=== PATIENT | male | born 1935 | race Caucasian/White ===

== ENCOUNTER 2017-01-31 05:03 | Inpatient (IN) | payer OTHER, MEDICARE ==
[~2017-01-31] VITALS: Ht 177.8 cm; Wt 75.1 kg
[2017-01-31] VITALS (18 sets, daily range): BP systolic 75–197; BP diastolic 47–105; PULSE 53–149; RESP 14–42; TEMP 97–98.4; O2SAT 92–100
[~2017-01-31 05:03] MED LIST: LOVA20TA PO
[2017-01-31] MEDS ORDERED: SODIUM CHLORIDE 0.9% FLUSH 10 ML FLUSH IVF PRN ×2 (05:15→05:30)
--- NOTE | 2017-01-31 05:15 | PD ---
HPI Chief Complaint: Respiratory Distress Time Seen by Provider: 05:08 Travel History International Travel<30 days: No Contact w/Intl Traveler<30days: No Traveled to known affect area: No History of Present Illness HPI 81-year-old male with history of COPD and lung cancer currently under radiation therapy and chemotherapy, presents to the ER today because of worsening shortness of breath. He states that it is the same as his previous issues with lung cancer. However, his daughter states that this is worse. He has been coughing. He denies any fevers, chest pains, or any other symptoms. Worse with exertion. He was given albuterol initially by EMS but that seemed to make his symptoms worse. Modifying Factors: None Associated Signs & Symptoms: Coughing, shortness of breath Risk Factors: Lung cancer history PFSH Past Medical History Cancer: Yes (LUNG ) Cardiovascular Problems: Yes High Cholesterol: Yes Chemotherapy: Yes Endocrine: No Gastrointestinal Disorders: No Genitourinary: No Immune Disorder: No Implanted Vascular Access Dvce: No Musculoskeletal: No Neurologic: No Psychiatric: No Reproductive: No Respiratory: No Past Surgical History Other Surgery: Yes (HERNIA REPAIR) Social History Alcohol Use: Yes ( 3-4 DAILY BEER) Tobacco Use: No Substance Use: No Allergies-Medications (Allergen,Severity, Reaction): Coded Allergies: No Known Allergies (Unverified , 01/31/17) Reported Meds & Prescriptions Reported Meds & Active Scripts Active Reported Prednisone 50 Mg Tab 100 Mg PO DAILY Doxycycline Hyclate 100 Mg Cap 100 Mg PO BID Lovastatin 40 Mg Tab 80 Mg PO DAILY Mirtazapine 7.5 Mg Tab 7.5 Mg PO HS Anoro Ellipta Inh (Umeclidinium/Vilanterol) 62.5-25 Mcg/Act Aero 1 Puff INH DAILY Review of Systems Except as stated in HPI: all other systems reviewed are Neg Physical Exam Narrative GENERAL: Well-developed barrel chested elderly white male patient in moderate respiratory distress. Able to mouth a few words at a time. Awake and oriented 3. SKIN: Focused skin assessment warm/dry. HEAD: Atraumatic. Normocephalic. EYES: Pupils equal and round. No scleral icterus. No injection or drainage. ENT: No nasal bleeding or discharge. Mucous membranes pink and moist. NECK: Trachea midline. No JVD. CARDIOVASCULAR: Regular rate and rhythm. No murmur appreciated. RESPIRATORY: Moderate accessory muscle use. Bilateral wheezing throughout. Breath sounds decrease in the right compared to the left. GASTROINTESTINAL: Abdomen soft, non-tender, nondistended. Hepatic and splenic margins not palpable. MUSCULOSKELETAL: No obvious deformities. No clubbing. No cyanosis. No edema. NEUROLOGICAL: Awake and alert. No obvious cranial nerve deficits. Motor grossly within normal limits. Normal speech. PSYCHIATRIC: Appropriate mood and affect; insight and judgment normal. Data Data Last Documented VS Vital Signs Date Time Temp Pulse Resp B/P Pulse Ox O2 Delivery O2 Flow Rate FiO2 01/31/17 05:44 117 30 134/90 96 BiPAP 01/31/17 05:11 50 01/31/17 05:04 97.0 Orders Complete Blood Count With Diff (01/31/17 05:08) Comprehensive Metabolic Panel (01/31/17 05:08) B-Type Natriuretic Peptide (01/31/17 05:08) Act Partial Throm Time (Ptt) (01/31/17 05:08) Prothrombin Time / Inr (Pt) (01/31/17 05:08) Ckmb (Isoenzyme) Profile (01/31/17 05:08) Troponin I (01/31/17 05:08) Arterial Blood Gas (Abg) (01/31/17 05:08) Iv Access Insert/Monitor (01/31/17 05:08) Electrocardiogram (01/31/17 05:08) Ecg Monitoring (01/31/17 05:08) Oximetry (01/31/17 05:08) Oxygen Administration (01/31/17 05:08) Chest, Single Ap (01/31/17 05:08) Sodium Chloride 0.9% Flush (Ns Flush) (01/31/17 05:15) Resp Bipap / Cpap Non Invas Vt (01/31/17 05:08) Lactic Acid Sepsis Protocol (01/31/17 05:10) Blood Culture (01/31/17 05:10) Diltiazem Inj (Cardizem Inj) (01/31/17 05:30) Diltiazem Inj (Cardizem Inj) (01/31/17 05:30) Sodium Chloride 0.9% Flush (Ns Flush) (01/31/17 05:30) Cefepime Inj (Maxipime Inj) (01/31/17 05:47) Azithromycin Inj (Zithromax Inj) (01/31/17 05:47) Admit Order (Ed Use Only) (01/31/17 05:56) Sodium Chlor 0.9% 1000 Ml Inj (Ns 1000 M (01/31/17 06:00) Labs Laboratory Tests Test 01/31/17 01/31/17 05:10 05:14 White Blood Count 34.4 TH/MM3 Red Blood Count 4.82 MIL/MM3 Hemoglobin 14.0 GM/DL Hematocrit 43.0 % Mean Corpuscular Volume 89.1 FL Mean Corpuscular Hemoglobin 29.0 PG Mean Corpuscular Hemoglobin 32.5 % Concent Red Cell Distribution Width 15.9 % Platelet Count 148 TH/MM3 Mean Platelet Volume 8.3 FL Neutrophils (%) (Auto) 69.3 % Lymphocytes (%) (Auto) 8.1 % Monocytes (%) (Auto) 7.7 % Eosinophils (%) (Auto) 14.5 % Basophils (%) (Auto) 0.4 % Neutrophils # (Auto) 23.8 TH/MM3 Lymphocytes # (Auto) 2.8 TH/MM3 Monocytes # (Auto) 2.6 TH/MM3 Eosinophils # (Auto) 5.0 TH/MM3 Basophils # (Auto) 0.1 TH/MM3 CBC Comment AUTO DIFF Prothrombin Time 11.5 SEC Prothromb Time International 1.0 RATIO Ratio Activated Partial 25.4 SEC Thromboplast Time Sodium Level 132 MEQ/L Potassium Level 4.3 MEQ/L Chloride Level 99 MEQ/L Carbon Dioxide Level 24.9 MEQ/L Anion Gap 8 MEQ/L Blood Urea Nitrogen 17 MG/DL Creatinine 0.93 MG/DL Estimat Glomerular Filtration 78 ML/MIN Rate Random Glucose 116 MG/DL Calcium Level 8.9 MG/DL Total Bilirubin 0.4 MG/DL Aspartate Amino Transf 15 U/L (AST/SGOT) Alanine Aminotransferase 20 U/L (ALT/SGPT) Alkaline Phosphatase 369 U/L Total Creatine Kinase 64 U/L Troponin I LESS THAN 0.02 NG/ML B-Type Natriuretic Peptide 175 PG/ML Total Protein 7.2 GM/DL Albumin 3.0 GM/DL Lactic Acid Level 2.8 mmol/L MDM Medical Decision Making Medical Screen Exam Complete: Yes Emergency Medical Condition: Yes Medical Record Reviewed: Yes Interpretation(s) EKG shows atrial fibrillation at a rate of 160 bpm with no signs of acute ST-T changes. Last 24 hours Impressions Chest X-Ray 01/31/17 0508 Signed Impressions: Service Date/Time: Tuesday, January 31, 2017 05:12 - CONCLUSION: 1. Right-sided atelectasis versus pneumonia with large right effusion. The patient has known malignancy Aidan Razo MD Laboratory Tests Test 01/31/17 01/31/17 05:10 05:14 White Blood Count 34.4 TH/MM3 (4.0-11.0) Platelet Count 148 TH/MM3 (150-450) Lymphocytes (%) (Auto) 8.1 % (9.0-44.0) Eosinophils (%) (Auto) 14.5 % (0.0-4.0) Neutrophils # (Auto) 23.8 TH/MM3 (1.8-7.7) Monocytes # (Auto) 2.6 TH/MM3 (0-0.9) Eosinophils # (Auto) 5.0 TH/MM3 (0-0.4) Sodium Level 132 MEQ/L (136-145) Estimat Glomerular Filtration 78 ML/MIN (>89) Rate Random Glucose 116 MG/DL (74-106) Alkaline Phosphatase 369 U/L (45-117) Troponin I LESS THAN 0.02 NG/ML (0.02-0.05) B-Type Natriuretic Peptide 175 PG/ML (0-100) Albumin 3.0 GM/DL (3.4-5.0) Lactic Acid Level 2.8 mmol/L (0.4-2.0) Differential Diagnosis Shortness of breath, coughingCOPD exacerbation versus pneumonia versus pneumothorax versus CHF versus dysrhythmias Narrative Course Initial EKG shows A. fib with rapid ventricular response at a rate of 160 bpm. Patient was given Cardizem and some IV fluids to his hypotension. BiPAP was added to improve his breathing and oxygenation. His blood pressure improved and his breathing improved once he was put on BiPAP. Chest x-ray shows significant right pleural effusion, whiteout of the right lung. Initial white blood cell count was 34. IV antibiotics were started after blood cultures were drawn. At this point, patient was determined in need of ICU care. Patient is fairly complex and at this point, the case was discussed with Dr. Collier for admission. I have talked to patient's and family regarding patient's problems and plan for admission as well. Aggregate critical care time was 35 minutes. Time to perform other separately billable procedures was not included in the critical care time. My time did not include minutes spent treating any other patients simultaneously or on activities that did not directly contribute to the patient's treatment. The services I provided to this patient were to treat and/or prevent clinically significant deterioration that could result in: Respiratory distress, respiratory failure, fulminant pneumonia, sepsis, I provided critical care services requiring my management, as noted below: Chart data review, documentation time, medication orders and management, vital sign assessments/reviewing monitor data, ordering and reviewing lab tests, ordering and interpreting/reviewing x-rays and diagnostic studies, care of the patient and discussion of the patient with the admitting physicians. Diagnosis Primary Impression: Severe sepsis Additional Impression: Pleural effusion, right Admitting Information Admitting Physician Requests: Admit Domenico Solis MD January 31, 2017 05:15
[2017-01-31 05:25] LABS: AUTOMATED NEUTROPHIL # 23.8 TH/MM3 (1.8-7.7); BASOPHIL # 0.1 TH/MM3 (0-0.2); BASOPHIL % 0.4 % (0.0-2.0); EOSINOPHIL % 14.5 % (0.0-4.0); LYMPH % 8.1 % (9.0-44.0); LYMPHOCYTE # 2.8 TH/MM3 (1.0-4.8); MEAN CELL VOLUME 89.1 FL (80.0-100.0); MEAN CORPUSCULAR HGB CONC 32.5 % (32.0-36.0); MONO % 7.7 % (0.0-8.0); NEUT % 69.3 % (16.0-70.0); PLATELET COUNT 148 TH/MM3 (150-450); RED BLOOD COUNT 4.82 MIL/MM3 (4.50-5.90); RED CELL DISTRIBUTION WIDTH 15.9 % (11.6-17.2); WHITE BLOOD COUNT 34.4 TH/MM3 (4.0-11.0)
[2017-01-31 05:30] LABS: HEMO FLAGS AUTO DIFF
[2017-01-31] MEDS ORDERED: DILTIAZEM INJ 125 MG in SODIUM CHLORIDE 0.9% INJ 100 ML IV SCH (05:30)
[2017-01-31] MEDS ORDERED: DILTIAZEM HCL 25 MG/5 ML VIAL IV PUSH ONE (05:30)
[2017-01-31 05:46] LABS: APTT (PATIENT) 25.4 SEC (24.3-30.1); PROTHROMBIN TIME - PATIENT 11.5 SEC (9.8-11.6)
[2017-01-31] MEDS ORDERED: AZITHROMYCIN INJ 500 MG in SODIUM CHLOR 0.9% 250 ML INJ 250 ML IV STA (05:47)
[2017-01-31] MEDS ORDERED: CEFEPIME INJ 2,000 MG in SODIUM CHLORIDE 0.9% INJ 100 ML IV STA (05:47)
--- NOTE | 2017-01-31 05:52 | RADRPT ---
EXAM DATE/TIME: 01/31/2017 05:12 [facility] COMPARISON: CHEST SINGLE AP, January 23, 2014, 5:22. INDICATIONS : Shortness of breath. 4 Pack a day smoker. MEDICAL HISTORY : Chronic obstructive pulmonary disease. Lung Cancer SURGICAL HISTORY : None. ENCOUNTER: Initial ACUITY: 1 day PAIN SCORE: 0/10 LOCATION: Bilateral chest FINDINGS: The cardiac silhouette is normal in transverse diameter. There is near-complete opacification the rig ht hemithorax The left lung is free of acute parenchymal opacity. There is prominence of the aortic k nob is with calcification characteristic of atherosclerotic vascular disease. CONCLUSION: 1. Right-sided atelectasis versus pneumonia with large right effusion. The patient has known malignan cy Aidan Razo MD on January 31, 2017 at 5:50 Board Certified Radiologist. This report was verified electronically.
[2017-01-31] MEDS ORDERED: PRED50 PO (05:58)
[2017-01-31] MEDS ORDERED: UMEC1AER INH (05:58)
[2017-01-31] MEDS ORDERED: MIRT1TAB PO (05:58)
[2017-01-31] MEDS ORDERED: LOVA40TA PO (05:58)
[2017-01-31] MEDS ORDERED: DOXY100C PO (05:58)
[2017-01-31] MEDS ORDERED: SODIUM CHLOR 0.9% 1000 ML INJ 1,000 ML IV ONE (06:00)
[2017-01-31 06:01] LABS: ALKALINE PHOSPHATASE 369 U/L (45-117); TOTAL BILIRUBIN ADULT 0.4 MG/DL (0.2-1.0)
[2017-01-31 06:09] LABS: ALT (GPT) 20 U/L (12-78); ANION GAP 8 MEQ/L (5-15); AST (GOT) 15 U/L (15-37); BICARBONATE 24.9 MEQ/L (21.0-32.0); BLOOD UREA NITROGEN 17 MG/DL (7-18); CHLORIDE 99 MEQ/L (98-107); GLOMERULAR FILTRATION RATE 78 ML/MIN (>89); POTASSIUM 4.3 MEQ/L (3.5-5.1); SODIUM (NA) 132 MEQ/L (136-145)
[2017-01-31 06:10] LABS: CREATINE KINASE 64 U/L (39-308)
[2017-01-31 06:16] LABS: BLOOD GAS BASE EXCESS -2.7 mmol/L (-2-2); BLOOD GAS HCO3 21 mmol/L (22-26); BLOOD GAS METHEMOGLOBIN 0.3 % (0-2); BLOOD GAS O2 HGB SATURATION 94 % (90-100); BLOOD GAS OXYGEN CONTENT 15.3 Vol % (12.0-20.0); BLOOD GAS PCO2 36 mmHg (38-42); BLOOD GAS PO2 72 mmHG (61-120); BLOOD GAS TOTAL HGB 11.5 G/DL (12.0-16.0); CRITICAL VALUE NO; DRAW SITE LT RADIAL; FIO2 35 %; NUMBER OF ARTERIAL PUNCTURES 1; OXYGEN DEVICE BIPAP; STAT YES; TEMP CORR TO 98.6; ULNAR PULSE PRESENT; VENT SETTINGS IPAP=12 EPAP=6
[2017-01-31 06:17] LABS: BANDS 16 % (0-6); EOSINOPHILS 14 % (0-4); NEUTROPHIL # MANUAL DIFF 26.1 TH/MM3 (1.8-7.7); POLYS (SEG NEUTROPHILS) 60 % (16-70); WBC DIFF SAMPLE 100
[2017-01-31 06:18] LABS: ACANTHOCYTES OCC (NORMAL); DOHLE BODIES PRESENT (NONE SEEN); PLATELET ESTIMATE SMEAR NORMAL (NORMAL); PLATELET MORPHOLOGY NORMAL (NORMAL); SCAN/DIFF FINAL DIFF MANUAL; TOXIC VACUOLATION PRESENT (NONE SEEN)
[2017-01-31] MEDS ORDERED: MAGNESIUM SULFATE INJ 4 GM in SODIUM CHLORIDE 0.9% INJ 92 ML IV PRN (06:45)
[2017-01-31] MEDS ORDERED: POTASSIUM CHLOR 40 MEQ PREMIX 100 ML IV PRN ×2 (06:45)
[2017-01-31] MEDS ORDERED: ACETAMINOPHEN 325 MG TAB PO PRN (06:45)
[2017-01-31] MEDS ORDERED: MAGNESIUM OXIDE 400 MG TAB PO PRN (06:45)
[2017-01-31] MEDS ORDERED: SODIUM PHOSPHATE INJ 30 MMOL in SODIUM CHLOR 0.9% 250 ML INJ 240 ML IV PRN (06:45)
[2017-01-31] MEDS ORDERED: MAGNESIUM SULFATE INJ 2 GM in SODIUM CHLORIDE 0.9% INJ 96 ML IV PRN (06:45)
[2017-01-31] MEDS ORDERED: POTASSIUM CHLOR 20 MEQ PREMIX 100 ML IV PRN ×2 (06:45)
[2017-01-31] MEDS ORDERED: POTASSIUM PHOSPHATE MONOBASIC 500 MG TAB PO PRN (06:45)
[2017-01-31] MEDS ORDERED: POTASSIUM PHOSPHATE MONOBASIC 500 MG TAB PO/TUBE PRN (06:45)
[2017-01-31] MEDS ORDERED: DEXTROSE 50% IN WATER 50 ML VIAL(D50) IV PUSH PRN (06:45)
[2017-01-31] MEDS ORDERED: CHLORHEXIDINE GLUCONATE 2 % 1 PACK (2 CLOTHS) TOP PRN (06:45)
[2017-01-31] MEDS ORDERED: RESP: ALBUTEROL 2.5 MG/IPRATROPIUM 0.5 MG NEB (PRN) INH (06:45)
[2017-01-31] MEDS ORDERED: MISCELLANEOUS NURSING INFORMATION XX SCH (06:45)
[2017-01-31] MEDS ORDERED: ONDANSETRON HCL 4 MG/2 ML VIAL IV PRN (06:45)
[2017-01-31] MEDS ORDERED: GLUCAGON 1 MG/ML VIAL OTHER PRN (07:00)
[2017-01-31] MEDS: SODIUM CHLOR 0.9% 1000 ML INJ 1,000 ML IV SCH ×3 (07:13→20:28)
[2017-01-31] MEDS: ENOXAPARIN SODIUM 40 MG/0.4 ML SYRINGE SQ SCH (07:15)
[2017-01-31 07:21] LABS: LACTIC ACID GHOST NOT REPORTABLE
[2017-01-31] MEDS ORDERED: IOHEXOL 350 MG/ML 10 ML VIAL (for RAD DIAG) IV ONE (07:35)
--- NOTE | 2017-01-31 07:47 | HHI.HP ---
HPI Service Critical Care Medicine Primary Care Physician Non-Staff Admission Diagnosis pneumonia/right pleural effusion/severe sepsis/A. fib with rapid cornelia Diagnosis: Chief Complaint: shortness of breath Travel History International Travel<30 Days: No Contact w/Intl Traveler <30 Da: No Traveled to Known Affected Are: No History of Present Illness This is an 81yM with history of lung cancer s/p chemo and radiation, the last treatment was well over a year ago, who presents with a slowly progressive shortness of breath and sputum production over the last few weeks. He denies any fever or chills. denies dyspnea on exertion, but endorses significant progressive fatigue. He and his family state that the intent of his cancer treatment was curative and not palliative, and he does not currently know if his cancer is in remission or not. In the emergency department, he was significantly dyspneic and in respiratory distress. He was placed on BiPAP with improvement in his symptoms. he was also found to be in new-onset Atrial fibrillation with rapid ventricular response. He was started on a diltiazem drip for this. His chest xray demonstrates complete opacification of the right lung field with some element of mediastinal shift towards the right. His laboratory data is significant for a wbc 34k, plt 148, Na 132, Cr 0.93, alk phos 369, BNP 175, lactate 2.8. negative troponin. Critical Care medicine is consulted to evaluate and manage his hypoxic respiratory failure. Review of Systems ROS Limitations: Clinical Condition, Poor Historian Constitutional: COMPLAINS OF: Fatigue, DENIES: Fever, Chills Respiratory: COMPLAINS OF: Cough, Sputum production, Shortness of breath, DENIES: Wheezing, Hemoptysis Cardiovascular: DENIES: Chest pain, Dyspnea on Exertion Gastrointestinal: DENIES: Abdominal pain, Constipation, Diarrhea, Nausea, Vomiting ROS BiPAP limits full ROS Past Family Social History Allergies: Coded Allergies: No Known Allergies (Unverified , 01/31/17) Past Medical History Lung Cancer with mets to lymph nodes Hyperlipidemia Prior chemotherapy and radiation therapy Past Surgical History Hernia Repair Reported Medications Prednisone 50 Mg Tab 100 Mg PO DAILY Doxycycline Hyclate 100 Mg Cap 100 Mg PO BID Lovastatin 40 Mg Tab 80 Mg PO DAILY Mirtazapine 7.5 Mg Tab 7.5 Mg PO HS Anoro Ellipta Inh (Umeclidinium/Vilanterol) 62.5-25 Mcg/Act Aero 1 Puff INH DAILY Active Ordered Medications See MAR Family History reviewed with the patient and found to be noncontributory to his acute illness. Social History drinks 3-4 beers daily, no tob, etoh. Physical Exam Vital Signs Vital Signs Date Time Temp Pulse Resp B/P Pulse Ox O2 Delivery O2 Flow Rate FiO2 01/31/17 06:14 88 24 139/76 100 BiPAP 01/31/17 05:44 117 30 134/90 96 BiPAP 01/31/17 05:11 92 BiPAP 50 01/31/17 05:11 92 BiPAP 01/31/17 05:05 98 40 01/31/17 05:04 97.0 149 34 197/105 92 Physical Exam GENERAL: Elderly cachectic male, lying in bed, moderate distress due to dyspnea HEENT: Normocephalic. Atraumatic. Pupils equal, round, reactive, conjugate. Mucous membranes are moist. BiPAP in place. NECK: The midline. There is no JVD. CHEST: Significant decreased breath sounds on the right. Scant wheezes. CARDIOVASCULAR: Tachycardic rate, irregularly irregular rhythm. Appears to be atrial fibrillation by telemetry. ABDOMEN: Soft, nontender, nondistended. No guarding. MUSCULOSKELETAL: No peripheral edema. Distal pulses 2+. NEUROLOGICAL: RASS 0. CAM -. No gross focal motor or sensory deficits. Follows commands. Laboratory Laboratory Tests Test 01/31/17 01/31/17 01/31/17 05:10 05:14 06:05 White Blood Count 34.4 Red Blood Count 4.82 Hemoglobin 14.0 Hematocrit 43.0 Mean Corpuscular Volume 89.1 Mean Corpuscular Hemoglobin 29.0 Mean Corpuscular Hemoglobin 32.5 Concent Red Cell Distribution Width 15.9 Platelet Count 148 Mean Platelet Volume 8.3 Neutrophils (%) (Auto) 69.3 Lymphocytes (%) (Auto) 8.1 Monocytes (%) (Auto) 7.7 Eosinophils (%) (Auto) 14.5 Basophils (%) (Auto) 0.4 Neutrophils # (Auto) 23.8 Lymphocytes # (Auto) 2.8 Monocytes # (Auto) 2.6 Eosinophils # (Auto) 5.0 Basophils # (Auto) 0.1 CBC Comment AUTO DIFF Differential Total Cells 100 Counted Neutrophils % (Manual) 60 Band Neutrophils % 16 Lymphocytes % 6 Monocytes % 4 Eosinophils % 14 Neutrophils # (Manual) 26.1 Differential Comment FINAL DIFF MANUAL Toxic Vacuolation PRESENT Dohle Bodies PRESENT Platelet Estimate NORMAL Platelet Morphology Comment NORMAL Acanthocytes OCC Prothrombin Time 11.5 Prothromb Time International 1.0 Ratio Activated Partial 25.4 Thromboplast Time Sodium Level 132 Potassium Level 4.3 Chloride Level 99 Carbon Dioxide Level 24.9 Anion Gap 8 Blood Urea Nitrogen 17 Creatinine 0.93 Estimat Glomerular Filtration 78 Rate Random Glucose 116 Calcium Level 8.9 Total Bilirubin 0.4 Aspartate Amino Transf 15 (AST/SGOT) Alanine Aminotransferase 20 (ALT/SGPT) Alkaline Phosphatase 369 Total Creatine Kinase 64 Troponin I LESS THAN 0.02 B-Type Natriuretic Peptide 175 Total Protein 7.2 Albumin 3.0 Lactic Acid Level 2.8 Blood Gas Puncture Site LT RADIAL Blood Gas Patient Temperature 98.6 Blood Gas HCO3 21 Blood Gas Base Excess -2.7 Blood Gas Oxygen Saturation 94 Arterial Blood pH 7.39 Arterial Blood Partial 36 Pressure CO2 Arterial Blood Partial 72 Pressure O2 Arterial Blood Oxygen Content 15.3 Arterial Blood 1.0 Carboxyhemoglobin Arterial Blood Methemoglobin 0.3 Blood Gas Hemoglobin 11.5 Oxygen Delivery Device BIPAP Blood Gas Ventilator Setting IPAP=12 EPAP=6 Blood Gas Inspired Oxygen 35 Date/Time Procedure Status Source Growth 01/31/17 05:35 Aerobic Blood Culture Received Blood Peripheral Pending 01/31/17 05:35 Anaerobic Blood Culture Received Blood Peripheral Pending Result Diagram: 01/31/17 0510 01/31/17 0510 Imaging Last Impressions Chest X-Ray 01/31/17 0508 Signed Impressions: Service Date/Time: Tuesday, January 31, 2017 05:12 - CONCLUSION: 1. Right-sided atelectasis versus pneumonia with large right effusion. The patient has known malignancy Aidan Razo MD Assessment and Plan Assessment and Plan Assessment: This is an 81-year-old male with history of lung cancer, unknown if this is in remission at this time. Who presents with subacute shortness of breath and found to have leukocytosis and an opacified right lung field. This certainly could be a malignant effusion, community-acquired pneumonia, parapneumonic effusion, postobstructive pneumonia from residual lung cancer, or change stated effusion. Certainly pulmonary emboli could also be in the differential given his history of malignancy. We will proceed with CT pulmonary injury in which we'll give a better look at the pulmonary parenchyma as well as rule out PE. The atrial fibrillation with rapid ventricular response could be secondary to his sepsis from pneumonia or could be from either volume overload or from a PE. For now, we will cover him empirically with antibiotics and continue BiPAP for his respiratory distress. I again talked to him and his family about CODE STATUS, and he wants to remain a full code. Plan by systems: Neurologic: Tylenol as needed for pain or fever Respiratory: Acute hypoxic respiratory failure Opacification of the right lung field Possible community-acquired pneumonia History of lung cancer Continue BiPAP Head of bed 30 Wean FiO2 for goal SPO2 greater than 90% A.m. chest x-ray CT pulmonary injury gram to rule out pulmonary emboli and better evaluate lung parenchyma Cardiovascular: New-onset atrial fibrillation with rapid ventricular response Continue Cardizem drip Follow-up thyroid function Follow-up 2-D echo Goal potassium greater than 4.5, mag greater than 2.5 Renal: Trend creatinine with daily BMPs -- Strict I/Os FEN/GI: Acute protein calorie malnutritionmoderate Nothing by mouth on BiPAP Normal saline at 84 mL/hr Daily BMP ICU electrolyte protocol Heme/ID: Leukocytosis Possible community acquired pneumonia Possible postobstructive pneumonia Continue cefepime and azithromycin Legionella and pneumococcal urinary antigen Sputum culture Follow-up blood cultures Daily CBC Endocrine: Hyperglycemia of critical illness -- SSI, medium scale, every 6 hours Prophylaxis: GI Prophylaxis Protonix 40 mg IV 24 hours DVT Prophylaxis -- SCDs Lovenox 40 mg subcutaneous every 24 Lines: Peripheral IVs Dispo: Admit to the ICU. Code Status Full code Discussed Condition With I discussed his care with the patient, his at bedside, his daughter bedside. Brett Sofia MD January 31, 2017 07:47
--- NOTE | 2017-01-31 08:13 | RADRPT ---
EXAM DATE/TIME: 01/31/2017 07:34 [facility] COMPARISON: CT THORAX W/O CONTRAST, January 17, 2014, 14:27. INDICATIONS : Evaluate for pulmonary emboli. IV CONTRAST: 60 cc Omnipaque 350 (iohexol) IV RADIATION DOSE: 8.55 CTDIvol (mGy) MEDICAL HISTORY : Chronic obstructive pulmonary disease. Carcinoma, lung. Cardiovascular disease SURGICAL HISTORY : Hernia repair. ENCOUNTER: Initial ACUITY: 1 day PAIN SCALE: 4/10 LOCATION: Bilateral chest TECHNIQUE: Volumetric scanning of the chest was performed using a pulmonary embolism protocol MIP images were re constructed. Using automated exposure control and adjustment of the mA and/or kV according to patien t size, radiation dose was kept as low as reasonably achievable to obtain optimal diagnostic quality images. FINDINGS: PULMONARY ARTERIES: No filling defects are seen in the pulmonary arteries through the segmental level. LUNGS: There is masslike consolidation in the right apex and right perihilar region. Severe centrilobular em physema. Nodule in the left upper lobe anterolaterally measuring 7 mm. A few other smaller subcentime ter nodules are also noted in the left lung anteriorly. Nodular scarring left lower lobe noted.. PLEURAE: There is no pleural thickening or pleural effusion. MEDIASTINUM: There is good visualization of the great vessels of the middle mediastinum. No evidence of mediastin al or hilar adenopathy/mass. MUSCULOSKELETAL: Diffuse sclerotic metastasis seen within the thoracolumbar spine. A few rib lesions are also noted.. MISCELLANEOUS: The visualized upper abdominal organs demonstrate low attenuation liver lesions. CONCLUSION: 1. No evidence for pulmonary embolism. 2. Masslike consolidation right apex and right perihilar region, is consistent with bronchogenic carc inoma. 3. Diffuse sclerotic metastasis. 4. There are metastatic lesions to the liver Jani Gilman MD on January 31, 2017 at 7:57 Board Certified Radiologist. This report was verified electronically.
[2017-01-31] MEDS: DOCUSATE SODIUM 50 MG/SENNA 8.6 MG TAB PO SCH ×2 (09:00→21:00)
[2017-01-31] MEDS: RESP: ALBUTEROL 2.5 MG/IPRATROPIUM 0.5 MG NEB (SCH) INH ×5 (09:13→23:35)
[2017-01-31 09:42] LABS: FREE T4 0.84 NG/DL (0.76-1.46)
[2017-01-31] MEDS: PANTOPRAZOLE SODIUM 40 MG VIAL IV SCH (09:48)
[2017-01-31] MEDS ORDERED: ALBUMIN HUMAN 25% 25 GM/100 ML BAGP IV ONE ×3 (11:00→13:30)
[2017-01-31] MEDS: PHENYLEPHRINE INJ 40 MG in DEXTROSE 5% IN WATE 500 ML INJ 496 ML IV SCH ×4 (11:21→17:16)
[2017-01-31] MEDS ORDERED: SODIUM CHLORID 0.9% 500 ML INJ 500 ML IV ONE ×2 (11:45→12:30)
[2017-01-31] MEDS ORDERED: CHLORHEXIDINE GLUCONATE 2 % 1 PACK (2 CLOTHS)(extra cloths) TOPICAL PRN (11:45)
[2017-01-31] MEDS: INSULIN NovoLIN REGULAR SUPPLEMENTAL SCALE SQ SCH ×2 (12:00→18:00)
[2017-01-31] MEDS ORDERED: MIDAZOLAM HCL 5 MG/ML VIAL (1 ML) ONE ×2 (12:34→17:15)
[2017-01-31] MEDS ORDERED: MIDAZOLAM HCL 2 MG/2 ML VIAL IV ONE (13:15)
[2017-01-31] MEDS: CEFEPIME INJ 2,000 MG in SODIUM CHLORIDE 0.9% INJ 100 ML IV SCH ×2 (13:37→20:27)
--- NOTE | 2017-01-31 13:41 | RADRPT ---
EXAM DATE/TIME: 01/31/2017 13:04 [facility] COMPARISON: CHEST SINGLE AP, January 31, 2017, 5:12. CT PULMONARY ANGIOGRAM, January 31, 2017, 7:34. INDICATIONS : Post right thoracentesis. MEDICAL HISTORY : Chronic obstructive pulmonary disease. Lung Cancer. SURGICAL HISTORY : None. ENCOUNTER: Subsequent ACUITY: 1 day PAIN SCORE: Non-responsive. LOCATION: Bilateral chest FINDINGS: There is a large basilar pneumothorax post right thoracentesis. The right hilar structures appear to be slightly displaced cephalad and there is contraction of opacified lung tissue toward the hilum. Th e left lung is stable and grossly clear. Visualized cardiac contours are stable. CONCLUSION: Large right basilar pneumothorax following thoracentesis. Lon Butler MD on January 31, 2017 at 13:35 Board Certified Radiologist. This report was verified electronically.
--- NOTE | 2017-01-31 13:45 | PD.CONS ---
Consult Service Palliative Care Consult Requested By Dr Sofia . Primary Care Physician Non-Staff Reason for Consultation a. To assist with evaluation and management of symptoms including: dyspnea, anxiety, malnutrition b. To assist medical decision maker(s) with: better understanding of current medical conditions; weighing benefits/burdens of medical treatment options; making medical treatment decisions. HPI History of Present Illness this 81 yr old man presented to the ED on 01/31/17, with c/o worsening SOB. He has known hx of COPD, and lung cancer currently undergoing radiation/ chemotherapy. He indicated it was the same as his prior issues w/ lung cancer, however daughter indicated it was worse. Denied fever, CP, other sx. Worsened w exertion, EMS provided albuterol which apparently made sx worse. * He was noted to be a and O at ED presentation. EKG noted atrial fibrillation rate 160. No acute ST changes. He received Cardizem, IV fluids. Hypotensive. CXR= right-sided atelectasis versus pneumonia with large right effusion. Known malignancy. Was placed on BiPAP. + Leukocytosis, WBC 34. Smith cultures obtained, started on IV antibiotics cefepime, azithromycin. He is admitted to ICU for further evaluation and management. * Order for CT angiogram rule out pulmonary emboli, further evaluate lung parenchyma. Tensive's notes discussion with patient, family. Patient full code as per predatory hunter discussion with patient and family. Palliative care consulted to assist with clarification of goals of treatment. * CT angiogram with no evidence for PE. Masslike consolidation right apex and right perihilar region consistent with bronchogenic carcinoma. Diffuse sclerotic metastasis. Metastatic lesions to liver. (Dual visit jaimie FLANAGAN) Patient seen in room, and daughter at bedside. He is alert and oriented though speech is quite limited by BiPAP mask , dyspnea. s/p thoracentesis removal 2500ML rt side. +hypotension post procedure , ?2/2 versed. +on Neosynephrine 40/mcgs min. Additional oncology history: ==Patient first diagnosed with lung cancer in 01/2014he fell in the shower injuring his right ribs resulting in pneumothorax. He required a chest tube, incidental findings of right lung mass 2.8 cm right upper lobe, + findings of severe emphysema. bx= Non-small cell lung carcinoma. Pulmonology, thoracic surgery were consulted patient was not felt to be candidate for surgery because of poor home in very function. == Completed stereotactic radiotherapy x 8 treatments 05/2014. ==06/2014 right apical lesion smaller pretracheal node present on the right/ consistent with disease progression == 07/2014 started carbo/Taxol plus XRT through 09/2014 == 05/2015 weight 56 kg == 2015 weight 57 kg //oncology follow-up note chronic cough with shortness of breath. A sling dyspnea on exertion and cough. Apical mass felt to be stable. Subcarinal mediastinal adenopathy stable. No clear progression of disease at this time. Continue close monitoring. == 02/2016 seen by oncology for follow-up, noted to be doing well. Maintaining active lifestyle. Weight 55 kg. Patient planning on traveling out of state, oncology planning for follow-up CT when he returns. == pt/family inform NO ONCOLOGY follow up since 02/2016. Had recently called Primary MD ANDRA dyspnea, abx ordered, doxycycline. Function/Cognitive Trajectory Prior to admission living at home with his . No assistance required. Review of Systems ROS Limitations: Speech Impaired (On BIPAP mask, +dyspnea limits conversation ) Constitutional: COMPLAINS OF: Change in appetite (decreased), Generalized weakness, DENIES: Pain Respiratory: COMPLAINS OF: Cough (chronic), Shortness of breath (chronic, worsening in the past 1.5 weeks) Cardiovascular: COMPLAINS OF: Dyspnea on Exertion (chronic, worsening), DENIES : Chest pain, Lower Extremity Edema Gastrointestinal: COMPLAINS OF: Anorexia (recent decrease in appetite), DENIES : Abdominal pain, Constipation, Nausea, Vomiting, Difficulty Swallowing Genitourinary: DENIES: Hematuria Musculoskeletal: DENIES: Joint pain, Back pain Hematologic/Lymphatics: COMPLAINS OF: Bruising (easy bruising ) Past Family Social History Coded Allergies: No Known Allergies (Unverified , 01/31/17) Past Medical History Lung cancer with metastasis to lymph nodes-undergoing chemotherapy, radiation Hyperlipidemia . Past Surgical History Needle aspiration biopsy 2013 Hernia repair 1958 Hip surgery 1999 Knee surgery 1969 . Tonsillectomy Reported Medications Prednisone 50 Mg Tab 100 Mg PO DAILY Doxycycline Hyclate 100 Mg Cap 100 Mg PO BID Lovastatin 40 Mg Tab 80 Mg PO DAILY Mirtazapine 7.5 Mg Tab 7.5 Mg PO HS Anoro Ellipta Inh (Umeclidinium/Vilanterol) 62.5-25 Mcg/Act Aero 1 Puff INH DAILY . Current Medications Medications (Trade) Dose Ordered Sig/Garcia Route Start Time Stop Time Status Last Admin Sodium Chloride 2 ml 2 ml UNSCH PRN IVF 01/31/17 05:15 (Cardizem Inj/NS Inj) 125 ml @ 0 mls/hr TITRATE IV 01/31/17 05:30 01/31/17 05:44 (NS Flush) 2 ml UNSCH PRN IVF 01/31/17 05:30 Magnesium Oxide 800 mg 800 mg UNSCH PRN PO 01/31/17 06:45 Magnesium Sulfate 4 gm/Sodium Chloride 100 ml @ 50 mls/hr UNSCH PRN IV 01/31/17 06:45 Magnesium Sulfate 2 gm/Sodium Chloride 100 ml @ 50 mls/hr UNSCH PRN IV 01/31/17 06:45 Potassium Chloride 100 ml @ 50 mls/hr Q2H PRN IV 01/31/17 06:45 Potassium Chloride 100 ml @ 50 mls/hr Q2H PRN IV 01/31/17 06:45 Potassium Chloride 100 ml @ 50 mls/hr Q2H PRN IV 01/31/17 06:45 (KCl 40 Meq Premix Inj) 100 ml @ 25 mls/hr UNSCH PRN IV 01/31/17 06:45 (K-Phos) 2,000 mg Q4H PRN PO 01/31/17 06:45 Potassium Phosphate 2000 mg 2,000 mg UNSCH PRN PO/TUBE 01/31/17 06:45 (Sodium Phosphate Inj/NS 250 ml Inj) 250 ml @ 42 mls/hr UNSCH PRN IV 01/31/17 06:45 (D50w (Vial) Inj) 25 ml UNSCH PRN IV PUSH 01/31/17 06:45 Insulin Human Regular 1 1 Q6HR SQ 01/31/17 12:00 (NS 1000 ml Inj) 1,000 ml @ 84 mls/hr [id number] IV 01/31/17 06:32 01/31/17 07:13 (Tylenol) 650 mg Q6H PRN PO 01/31/17 06:45 (Protonix Inj) 40 mg DAILY IV 01/31/17 09:00 01/31/17 09:48 (Zofran Inj) 4 mg Q6H PRN IV 01/31/17 06:45 (Jacinda-Colace) 2 tab BID PO 01/31/17 09:00 (Lovenox Inj) 40 mg Q24H SQ 01/31/17 08:00 01/31/17 07:15 Miscellaneous Information 1 Q361D XX 01/31/17 06:45 (Chlorhexidine 2% Cloth) 3 pack Taper DAILY@04 TOP 02/01/17 04:00 01/28/18 03:59 (Chlorhexidine 2% Cloth) 3 pack UNSCH PRN TOP 01/31/17 06:45 Glucagon 1 mg 1 mg UNSCH PRN OTHER 01/31/17 07:00 Cefepime HCl 2000 mg/Sodium Chloride 100 ml @ 200 mls/hr Q8H IV 01/31/17 14:00 Azithromycin 500 mg/Sodium Chloride 250 ml @ 250 mls/hr Q24H IV 02/01/17 05:00 (Neosynephrine Inj/D5W 500 ml Inj) 500 ml @ 0 mls/hr TITRATE IV 01/31/17 12:00 01/31/17 11:21 Miscellaneous Information Patient in critical care unit? Ass... Q361D .XX 01/31/17 11:45 (Chlorhexidine 2% Cloth) 3 pack DAILY@04 TOPICAL 02/01/17 04:00 02/05/17 04:01 (Chlorhexidine 2% Cloth) 3 pack UNSCH PRN TOPICAL 01/31/17 11:45 02/05/17 11:35 Family History No family history of cancer. Mother at age 99 father at age 86. Substance Use Tobacco: Former smoker to PPD 40 years, quit 20 years ago Alcohol: 34 beers daily Prescription med abuse: None Illicits: None Psychosocial History Patient lives at home with spouse, x 61 years. Has 1 brother, 2 sisters. Originally from [place], lived in [place] since 1997. 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 Has 3 children, 3 girls. Living Will: Completed, but not made available Health Care Surrogate: Completed, but not made available Durable Power of Change Control Coordinator: Completed, but not made available Ethical and Legal Issues Patient is currently able to participate in decision-making. Indicates has advanced directive or possible DPOA document naming his , daughter Lata as secondary. Requested copies of this documentation. Daughter aLta expresses concern that patient has had mental status deterioration, she suspects dementia process and patient does not remember information from one day to the other, she is concerned about the patient's ability to make informed decisions. Physical Exam Vital Signs Date Time Temp Pulse Resp B/P Pulse Ox O2 Delivery O2 Flow Rate FiO2 01/31/17 12:29 95 35 01/31/17 10:00 85 01/31/17 08:30 95 01/31/17 08:00 97.3 87 31 82/56 100 01/31/17 07:20 98 BiPAP 50 01/31/17 07:20 97.8 96 28 176/67 98 BiPAP 50 01/31/17 07:20 97.8 96 28 176/67 98 BiPAP 50 01/31/17 06:14 88 24 139/76 100 BiPAP 01/31/17 05:44 117 30 134/90 96 BiPAP 01/31/17 05:11 92 BiPAP 50 01/31/17 05:11 92 BiPAP 01/31/17 05:05 98 40 01/31/17 05:04 97.0 149 34 197/105 92 Exam CONSTITUTIONAL/GENERAL: This is a thin, chronically ill-appearing patient. Alert, pleasant. TUBES/LINES/DRAINS: Peripheral IVs bilateral upper extremities, BiPAP mask SKIN: No jaundice, rashes, or lesions. Several scattered areas Ecchymoses on upper extremities. No wounds seen anteriorly. Skin temperature appropriate. Not diaphoretic. HEAD: Atraumatic. Normocephalic. EYES: Pupils equal and round and reactive. Extraocular motions intact. No scleral icterus. No injection or drainage. Fundi not examined. ENT: Slightly hard of hearing. Unable to visualize oropharynx, nasal passage due to BiPAP mask. NECK: Trachea midline. Supple, nontender. CARDIOVASCULAR: Irregular rate and rhythm, atrial fibrillation at bedside monitor. Difficult to auscultate over noisy breath sounds. Unable to palpate pedal pulses, distal feet are cool to touch, bottom surface of toes with blueish color,poor circulation. Faintly palpable posterior tibial pulse. RESPIRATORY/CHEST: Symmetric, mildly labored respirations via BiPAP.+ Abdominal muscle use. Coarse air movement throughout, slight decreased air to basis. GASTROINTESTINAL: Abdomen soft,flat non-tender, nondistended. No palpable masses. No guarding. Bowel sounds present. GENITOURINARY: Without palpable bladder distension. Reports voids in urinal as needed. MUSCULOSKELETAL: Extremities without clubbing, cyanosis, or edema. No joint tenderness or effusion noted. Distal feet cool to touch, bluish in color. LYMPHATICS: No palpable cervical or supraclavicular adenopathy. NEUROLOGICAL: Awake and alert, mostly oriented. Difficult verbalization due to BiPAP mask. Voice very soft. Cooperative, Follows commands. Moves all 4 extremities. PSYCHIATRIC: Mild anxiety evident during conversation Diagnostic Tests Laboratory Laboratory Tests Test 01/31/17 01/31/17 01/31/17 01/31/17 05:10 05:14 06:05 09:00 White Blood Count 34.4 TH/MM3 (4.0-11.0) Red Blood Count 4.82 MIL/MM3 (4.50-5.90) Hemoglobin 14.0 GM/DL (13.0-17.0) Hematocrit 43.0 % (39.0-51.0) Mean Corpuscular Volume 89.1 FL (80.0-100.0) Mean Corpuscular Hemoglobin 29.0 PG (27.0-34.0) Mean Corpuscular Hemoglobin 32.5 % Concent (32.0-36.0) Red Cell Distribution Width 15.9 % (11.6-17.2) Platelet Count 148 TH/MM3 (150-450) Mean Platelet Volume 8.3 FL (7.0-11.0) Neutrophils (%) (Auto) 69.3 % (16.0-70.0) Lymphocytes (%) (Auto) 8.1 % (9.0-44.0) Monocytes (%) (Auto) 7.7 % (0.0-8.0) Eosinophils (%) (Auto) 14.5 % (0.0-4.0) Basophils (%) (Auto) 0.4 % (0.0-2.0) Neutrophils # (Auto) 23.8 TH/MM3 (1.8-7.7) Lymphocytes # (Auto) 2.8 TH/MM3 (1.0-4.8) Monocytes # (Auto) 2.6 TH/MM3 (0-0.9) Eosinophils # (Auto) 5.0 TH/MM3 (0-0.4) Basophils # (Auto) 0.1 TH/MM3 (0-0.2) CBC Comment AUTO DIFF Differential Total Cells 100 Counted Neutrophils % (Manual) 60 % (16-70) Band Neutrophils % 16 % (0-6) Lymphocytes % 6 % (9-44) Monocytes % 4 % (0-8) Eosinophils % 14 % (0-4) Neutrophils # (Manual) 26.1 TH/MM3 (1.8-7.7) Differential Comment FINAL DIFF MANUAL Toxic Vacuolation PRESENT (NONE SEEN) Dohle Bodies PRESENT (NONE SEEN) Platelet Estimate NORMAL (NORMAL) Platelet Morphology Comment NORMAL (NORMAL) Acanthocytes OCC (NORMAL) Prothrombin Time 11.5 SEC (9.8-11.6) Prothromb Time International 1.0 RATIO Ratio Activated Partial 25.4 SEC Thromboplast Time (24.3-30.1) Sodium Level 132 MEQ/L (136-145) Potassium Level 4.3 MEQ/L (3.5-5.1) Chloride Level 99 MEQ/L (98-107) Carbon Dioxide Level 24.9 MEQ/L (21.0-32.0) Anion Gap 8 MEQ/L (5-15) Blood Urea Nitrogen 17 MG/DL (7-18) Creatinine 0.93 MG/DL (0.60-1.30) Estimat Glomerular Filtration 78 ML/MIN (>89) Rate Random Glucose 116 MG/DL (74-106) Calcium Level 8.9 MG/DL (8.5-10.1) Total Bilirubin 0.4 MG/DL (0.2-1.0) Aspartate Amino Transf 15 U/L (15-37) (AST/SGOT) Alanine Aminotransferase 20 U/L (12-78) (ALT/SGPT) Alkaline Phosphatase 369 U/L (45-117) Total Creatine Kinase 64 U/L (39-308) Troponin I LESS THAN 0.02 NG/ML (0.02-0.05) B-Type Natriuretic Peptide 175 PG/ML (0-100) Total Protein 7.2 GM/DL (6.4-8.2) Albumin 3.0 GM/DL (3.4-5.0) Free Thyroxine 0.84 NG/DL (0.76-1.46) Thyroid Stimulating Hormone 23.900 uIU/ML 3rd Gen (0.358-3.740) Lactic Acid Level 2.8 mmol/L (0.4-2.0) Blood Gas Puncture Site LT RADIAL Blood Gas Patient Temperature 98.6 Blood Gas HCO3 21 mmol/L (22-26) Blood Gas Base Excess -2.7 mmol/L (-2-2) Blood Gas Oxygen Saturation 94 % (90-100) Arterial Blood pH 7.39 (7.380-7.420) Arterial Blood Partial 36 mmHg (38-42) Pressure CO2 Arterial Blood Partial 72 mmHG Pressure O2 (61-120) Arterial Blood Oxygen Content 15.3 Vol % (12.0-20.0) Arterial Blood 1.0 % (0-4) Carboxyhemoglobin Arterial Blood Methemoglobin 0.3 % (0-2) Blood Gas Hemoglobin 11.5 G/DL (12.0-16.0) Oxygen Delivery Device BIPAP Blood Gas Ventilator Setting IPAP=12 EPAP=6 Blood Gas Inspired Oxygen 35 % Nasal Screen MRSA (PCR) MRSA NOT DETECTED (NOT DETECT) Result Diagram: 01/31/17 0510 01/31/17 0510 Microbiology Microbiology Date/Time Procedure Status Source Growth 01/31/17 05:10 Aerobic Blood Culture Received Blood Peripheral Pending 01/31/17 05:10 Anaerobic Blood Culture Received Blood Peripheral Pending 01/31/17 05:35 Aerobic Blood Culture Received Blood Peripheral Pending 01/31/17 05:35 Anaerobic Blood Culture Received Blood Peripheral Pending Imaging Last Impressions Chest X-Ray 01/31/17 0508 Signed Impressions: Service Date/Time: Tuesday, January 31, 2017 05:12 - CONCLUSION: 1. Right-sided atelectasis versus pneumonia with large right effusion. The patient has known malignancy Aidan Razo MD CT Angiography 01/31/17 0000 Signed Impressions: Service Date/Time: Tuesday, January 31, 2017 07:34 - CONCLUSION: 1. No evidence for pulmonary embolism. 2. Masslike consolidation right apex and right perihilar region, is consistent with bronchogenic carcinoma. 3. Diffuse sclerotic metastasis. 4. There are metastatic lesions to the liver Jani Gilman MD Patient/Family Conference Present at Family Conference: , jennifer Guido Family Conference Time (mins): 30 Family Conference Location: Bedside Issues Discussed: Met with , daughter, patient at bedside approximately 30 minutes. Discussion Included the following: * Palliative care role, purpose, approach * Additional medical, psychosocial, history * Patients general health, functional status, leading up to the current hospitalization * Patient/family understanding of the current medical problems * Patient/family understanding of prognosis * Patients goals of care as best understood from advance directives and/or conversations and/or values * Current medical treatment options and benefits/burdens of those options * Likely scenarios comparing ongoing aggressive care with a transition to comfort measures only-very brief exploration of escalation of care versus transition to comfort focus * Review of legal decision maker based on directives or [place] statutes, family to provide copies of documentation * CODE STATUSfor now patient wishes to take it a data time he would proceed with intubation, full code though is open to ongoing discussions * Questions answered to the best of my ability * Palliative care contact information provided Met with patient and family at bedside. Patient with limited verbalization to BiPAP mask. For much of conversation he defers to his and daughter though he does participate. Family was not aware of new metastatic liver findings. They understand current conditions, potential complications, oncology consultation pending. For now patient wishes to continue current treatment course pursue aggressive treatments however once ongoing conversations as clinical course and potential options evolve. Assessment and Plan Disease Oriented Problem List: (1) Leukocytosis (2) Community acquired pneumonia (3) Acute respiratory failure with hypoxia (4) Lung malignancy (5) Atrial fibrillation, new onset Symptom Scale: (1) Dyspnea Pertinent Non-Medical Issues Psychosocial: Spiritual: Legal: Ethical issues impacting care: Important Contacts Spouse Keren Hoang [phone] daughter Lata Blow [phone] . Prognosis This patient was admitted for acute hypoxic respiratory failure. He has known history of COPD, as well as non-small cell lung cancer, diagnosed in 2013. He has completed chemotherapy, radiation. Appears to have new disease progression with liver metastasis, based on new imaging though I would defer to oncology for full prognosis relating to his disease progression (oncology consult pending ). He is currently being treated with BiPAP, antibiotics. Remains high-risk for further clinical deterioration, and complications. Code Status: Full Code Plan * Legal decision maker:Patient is currently able to participate in decision- making. Indicates has advanced directive or possible DPOA document naming his , jennifer Guido as secondary. Requested copies of this documentation. Jennifer Guido expresses concern that patient has had mental status deterioration, she suspects dementia process and patient does not remember information from one day to the other, she is concerned about the patient's ability to make informed decisions. * Goals: Patient for now wishes to take things one day at a time, as they come. Goals currently aggressive though he is open to ongoing discussions as clinical course evolves. Awaiting oncology input for further potential treatment options in decision-making. Patient requests that they do not want Dr. Benedict to be oncologist involved, information given to primary nurse. * CODE STATUS: Full code * SYMPTOMS: --Dyspnea-underlying COPD, lung cancer diagnosed 2014baseline shortness of breath, chronic cough. Presented for worsening shortness of breath. Now requiring BiPAP. Status post thoracentesis earlier today with 2500 mL removed. Patient endorses breathing a little better since then. High risk for further decline in intubation. --Malnutrition-poor appetite for the past couple weeks. Patient indicates had recently been put on an appetite stimulant which seem to be helping a little. For the most part though eating very small portions of a few meals a day. Per EMR weights appear relatively stable. --Anxiety-high risk for given pulmonary diagnoses; dyspnea. Did receive Versed for thoracentesis procedure. Currently breathing comfortably. No prns available. * Palliative care will continue to follow during hospital course as condition evolves, to assist patient/decision-maker with understanding of medical conditions, weighing benefits/burdens of treatment options, for clarification of goals of treatment. Additionally will assist with any symptoms of palliative concern Time Spent Total Floor Time (mins): 65 >50% Counseling/Coord of Care: Yes (d/w RN, Critical care) Thank you for the opportunity to participate in the care of Mr. Hoang. Attestation To help prompt me to consider important information that might be impacting today's encounter and assessment, information from prior notes written by myself or my colleagues may have been "brought forward" into today's note. My signature on this note, however, is an attestation that I personally performed the exam, history, and/or decision-making noted today, and, unless otherwise indicated, the interactions with patient, family, and staff as well as the review of records all occurred today. I also attest that the listed assessment and stated plan reflect my best clinical judgment today based on the combination of historical information, prior notes, and today's exam/ interactions. When time spent is documented, it refers only to time spent today by the signer, or if indicated, combined time spent today by collaborating physician/nurse practitioner. Reina Biggs January 31, 2017 13:45
[2017-01-31 14:14] LABS: TOTAL PROTEIN,PLEURAL FLUID 3.9 GM/DL
[2017-01-31 14:43] LABS: PLEURAL FLUID LYMPHS 55 %
[2017-01-31] MEDS ORDERED: SUCCINYLCHOLINE CHLORIDE 200 MG/10 ML VIAL ONE (17:15)
--- NOTE | 2017-01-31 17:31 | RADRPT ---
EXAM DATE/TIME: 01/31/2017 16:47 [facility] COMPARISON: CHEST SINGLE AP, January 31, 2017, 13:04. INDICATIONS : Post chest tube placement MEDICAL HISTORY : Chronic obstructive pulmonary disease. Lung Cancer. SURGICAL HISTORY : None. ENCOUNTER: Subsequent ACUITY: 1 day PAIN SCORE: Non-responsive. LOCATION: Right chest FINDINGS: There has been interval placement of a pigtail thoracostomy tube on the right. Resolution of pneumoth orax. There is persistent consolidation of the right lower lobe. Apical density and hilar retraction are unchanged. CONCLUSION: Interval right opacity tube placement with resolution of pneumothorax. Lon Butler MD on January 31, 2017 at 17:29 Board Certified Radiologist. This report was verified electronically.
[2017-01-31] MEDS: fentaNYL 2,500 MCG/NS 250 ML IV SCH (18:33)
[2017-01-31] MEDS ORDERED: SUCCINYLCHOLINE CHLORIDE 200 MG/10 ML VIAL IV PUSH ONE (19:00)
[2017-01-31] MEDS ORDERED: MIDAZOLAM HCL 5 MG/ML VIAL (1 ML) IV ONE (19:00)
--- NOTE | 2017-01-31 19:22 | PD.PROCEDR ---
Procedure Note Procedure Diagnostic and therapeutic thoracentesis Procedure Note Diagnosis: Right-sided pleural effusion Indications: Complete opacification of the right lung field with associated hypoxic respiratory failure Consent: Written consent was obtained Anesthesia: Versed 2 mill grams IV, lidocaine 1% local Description of the Procedure: The patient was placed in the supine position. The area was prepped and draped sterilely. 1% Lidcaine was infiltrated subcutaneously. The right side, in the fifth intercostal space midaxillary line , A small incision was made using a #11 blade. A 12g needle and angiocath were advanced under negative pressure aspiration until fluid was obtained. The catheter was advanced over the needle easily and without resistance. At the conclusion of the procedure, the catheter was removed and a dressing was applied. There were no immediate complications noted. There was minimal EBL. The patient tolerated the procedure well. Findings: 2300 cc of serous fluid removed. Patient tolerated the procedure well. Breathing more comfortably. Postprocedural chest x-rays been ordered. I personally performed the procedure. Brett Sofia MD January 31, 2017 19:22
--- NOTE | 2017-01-31 19:24 | PD.PROCEDR ---
Procedure Note Procedure Percutaneous Pigtail Tube Thoracostomy Procedure Note Right sided 10 Slovenian pigtail chest tube Diagnosis: Recurrent right-sided pleural effusion with worsening respiratory failure Indications: Worsening acute hypoxic respiratory failure despite thoracentesis drainage Consent: Verbal consent was obtained from the patient and his and daughter. Due to the urgent nature the procedure, written consent was not able to be obtained. Anesthesia: Versed 1 mg IV, lidocaine locally Description of the Procedure: The patient was placed in the supine position. The arm was abducted above the head and secured. The right lateral chest was prepped and draped sterilely to include the axilla and nipple. 1% Lidcaine was infiltrated subcutaneously and into the tissues down to the periosteum of the rib. The 5th intercostal space was identified. A small incision was made using a #11 blade. At the mid-axillary line, a 10 Fr pigtail catheter with stylet and pencil point trochar introducer were inserted superior to the adjacent rib and the pigtail catheter was advanced over the trochar in a modified Seldinger Technique, easily and without resistance. The catheter was connected to a Pleur-o-vac and connected to [id number] suction. The catheter was sutured to the skin using a 3-0 silk sandal suture and an occlusive dressing was applied. There were no immediate complications noted. There was minimal EBL. The patient tolerated the procedure well. A Chest x-ray has been ordered. I personally performed the procedure. Brett Sofia MD January 31, 2017 19:24
--- NOTE | 2017-01-31 19:25 | PD.PROCEDR ---
Procedure Note Procedure Endotracheal Intubation Diagnosis: Metastatic lung cancer Indications: Worsening acute hypoxic respiratory failure despite noninvasive positive pressure ventilation Consent: Verbal consent was obtained Anesthesia: Versed 5 mg IV, succinylcholine 100 mg IV Description of the Procedure: The patient was positioned in the sniffing position. Pre-oxygenation was performed using a BiPAP with 100% FiO2. A Tijerina #2 was used for laryngoscopy and a Grade I view was obtained. A 8.5 cuffed endotracheal tube was inserted atraumatically through the vocal cords. Confirmation of correct endotracheal tube placement was made by equal and bilateral breath sounds and colorimetric CO2 detection. The endotracheal tube was secured at 23 cm at the teeth. There were no immediate complications noted. The patient remained hemodynamically stable throughout the procedure. A chest x-ray has been ordered. I personally performed the procedure. Brett Sofia MD January 31, 2017 19:25
--- NOTE | 2017-01-31 19:30 | HHI.PR ---
Subjective Remarks Throughout the day and made frequent reevaluation's. Initially thoracentesis was pursued with 2300 mL's of serous fluid. At this point the patient had improved respiratory mechanics and felt better. Post procedure chest x-ray demonstrated right-sided pneumothorax with persistent collapse of the right lung , however I think that this is a long-standing lung collapse and may take time for her to reexpand. The patient came more agitated and asked for the BiPAP to be removed. When he removed the BiPAP, he became acutely dyspneic. BiPAP was placed back on, but the patient continued to be dyspneic. At this point had a very long discussion with the patient, his , his daughter bedside where we discussed the fact that he had metastatic lung cancer was likely going to from this. We also talked about the fact that if he was intubated, he may never be extubated and may with the ventilator. Despite all these things, the patient wanted to be intubated if necessary for restaurant failure. We then proceeded with a trial of pigtail chest tube to drain recurrent effusion, see separate procedure for details, which while if this was successful in draining a recurrent effusion and relieving the pneumothorax, it did not prevent or improve the respiratory failure. At this point we proceeded with intubation with mechanical ventilation, see separate procedure note for details. On my repeat evaluations, the patient remained very tachypneic in respiratory distress using accessory muscles. Persistently decreased breath sounds on the right. He required higher doses of phenylephrine with continued diltiazem drip for rate control for his A. fib RVR. Assessment: 81-year-old male with widely metastatic lung cancer and likely malignant pleural effusion causing associated complete right lung collapse and severe hypoxic respiratory failure and respiratory distress. He is critically ill now and has worsened clinically throughout the day. Active problems: Acute hypoxic respiratory failure Widely metastatic stage IV lung cancer Recurrent pleural effusion causing respiratory failure Complete collapse of the right lung field Atrial fibrillation with rapid ventricular response Shock, likely distributive, probably septic Plan: Proceed with intubation Right-sided chest tube to suction Wean FiO2 for goal SPO2 greater than 90% Continue to follow up medical oncology's recommendation Agree with palliative care consult and we'll await their recommendations Continue to talk with family. I do not see this getting better, and I do not think the patient will survive this hospitalization, the patient still wants aggressive care at this time Continue Cardizem drip for A. fib RVR Continue phenylephrine drip. I do not think that he requires central venous access at this time and I would like to avoid it if possible given his age, comorbidities, and I think the risk benefit ratio at this point outweighs placing another invasive line. This patient remains critically ill with one or more organ systems which are or may become a threat to life. I have spent in excess of 52 minutes discontinuously in the care and management of this patient. This time is exclusive of procedures, and includes, but is not limited to, evaluation of the patient, review of the medical record, discussions with family, consultants, nursing staff, or respiratory therapy, and documentation in the medical record. Brett Sofia MD January 31, 2017 19:30
--- NOTE | 2017-01-31 19:58 | RADRPT ---
EXAM DATE/TIME: 01/31/2017 19:30 [facility] COMPARISON: CT PULMONARY ANGIOGRAM, January 31, 2017, 7:34. INDICATIONS : Post intubation. MEDICAL HISTORY : Chronic obstructive pulmonary disease. Carcinoma, lung. SURGICAL HISTORY : None. ENCOUNTER: Subsequent ACUITY: 1 day PAIN SCORE: Non-responsive. LOCATION: Bilateral chest FINDINGS: Patient is now intubated. The christina is very difficult to visualize. The tip of the endotracheal tube is probably around a centimeter away from it. Pulling the endotracheal tube back a centimeter or 2 w ould probably be prudent. Small caliber right chest tube remains in place. I don't see a pneumothorax. Large amount of consolid ation with effusion and volume loss again noted on the right. 7 mm left upper lobe nodule again noted. No left infiltrate. CONCLUSION: Endotracheal tube position as above and suggest pulling the tube back a centimeter or 2. Lon Zhang MD on January 31, 2017 at 19:54 Board Certified Radiologist. This report was verified electronically.
--- NOTE | 2017-01-31 21:00 | EC ---
Study Study Date:01/31/2017 STUDY CONCLUSIONS SUMMARY - Left ventricle: The cavity size was normal. Wall thickness was normal. Systolic function was normal. The estimated ejection fraction was 60%. Wall motion was normal; there were no regional wall motion abnormalities. - Pericardium, extracardiac: There wassmall pericardial effusion. If LV function is below 40, please consider prescribing an ACEI or ARB or document rationale for non-use. PROCEDURE DATA STUDY STATUS: Elective. Procedure: Transthoracic echocardiography. Image quality was good. Scanning was performed from the parasternal, apical, and subcostal acoustic windows. Study completion: The patient tolerated the procedure well. Transthoracic echocardiography. M-mode, complete 2D, complete spectral Doppler, and color Doppler. Height: Height: 69in. Weight: Weight: 111.8lb. Body mass index: BMI: 16.5kg/m^2. Body surface area: BSA: 1.61m^2. Patient status: Inpatient. CARDIAC ANATOMY LEFT VENTRICLE: The cavity size was normal. Wall thickness was normal. Systolic function was normal. The estimated ejection fraction was 60%. Wall motion was normal; there were no regional wall motion abnormalities. AORTIC VALVE: Trileaflet; normal thickness leaflets. Doppler: Transvalvular velocity was within the normal range. There was no stenosis. No regurgitation. AORTA: Aortic root: The aortic root was normal in size. MITRAL VALVE: Structurally normal valve. Doppler: Transvalvular velocity was within the normal range. There was no evidence for stenosis. No regurgitation. Valve area by pressure half-time: 3.67cm^2. Indexed valve area by pressure half-time: 2.28cm^2/m^2. Peak gradient: 2mm Hg (D). LEFT ATRIUM: The atrium was normal in size. RIGHT VENTRICLE: The cavity size was normal. Wall thickness was normal. PULMONIC VALVE: Doppler: Transvalvular velocity was within the normal range. There was no evidence for stenosis. No regurgitation. TRICUSPID VALVE: Structurally normal valve. Doppler: Transvalvular velocity was within the normal range. No regurgitation. PULMONARY ARTERY: The main pulmonary artery was normal-sized. Systolic pressure was within the normal range. RIGHT ATRIUM: The atrium was normal in size. PERICARDIUM: There wassmall pericardial effusion. SYSTEMIC VEINS: Inferior vena cava: The vessel was normal in size. Patient weight: 111.8lb _Ejection fraction:_ 65-75% _Fractional shortening:_ 32% up to 5Kg 5-11.5Kg 11.6-22.9Kg 23-45Kg 45-57Kg Aortic Root 7-13 <17 13-22 17-27 17-27 LA diam 6-13 <23 24-38 33-47 37-40 RVID 10-17 7-15 7-15 7-18 8-17 LVIDd 12-22 <32 24-38 33-47 37-40 LVPW 2-4 3-6 5-7 6-8 7-8 IVS 2-4 3-6 5-7 6-8 7-8 BASIC MEASUREMENTS ADULT NORMAL Left ventricle LV internal dimension, ED 45.7 mm 37-56 LV internal dimension, ES 56.5 mm Fractional shortening *24 % 29-45 LV posterior wall, ED 9.86 mm 6-11 Septal/posterior wall ratio, ED 0.86 Relative wall thickness, ED 0.43 <0.45 Volume, ED, Teichholz 95.9 ml Volume, ES, Teichholz 35 ml Ejection fraction, Teichholz *63.5 % 64-83 Stroke volume, Teichholz 60.9 ml Volume index, ED, Teichholz 60 ml/m^2 Volume index, ES, Teichholz 22 ml/m^2 Stroke index, Teichholz 37.8 ml/m^2 Wall mass 140 g Wall mass index 87 g/m^2 Mass/height 0.8 g/cm Ventricular septum Septal thickness, ED 8.51 mm Right ventricle RV internal dimension, ED 18.4 mm DOPPLER MEASUREMENTS ADULT NORMAL Mitral valve Peak E-wave velocity 76 cm/s Peak A-wave velocity 69.1 cm/s Pressure half-time 60 ms Peak gradient, D 2 mm Hg Peak E/A ratio 1.1 Valve area, pressure half-time 3.67 cm^2 Valve area index, pressure half-time 2.28 cm^2/m^2 LEGEND: Mean values are shown as u=mean value. Asterisk (*) alfaro values outside specified normal range. Prepared and signed by Aydee Inman [id number]
[2017-01-31] MEDS ORDERED: PHENYLEPHRINE HCL 10 MG/ML VIAL ONE (21:24)
[2017-01-31] MEDS: VASOPRESSIN INJ 40 UNITS in DEXTROSE 5% IN WATER 100ML INJ 98 ML IV SCH ×2 (21:36)
--- NOTE | 2017-01-31 22:44 | EKG ---
Date Performed: 01/31/2017 Time Performed: 05:13:26 PTAGE: 81 years EKG: ATRIAL FIBRILLATION WITH RAPID VENTRICULAR RESPONSE POSSIBLE RIGHT VENTRICULAR CONDUCTION D JORGE ALBERTO MODERATE ST DEPRESSION ABNORMAL ECG NO PREVIOUS TRACING DOCTOR: Koko Hoffman Interpretating Date/Time 01/31/2017 22:43:16
[2017-02-01] VITALS (19 sets, daily range): BP systolic 61–143; BP diastolic 12–59; PULSE 59–135; RESP 14–16; TEMP 97.1–98.4; O2SAT 100
[2017-02-01] MEDS: PHENYLEPHRINE INJ 40 MG in DEXTROSE 5% IN WATE 500 ML INJ 496 ML IV SCH ×6 (01:40→09:01)
[2017-02-01] MEDS: CHLORHEXIDINE GLUCONATE 2 % 1 PACK (2 CLOTHS) TOP SCH (04:00)
[2017-02-01] MEDS: CHLORHEXIDINE GLUCONATE 2 % 1 PACK (2 CLOTHS)(taper/protocol) TOPICAL SCH (04:00)
[2017-02-01] MEDS: RESP: ALBUTEROL 2.5 MG/IPRATROPIUM 0.5 MG NEB (SCH) INH ×5 (04:05→19:52)
[2017-02-01] MEDS ORDERED: MIDAZOLAM HCL 5 MG/ML VIAL (1 ML) ONE (04:54)
[2017-02-01] MEDS: AZITHROMYCIN INJ 500 MG in SODIUM CHLOR 0.9% 250 ML INJ 250 ML IV SCH (05:00)
[2017-02-01] MEDS ORDERED: MIDAZOLAM HCL 2 MG/2 ML VIAL IV PUSH ONE (05:15)
--- NOTE | 2017-02-01 05:27 | RADRPT ---
EXAM DATE/TIME: 02/01/2017 03:42 [facility] COMPARISON: CHEST SINGLE AP, January 31, 2017, 19:30. INDICATIONS : Respiratory distress. MEDICAL HISTORY : Chronic obstructive pulmonary disease. Carcinoma, lung. SURGICAL HISTORY : None. ENCOUNTER: Subsequent ACUITY: 2 days PAIN SCORE: Non-responsive. LOCATION: Bilateral chest FINDINGS: HeSupport lines and tubes are in satisfactory position. There is diffuse right-sided opacity with rig ht chest tube with no evidence of pneumothorax. The left lung is free of acute parenchymal opacity. T he nodule left upper lobe is unchanged. CONCLUSION: 1. Extensive right-sided opacity and volume loss.. There is no evidence of pneumothorax. 2. There has been no significant change when compared to the prior exam. Aidan Razo MD on February 01, 2017 at 5:25 Board Certified Radiologist. This report was verified electronically.
--- NOTE | 2017-02-01 05:33 | RADRPT ---
EXAM DATE/TIME: 02/01/2017 05:01 [facility] COMPARISON: CHEST SINGLE AP, February 01, 2017, 3:42. INDICATIONS : Central line placement. MEDICAL HISTORY : None. SURGICAL HISTORY : None. ENCOUNTER: Initial ACUITY: 1 day PAIN SCORE: 0/10 LOCATION: Bilateral chest FINDINGS: Support lines and tubes are in satisfactory position. There is extensive right-sided opacity and volu me loss. There is no evidence of pneumothorax. The left lung is free of acute parenchymal opacity. A right sided subclavian right vein catheter is in place without pneumothorax with its tip in the supe rior vena cava. CONCLUSION: 1. Uncomplicated line placement. No evidence of pneumothorax. Aidan Razo MD on February 01, 2017 at 5:31 Board Certified Radiologist. This report was verified electronically.
[2017-02-01 05:46] LABS: BLOOD GAS HCO3 18 mmol/L (22-26); BLOOD GAS O2 HGB SATURATION 97 % (90-100); BLOOD GAS OXYGEN CONTENT 15.1 Vol % (12.0-20.0); BLOOD GAS PCO2 55 mmHg (38-42); BLOOD GAS PO2 156 mmHg (61-120); BLOOD GAS TOTAL HGB 10.8 G/DL (12.0-16.0); TEMP CORR TO 98.6
[2017-02-01 05:48] LABS: CRITICAL VALUE YES; OXYGEN DEVICE VENTILATOR
[2017-02-01 05:49] LABS: DRAW SITE LT RADIAL; FIO2 60 %; NUMBER OF ARTERIAL PUNCTURES 1; STAT NO; ULNAR PULSE PRESENT; VENT SETTINGS PRVC/AC
--- NOTE | 2017-02-01 05:55 | PD.PROCEDR ---
Procedure Note Procedure Central line placement Indication: Overnight patient's clinical condition significantly deteriorated requiring vasopressors infusion. For administration of vasopressors the center line IV access is required. There was no family available and the patient is not in condition or capacity to provide consent. This was true medical emergency in the life-threatening situation and emergent central line was placed. A time-out was completed verifying correct patient, procedure, site, positioning , and special equipment if applicable. The patient was placed in a dependent position appropriate for central line placement based on the vein to be cannulated. The patients right shoulder was prepped and draped in sterile fashion. 1% Lidocaine was used to anesthetize the surrounding skin area. A triple lumen 9-Divehi Cordis catheter was introduced into the the right subclavian vein using the Seldinger technique. The catheter was threaded smoothly over the guide wire and appropriate blood return was obtained. Each lumen of the catheter was evacuated of air and flushed with sterile saline. The catheter was then sutured in place to the skin and a sterile dressing applied. Perfusion to the extremity distal to the point of catheter insertion was checked and found to be adequate. Estimated Blood Loss: 1ml The patient tolerated the procedure well and there were no complications. Jules Alvarez MD February 01, 2017 05:54
[2017-02-01] MEDS: CEFEPIME INJ 2,000 MG in SODIUM CHLORIDE 0.9% INJ 100 ML IV SCH ×3 (06:01→20:31)
[2017-02-01 06:05] LABS: HEMATOCRIT 33.8 % (39.0-51.0); MEAN CORPUSCULAR HEMOGLOBIN 28.4 PG (27.0-34.0); MEAN CORPUSCULAR HGB CONC 31.5 % (32.0-36.0); PLATELET COUNT 119 TH/MM3 (150-450); RED BLOOD COUNT 3.76 MIL/MM3 (4.50-5.90); REVIEW FLAG FINAL; WHITE BLOOD COUNT 25.8 TH/MM3 (4.0-11.0)
[2017-02-01 06:32] LABS: BICARBONATE 21.3 MEQ/L (21.0-32.0)
[2017-02-01 06:54] LABS: CALCIUM-PROTEIN CORRECTED 8.5 MG/DL (8.5-10.1)
[2017-02-01 07:48] LABS: BLOOD GAS BASE EXCESS -6.3 mmol/L (-2-2); BLOOD GAS HCO3 19 mmol/L (22-26); BLOOD GAS PCO2 41 mmHg (38-42); BLOOD GAS PO2 176 mmHg (61-120)
[2017-02-01 07:49] LABS: BLOOD GAS METHEMOGLOBIN 1.1 % (0-2); BLOOD GAS O2 HGB SATURATION 97 % (90-100); BLOOD GAS OXYGEN CONTENT 17.2 Vol % (12.0-20.0); BLOOD GAS TOTAL HGB 12.4 G/DL (12.0-16.0); CRITICAL VALUE YES
--- NOTE | 2017-02-01 08:36 | MB ---
cc: KASSI CAMPBELL M.D., ALEXANDER S. MD DATE OF CONSULTATION: 02/01/[address] Brett Sofia REASON FOR CONSULTATION Oncology was consulted to render an opinion regarding patient with history of lung cancer admitted with respiratory failure. HISTORY OF PRESENT ILLNESS Mr. Hoang is an 81-year-old male with history of non-small cell lung cancer treated with radiation and chemotherapy completed in October 2014. He did not follow-up with the oncology clinic for about a year. He presented to the hospital with complaint of increased shortness of breath and sputum production for several weeks. He also noted increased weakness and fatigue. When he arrived in the emergency room he was noted to be hypoxemic and was started on BiPAP. He was also found to have new onset atrial fibrillation with rapid ventricular rate. He was subsequently noted to have complete opacification of the right lung with mediastinal shift. He had a thoracentesis at the bedside with removal of 2300 cc of serous fluid yesterday. He developed worsening respiratory distress and was intubated. There is no family at the bedside. The history is obtained from his chart and talking to the nursing staff. Currently the patient is on sedation as well as pressors. PAST MEDICAL HISTORY 1. Non-small cell lung cancer. 2. Chronic obstructive pulmonary disease. 3. Hyperlipidemia. PAST SURGICAL HISTORY 1. Right inguinal hernia repair. 2. Right hip surgery. 3. Right knee surgery. 4. Tonsillectomy. FAMILY HISTORY He has three daughters, all healthy. SOCIAL HISTORY 35-pucw-ycin smoking history, quit about 25 years ago. He drinks occasionally. ALLERGIES No known drug allergies. MEDICATIONS Current medications: 1. Azithromycin. 2. Cefepime. 3. Protonix. 4. Jacinda-Colace. 5. DuoNeb. 6. Lovenox. 7. Diltiazem. 8. Pressors. REVIEW OF SYSTEMS Not obtainable. PHYSICAL EXAMINATION VITAL SIGNS: Temperature 97.1, blood pressure 81/53. He is on a ventilator with a 60% FIO2. HEENT: Atraumatic. Pupils equal, round and reactive to light. ET tube in place. No bleeding noted. NECK: No thyromegaly. LYMPHATIC: No palpable cervical, clavicular, axillary or inguinal lymph nodes. CARDIOVASCULAR: Irregularly irregular, S1, S2. LUNGS: Decreased breath sounds on the right side. ABDOMEN: Soft. Positive bowel sounds. I could not palpate the liver or spleen. EXTREMITIES: Positive cyanosis of toes and cool to touch. No significant edema. SKIN: No rash or petechia. NEUROLOGIC: He is sedated. LABORATORY DATA Reviewed. ASSESSMENT 1. Non-small cell lung carcinoma, now appears to have metastatic disease. He first presented in January 2014 with a lung mass in the right upper lobe. Biopsy showed atypical cells suspicious for non-small cell lung carcinoma. He received stereotactic radiation to the lung mass. He later developed new mediastinal adenopathy and was treated with radiation with concurrent chemotherapy followed by consolidation chemotherapy which he completed in October 2014. He had a good response. He was supposed to follow-up in the oncology clinic after he came back from [place] last Fall, but he did not make the appointment. He now presents in respiratory failure. CT angiogram did not show any pulmonary embolism; however, there is mass-like consolidation at the right apex and right perihilar region consistent with recurrent bronchogenic carcinoma. There is diffuse bone lesion in the ribs and thoracic spine. There are also metastatic lesions in the liver. This is most consistent with metastatic lung cancer. His prognosis is very poor. He had received full radiation to the thorax and I do not think he could receive anymore radiation to the chest. Treatment will be palliative in nature. However, he is currently on the ventilator and he is not a candidate for palliative chemotherapy. Palliative Care has been consulted. Will try to discuss with the patient's family. I think the chance of him getting off the ventilator is small. I would recommend hospice care. The patient had thoracentesis yesterday and fluid cytology is pending. 2. Respiratory failure due to progression of lung cancer as above. 3. Leukocytosis consistent with leukemoid reaction. 4. Anemia and thrombocytopenia possibly due to his acute illness and marrow suppression. He may also have a consumptive process like DIC. 5. Atrial fibrillation with rapid ventricular rate. 6. Sepsis, currently on antibiotics. RECOMMENDATIONS 1. The patient has now developed metastatic cancer and he is not a candidate for palliative chemotherapy at this time. I would recommend considering hospice care. Will try to discuss with the family. 2. Await cytology result from the pleural fluid. Thank you Dr. Sofia for asking me to see this patient. MD SORAYA Peters/MADHURI /7:59 AM /8:20 AM [id number]
[2017-02-01] MEDS: fentaNYL 2,500 MCG/NS 250 ML IV SCH (09:06)
[2017-02-01] MEDS: ENOXAPARIN SODIUM 40 MG/0.4 ML SYRINGE SQ SCH (09:06)
[2017-02-01] MEDS: DOCUSATE SODIUM 50 MG/SENNA 8.6 MG TAB PO SCH ×2 (09:07→20:32)
[2017-02-01] MEDS: PANTOPRAZOLE SODIUM 40 MG VIAL IV SCH (09:07)
[2017-02-01] MEDS: NOREPINEPHRINE 4 MG/D5W 250 ML IV SCH ×3 (09:52→20:59)
--- NOTE | 2017-02-01 11:25 | HHI.HCPN ---
Reason for visit a. To assist with evaluation and management of symptoms including: dyspnea, anxiety, malnutrition b. To assist medical decision maker(s) with: better understanding of current medical conditions; weighing benefits/burdens of medical treatment options; making medical treatment decisions. Subjective/Interval History Pt seen today to follow up on comfort, goals. Pt s/p thoracentesis, later Percutaneous Pigtail Tube Thoracostomy by instructional systems designer. Was on bipap yesterday. Worsening resp failure despite interventions, intubated around 7pm yesterday evening.has remained on Cardizem drip for A. fib RVR, also on phenylephrine drip for hypotension. Oncology has evaluated (Dr Benedict) no chemotherapy options for metastatic disease process; recommends hospice. Does not appear any family was present at time of his visit. WBC cont to be elevated 25, down from 35 yesterday. + mech vent A/c, fio2 45%. Nursing informs that patient was quite agitated and combative yesterday during procedures. Patient appears to be repetitive, forgetful to nursing asked the same questions despite multiple updates from staff. Patient seen in room , dual visit with Radha FLANAGNA. , dtr Lata at bedside. is tearful. Pt sedated, on mech vent, non responsive to exam. Sedated on fentanyl 100 mics/hour. On vasopressin 0.01 units/hour. Also on Levophed 200 mics/minute. No apparent distress, breathing comfortably on mechanical vent. Course breath sounds. Following exam met with and daughter. . Family/friend interactions Met with and daughter in conference room. Explore with them yesterday's clinical course, intubation, and patient current condition. is tearful she asks me "I know he is not going to come home from this is he ". Gently explore his critical condition, life support measures in place. She is very tearful endorses that she does not want him to suffer, and that they had in the past had conversations and that he would not want heroic measures. is repetitive she asks us multiple times if the patient can hear us, she also asked multiple times why he is so cold. We have reviewed conditions thoroughly she does appear forgetful and repetitive, though at times seems to grasp some things as she is tearful and indicates that she knows he is not going to come home, and that she always knew he would but did not expect he would this soon. Explore further with daughter legal decision maker hierarchy, concerns regarding spouse forgetfulness, does not appear she is able to make fully informed decisions, and then decision-making would fall to the majority of the patient's 3 adult children as per [place] statutes. She has not been able to obtain copies of POA documentation. Other daughter is planning to travel to [place] in the next day, as well as an uncle who remains very close and supportive of family. Contact information for the third daughter is currently not known, daughter when the informs that she has been estranged, with no contact with the family for many years, the uncle may have contact information they are going to try to obtain this. Review that decision-making would fall to the majority of the 3 siblings will need to attempt to try to contact the third daughter. Priority to address would be CODE STATUS however need to obtain the second daughter's contact information to include her in this discussion; will try to address this later this afternoon. Otherwise plan for follow-up family meeting with uncle, and 3 daughters if possible tomorrow 02/02/17. . Advance Directives Living Will: Completed, but not made available Health Care Surrogate: Completed, but not made available Durable Power of Fire Dispatcher: Completed, but not made available Objective Vital Signs Date Time Temp Pulse Resp B/P Pulse Ox O2 Delivery O2 Flow Rate FiO2 02/01/17 10:30 84 129/12 02/01/17 08:21 100 45 02/01/17 06:00 64 02/01/17 04:05 100 60 02/01/17 04:00 60 02/01/17 04:00 97.1 67 14 81/53 100 02/01/17 04:00 67 02/01/17 02:00 59 02/01/17 01:12 100 60 02/01/17 00:00 97.1 59 14 78/51 100 02/01/17 00:00 60 02/01/17 00:00 59 01/31/17 22:00 53 01/31/17 20:17 100 60 01/31/17 20:00 98.1 53 14 75/47 100 01/31/17 20:00 53 01/31/17 20:00 60 01/31/17 18:00 80 01/31/17 18:00 80 01/31/17 16:00 84 01/31/17 16:00 98.3 84 42 130/76 93 01/31/17 14:00 71 01/31/17 12:29 95 35 01/31/17 12:00 71 01/31/17 12:00 98.4 71 20 111/55 100 Intake & Output 02/01/17 02/01/17 07:00 19:00 Intake Total 5313 ml Output Total 1850 ml Balance 3463 ml Intake Oral 0 ml IV Total 5313 ml Tube Feeding 0 ml Output Urine Total 750 ml Chest Tube Drainage Total 1100 ml Physical Exam CONSTITUTIONAL/GENERAL: This is a thin, chronically ill-appearing patient. sedated on mech vent TUBES/LINES/DRAINS: Peripheral IVs bilateral upper extremities, RT SC Central line, radial arterial line, ETT, OGT SKIN: No jaundice, rashes. Several scattered ecchymoses on bilat upper extremities. Skin temperature cool to distal extremities. CARDIOVASCULAR: Irregular rate and rhythm, atrial fib via bedside monitor. Difficult to auscultate over noisy breath sounds. Unable to palpate pedal pulses, feet cold/blue, RESPIRATORY/CHEST: Symmetric, unlabored resp on mech vent. Coarse air movement throughout, decreased air to basis. +rt upper small chest tube to pleurevac @ bedside. GASTROINTESTINAL: Abdomen soft,flat, nondistended. No palpable masses. No guarding. Bowel sounds hypoactive. OGT clamped NEUROLOGICAL: sedated on mech vent, non responsive to exam. PSYCHIATRIC: sedated, appearing comfortable. . Diagnostic Tests Laboratory Laboratory Tests Test 01/31/17 01/31/17 01/31/17 01/31/17 05:10 05:14 06:05 06:11 White Blood Count 34.4 TH/MM3 (4.0-11.0) Red Blood Count 4.82 MIL/MM3 (4.50-5.90) Hemoglobin 14.0 GM/DL (13.0-17.0) Hematocrit 43.0 % (39.0-51.0) Mean Corpuscular Volume 89.1 FL (80.0-100.0) Mean Corpuscular Hemoglobin 29.0 PG (27.0-34.0) Mean Corpuscular Hemoglobin 32.5 % Concent (32.0-36.0) Red Cell Distribution Width 15.9 % (11.6-17.2) Platelet Count 148 TH/MM3 (150-450) Mean Platelet Volume 8.3 FL (7.0-11.0) Neutrophils (%) (Auto) 69.3 % (16.0-70.0) Lymphocytes (%) (Auto) 8.1 % (9.0-44.0) Monocytes (%) (Auto) 7.7 % (0.0-8.0) Eosinophils (%) (Auto) 14.5 % (0.0-4.0) Basophils (%) (Auto) 0.4 % (0.0-2.0) Neutrophils # (Auto) 23.8 TH/MM3 (1.8-7.7) Lymphocytes # (Auto) 2.8 TH/MM3 (1.0-4.8) Monocytes # (Auto) 2.6 TH/MM3 (0-0.9) Eosinophils # (Auto) 5.0 TH/MM3 (0-0.4) Basophils # (Auto) 0.1 TH/MM3 (0-0.2) CBC Comment AUTO DIFF Differential Total Cells 100 Counted Neutrophils % (Manual) 60 % (16-70) Band Neutrophils % 16 % (0-6) Lymphocytes % 6 % (9-44) Monocytes % 4 % (0-8) Eosinophils % 14 % (0-4) Neutrophils # (Manual) 26.1 TH/MM3 (1.8-7.7) Differential Comment FINAL DIFF MANUAL Toxic Vacuolation PRESENT (NONE SEEN) Dohle Bodies PRESENT (NONE SEEN) Platelet Estimate NORMAL (NORMAL) Platelet Morphology Comment NORMAL (NORMAL) Acanthocytes OCC (NORMAL) Prothrombin Time 11.5 SEC (9.8-11.6) Prothromb Time International 1.0 RATIO Ratio Activated Partial 25.4 SEC Thromboplast Time (24.3-30.1) Sodium Level 132 MEQ/L (136-145) Potassium Level 4.3 MEQ/L (3.5-5.1) Chloride Level 99 MEQ/L (98-107) Carbon Dioxide Level 24.9 MEQ/L (21.0-32.0) Anion Gap 8 MEQ/L (5-15) Blood Urea Nitrogen 17 MG/DL (7-18) Creatinine 0.93 MG/DL (0.60-1.30) Estimat Glomerular Filtration 78 ML/MIN (>89) Rate Random Glucose 116 MG/DL (74-106) Calcium Level 8.9 MG/DL (8.5-10.1) Total Bilirubin 0.4 MG/DL (0.2-1.0) Aspartate Amino Transf 15 U/L (15-37) (AST/SGOT) Alanine Aminotransferase 20 U/L (12-78) (ALT/SGPT) Alkaline Phosphatase 369 U/L (45-117) Total Creatine Kinase 64 U/L (39-308) Troponin I LESS THAN 0.02 NG/ML (0.02-0.05) B-Type Natriuretic Peptide 175 PG/ML (0-100) Total Protein 7.2 GM/DL (6.4-8.2) Albumin 3.0 GM/DL (3.4-5.0) Free Thyroxine 0.84 NG/DL (0.76-1.46) Thyroid Stimulating Hormone 23.900 uIU/ML 3rd Gen (0.358-3.740) Lactic Acid Level 2.8 mmol/L (0.4-2.0) Blood Gas Puncture Site LT RADIAL Blood Gas Patient Temperature 98.6 Blood Gas HCO3 21 mmol/L 19 mmol/L (22-26) (22-26) Blood Gas Base Excess -2.7 mmol/L -6.3 mmol/L (-2-2) (-2-2) Blood Gas Oxygen Saturation 94 % (90-100) 97 % (90-100) Arterial Blood pH 7.39 7.29 (7.380-7.420) (7.380-7.420) Arterial Blood Partial 36 mmHg (38-42) 41 mmHg (38-42) Pressure CO2 Arterial Blood Partial 72 mmHG 176 mmHg Pressure O2 (61-120) (61-120) Arterial Blood Oxygen Content 15.3 Vol % 17.2 Vol % (12.0-20.0) (12.0-20.0) Arterial Blood 1.0 % (0-4) 1.0 % (0-4) Carboxyhemoglobin Arterial Blood Methemoglobin 0.3 % (0-2) 1.1 % (0-2) Blood Gas Hemoglobin 11.5 G/DL 12.4 G/DL (12.0-16.0) (12.0-16.0) Oxygen Delivery Device BIPAP Blood Gas Ventilator Setting IPAP=12 EPAP=6 Blood Gas Inspired Oxygen 35 % Test 01/31/17 01/31/17 01/31/17 01/31/17 09:00 12:45 15:30 20:45 Nasal Screen MRSA (PCR) MRSA NOT DETECTED (NOT DETECT) Pleural Fluid pH 8.0 Pleural Fluid WBC 84 /MM3 (0-10) Pleural Fluid RBC 8 /MM3 (0-0) Pleural Fluid Neutrophils 8 % Pleural Fluid Lymphocytes 55 % Pleural Fluid Monocytes 12 % Pleural Fluid Eosinophils 12 % Pleural Fluid Histiocytes 5 % Pleural Fluid Mesothelial 8 % Cells Pleural Fluid Total Protein 3.9 GM/DL Pleural Fluid LDH 72 U/L Pleural Fluid Glucose 98 MG/DL Pleural Fluid Amylase 385 U/L Lactic Acid Level 2.1 mmol/L (0.4-2.0) Troponin I 0.02 NG/ML 0.02 NG/ML (0.02-0.05) (0.02-0.05) Test 02/01/17 02/01/17 05:10 05:35 White Blood Count 25.8 TH/MM3 (4.0-11.0) Red Blood Count 3.76 MIL/MM3 (4.50-5.90) Hemoglobin 10.7 GM/DL (13.0-17.0) Hematocrit 33.8 % (39.0-51.0) Mean Corpuscular Volume 90.0 FL (80.0-100.0) Mean Corpuscular Hemoglobin 28.4 PG (27.0-34.0) Mean Corpuscular Hemoglobin 31.5 % Concent (32.0-36.0) Red Cell Distribution Width 16.0 % (11.6-17.2) Platelet Count 119 TH/MM3 (150-450) Mean Platelet Volume 8.5 FL (7.0-11.0) Sodium Level 128 MEQ/L (136-145) Potassium Level 4.0 MEQ/L (3.5-5.1) Chloride Level 99 MEQ/L (98-107) Carbon Dioxide Level 21.3 MEQ/L (21.0-32.0) Anion Gap 8 MEQ/L (5-15) Blood Urea Nitrogen 16 MG/DL (7-18) Creatinine 0.88 MG/DL (0.60-1.30) Estimat Glomerular Filtration 83 ML/MIN (>89) Rate Random Glucose 181 MG/DL (74-106) Calcium Level 7.1 MG/DL (8.5-10.1) Protein Corrected Calcium 8.5 MG/DL (8.5-10.1) Troponin I 0.03 NG/ML (0.02-0.05) Total Protein 4.6 GM/DL (6.4-8.2) Blood Gas Puncture Site LT RADIAL Blood Gas Patient Temperature 98.6 Blood Gas HCO3 18 mmol/L (22-26) Blood Gas Base Excess -10.0 mmol/L (-2-2) Blood Gas Oxygen Saturation 97 % (90-100) Arterial Blood pH 7.13 (7.380-7.420) Arterial Blood Partial 55 mmHg (38-42) Pressure CO2 Arterial Blood Partial 156 mmHg Pressure O2 (61-120) Arterial Blood Oxygen Content 15.1 Vol % (12.0-20.0) Arterial Blood 1.0 % (0-4) Carboxyhemoglobin Arterial Blood Methemoglobin 1.0 % (0-2) Blood Gas Hemoglobin 10.8 G/DL (12.0-16.0) Oxygen Delivery Device VENTILATOR Blood Gas Ventilator Setting PRVC/AC Blood Gas Inspired Oxygen 60 % Result Diagram: 02/01/17 0510 02/01/17 0510 Microbiology Microbiology Date/Time Procedure Status Source Growth 01/31/17 05:10 Aerobic Blood Culture Received Blood Peripheral Pending 01/31/17 05:10 Anaerobic Blood Culture Received Blood Peripheral Pending 01/31/17 05:35 Aerobic Blood Culture Received Blood Peripheral Pending 01/31/17 05:35 Anaerobic Blood Culture Received Blood Peripheral Pending 01/31/17 12:45 Gram Stain - Final Resulted Fluid Pleural Fluid 01/31/17 12:45 Body Fluid Culture Resulted Fluid Pleural Fluid Pending 01/31/17 12:45 Acid Fast Stain - Final Resulted Fluid Pleural Fluid NO ACID FAST BACILLI SEEN 01/31/17 12:45 Mycobacterial Culture Resulted Fluid Pleural Fluid Pending 01/31/17 12:45 Fungal Smear - Final Resulted Fluid Pleural Fluid NO FUNGAL ELEMENTS SEEN. 01/31/17 12:45 Fungal Culture Resulted Fluid Pleural Fluid Pending 01/31/17 18:00 Legionella Antigen - Final Complete Urine Catheterized Urine PRESUMPTIVE NEGATIVE FOR LEGIONELLA P... 01/31/17 18:00 Streptococcus pneumoniae Antigen (M - Final Complete Urine Catheterized Urine PRESUMPTIVE NEGATIVE FOR STREPTOCOCCU... 02/01/17 02:40 Gram Stain - Final Resulted Sputum Endotracheal 02/01/17 02:40 Sputum Culture Resulted Sputum Endotracheal Pending Imaging Last Impressions Chest X-Ray 02/01/17 0600 Signed Impressions: Service Date/Time: Wednesday, February 01, 2017 03:42 - CONCLUSION: 1. Extensive right-sided opacity and volume loss.. There is no evidence of pneumothorax. 2. There has been no significant change when compared to the prior exam. Aidan Razo MD CT Angiography 01/31/17 0000 Signed Impressions: Service Date/Time: Tuesday, January 31, 2017 07:34 - CONCLUSION: 1. No evidence for pulmonary embolism. 2. Masslike consolidation right apex and right perihilar region, is consistent with bronchogenic carcinoma. 3. Diffuse sclerotic metastasis. 4. There are metastatic lesions to the liver Jani Gilman MD Procedures 01/31/17thoracentesis, pigtail catheter, intubation, central line Assessment and Plan Disease Oriented Problem List: (1) Leukocytosis (2) Community acquired pneumonia (3) Acute respiratory failure with hypoxia (4) Lung malignancy (5) Atrial fibrillation, new onset Symptom Scale: (1) Dyspnea Pertinent Non-Medical Issues Psychosocial:Patient lives at home with spouse, x 61 years. Has 1 brother, 2 sisters. Originally from [place], lived in [place] since 1997. 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 Has 3 children, 3 girls. Spiritual: Legal:Patient is currently able to participate in decision-making. Indicates has advanced directive or possible DPOA document naming his , jennifer Guido as secondary. Requested copies of this documentation. Daughter Lata expresses concern that patient has had mental status deterioration, she suspects dementia process and patient does not remember information from one day to the other, she is concerned about the patient's ability to make informed decisions. Ethical issues impacting care: Important Contacts Spouse Keren Hoang [phone] daughter Lata Jadew [phone] . Prognosis This patient was admitted for acute hypoxic respiratory failure. He has known history of COPD, as well as non-small cell lung cancer, diagnosed in 2013. He has completed chemotherapy, radiation. Appears to have new disease progression with liver metastasis, based on new imaging though I would defer to oncology for full prognosis relating to his disease progression (oncology consult pending ). He is currently being treated with BiPAP, antibiotics. Remains high-risk for further clinical deterioration, and complications. Code Status: Full Code Plan * Legal decision maker:Patient is now unable to participate in decision-making due to clinical condition. Had previously indicated has advanced directive or possible DPOA document naming his , jennifer Guido as secondary. Requested copies of this documentation--we have been unable to obtain copies at this point. Not clear that this POA includes healthcare decision making. Daughter Lata expressed concern that patient has had mental status deterioration, she suspects dementia process and patient does not remember information from one day to the other, she is concerned about the patient's ability to make informed decisions. Nursing, other staff members have witnessed 's repetitiveness, agitated behavior and forgetting conversations that took place. Palliative care has also noted the same behaviors, does not appear that would be able to make informed decision making. Per [place] statutes legally decision-making would fall to the spouse however given concern for her mental status, would then fall to majority of the patient's 3 adult daughters. We have at this point spoken to one of these 3, Lata, will need to communicate with the others to determine if they wish to be involved in decision-making. One daughter is en route from out of the state, another third daughter is estranged family is trying to locate contact information. * Goals: Family present today once the patient to be maintained on current level of treatment, and as comfortable as possible. Does not sound as if they would proceed with any further invasive measures i.e. tracheostomy etc. Her before making actual decisions need to involve appropriate legal decision makers , see legal notation above. CODE STATUS needs to be addressed; however need to obtain the second daughter's contact information to include her in this discussion; will try to address this later this afternoon. Otherwise plan for follow-up family meeting with uncle, and 3 daughters if possible tomorrow . [See subjective family interaction for additional detail] * CODE STATUS: Full code * SYMPTOMS: --Dyspnea-underlying COPD, lung cancer diagnosed 2014baseline shortness of breath, chronic cough. Presented for worsening shortness of breath . s/P thoracentesis, pigtail catheter 02/01. Intubated later that day, now on mechanical vent on sedation, breathing comfortably. Would be difficult to wean off of mechanical vent due to multiple conditions --Malnutrition-poor appetite for the past couple weeks. Patient indicates had recently been put on an appetite stimulant which seem to be helping a little. For the most part though eating very small portions of a few meals a day. Per EMR weights appear relatively stable. Now with OG tube in place status post intubation yesterday. --Anxiety-high risk for given pulmonary diagnoses; dyspnea. Did receive Versed for thoracentesis procedure yesterday. Intubated later yesterday afternoon, Currently breathing comfortably on mechanical vent, sedated with fentanyl appears comfortable at time of exam. * Palliative care will continue to follow during hospital course as condition evolves, to assist patient/decision-maker with understanding of medical conditions, weighing benefits/burdens of treatment options, for clarification of goals of treatment. Additionally will assist with any symptoms of palliative concern Time Spent Total Floor Time (mins): 45 >50% Counseling/Coord of Care: Yes (discussed with critical care, primary nurse ) Attestation To help prompt me to consider important information that might be impacting today's encounter and assessment, information from prior notes written by myself or my colleagues may have been "brought forward" into today's note. My signature on this note, however, is an attestation that I personally performed the exam, history, and/or decision-making noted today, and, unless otherwise indicated, the interactions with patient, family, and staff as well as the review of records all occurred today. I also attest that the listed assessment and stated plan reflect my best clinical judgment today based on the combination of historical information, prior notes, and today's exam/ interactions. When time spent is documented, it refers only to time spent today by the signer, or if indicated, combined time spent today by collaborating physician/nurse practitioner. Reina Biggs February 01, 2017 11:25 review of records all occurred today. I also attest that the listed assessment and stated plan reflect my best clinical judgment today based on the combination of historical information, prior notes, and today's exam/ interactions. When time spent is documented, it refers only to time spent today by the signer, or if indicated, combined time spent today by collaborating physician/nurse practitioner. Reina Biggs February 01, 2017 11:25
--- NOTE | 2017-02-01 11:58 | HHI.CCPN ---
Subjective Remarks/Hospital Course Hospital Course: This is an 81yM with history of lung cancer s/p chemo and radiation, the last treatment was well over a year ago, who presents with a slowly progressive shortness of breath and sputum production over the last few weeks. He denies any fever or chills. denies dyspnea on exertion, but endorses significant progressive fatigue. He and his family state that the intent of his cancer treatment was curative and not palliative, and he does not currently know if his cancer is in remission or not. In the emergency department, he was significantly dyspneic and in respiratory distress. He was placed on BiPAP with improvement in his symptoms. he was also found to be in new-onset Atrial fibrillation with rapid ventricular response. He was started on a diltiazem drip for this. His chest xray demonstrates complete opacification of the right lung field with some element of mediastinal shift towards the right. His laboratory data is significant for a wbc 34k, plt 148, Na 132, Cr 0.93, alk phos 369, BNP 175, lactate 2.8. negative troponin. Critical Care medicine is consulted to evaluate and manage his hypoxic respiratory failure. Subjective: 02/01: central line placed overnight. this morning, on 3 vasopressors. toes with cyanosis. very ill at this time. intubated yesterday afternoon. clinically declining. chest tube with 1100 out yesterday, serous. Even after yesterday's long conversation prior to intubation about code status and the patient will likely not come off the ventilator if intubated and will likely of lung cancer soon, patient's with dementia presents today with minimal if any knowledge of yesterday's conversation, and asks, "can the breathing tube come out today?" palliative following. I share many of the daughter's concerns that Mr. Hoang may not be capacitated to fully understand and make informed medical decisions for him. Objective Vital Signs Date Time Temp Pulse Resp B/P Pulse Ox O2 Delivery O2 Flow Rate FiO2 02/01/17 11:30 100 45 02/01/17 10:30 84 129/12 02/01/17 08:00 98.3 16 01/31/17 07:20 BiPAP Intake and Output 01/31/17 01/31/17 02/01/17 08:00 16:00 00:00 Intake Total 1566 ml 1760 ml Output Total 100 ml 1250 ml Balance 1466 ml 510 ml Result Diagram: 02/01/17 0510 02/01/17 0510 Other Results Microbiology Date/Time Procedure Status Source Growth 01/31/17 18:00 Legionella Antigen - Final Complete Urine Catheterized Urine PRESUMPTIVE NEGATIVE FOR LEGIONELLA P... 01/31/17 18:00 Streptococcus pneumoniae Antigen (M - Final Complete Urine Catheterized Urine PRESUMPTIVE NEGATIVE FOR STREPTOCOCCU... Laboratory Tests Test 02/01/17 05:35 Blood Gas Puncture Site LT RADIAL Blood Gas Patient Temperature 98.6 Blood Gas HCO3 18 mmol/L (22-26) Blood Gas Base Excess -10.0 mmol/L (-2-2) Blood Gas Oxygen Saturation 97 % (90-100) Arterial Blood pH 7.13 (7.380-7.420) Arterial Blood Partial 55 mmHg (38-42) Pressure CO2 Arterial Blood Partial 156 mmHg Pressure O2 (61-120) Arterial Blood Oxygen Content 15.1 Vol % (12.0-20.0) Arterial Blood 1.0 % (0-4) Carboxyhemoglobin Arterial Blood Methemoglobin 1.0 % (0-2) Blood Gas Hemoglobin 10.8 G/DL (12.0-16.0) Oxygen Delivery Device VENTILATOR Blood Gas Ventilator Setting PRVC/AC Blood Gas Inspired Oxygen 60 % Imaging Last Impressions Chest X-Ray 01/31/17 0500 Signed Impressions: Service Date/Time: Tuesday, January 31, 2017 05:12 - CONCLUSION: 1. Right-sided atelectasis versus pneumonia with large right effusion. The patient has known malignancy Aidan Razo MD Objective Remarks GENERAL: Elderly cachectic male, lying in bed, intubated, sedated HEENT: Normocephalic. Atraumatic. Pupils equal, round, reactive, conjugate. Mucous membranes are moist. NECK: trachea midline. mild amount of jvd. endotracheal tube in place. CHEST: Significant decreased breath sounds on the right. Scant wheezes. CARDIOVASCULAR: Tachycardic rate, irregularly irregular rhythm. Appears to be atrial fibrillation by telemetry. ABDOMEN: Soft, nontender, nondistended. No guarding. MUSCULOSKELETAL: No peripheral edema. Distal pulses 2+. NEUROLOGICAL: RASS -3. withdraws to pain. does not follow commands. A/P Assessment and Plan Assessment: This is an 81-year-old male with history of lung cancer, unknown if this is in remission at this time. Who presents with subacute shortness of breath and found to have leukocytosis and an opacified right lung field. Now in complete hypoxic respiratory failure, intubated and now in septic shock secondary to pneumonia. still wanting full code. Palliative care involved. I do not think this deconditioned elderly male now in shock with recurrent cancer and respiratory failure will survive this illness. His prognosis is poor. He remains very critically ill and worse today than yesterday. Plan by systems: Neurologic: Metabolic Encephalopathy fentanyl as needed for sedation, goal RASS -2. Respiratory: Acute hypoxic respiratory failure Opacification of the right lung field Community-acquired pneumonia History of lung cancer, recurrent, stage IV Right pleural effusion Vent bundle --does not meet SBT criteria due to shock Head of bed 30 Wean FiO2 for goal SPO2 greater than 90% CT PE 01/31 without evidence of embolus. large right effusion -- am CXR --pigtail placed 01/31: continue to suction. Cardiovascular: New-onset atrial fibrillation with rapid ventricular response Septic Shock Continue Cardizem drip --Levo, stephane, vaso as needed for map > 65 --2d echo 01/31: normal EF. -- place arterial line for invasive monitoring. Renal: Trend creatinine with daily BMPs -- Strict I/Os FEN/GI: Acute protein calorie malnutritionmoderate Normal saline at 84 mL/hr Daily BMP ICU electrolyte protocol -- NPO while in shock with high vasopressor requirements. Heme/ID: Leukocytosis Community acquired pneumonia Possible postobstructive pneumonia Continue cefepime and azithromycin Legionella and pneumococcal urinary antigen Sputum culture Follow-up blood cultures Daily CBC Endocrine: Hyperglycemia of critical illness -- SSI, medium scale, every 6 hours Prophylaxis: GI Prophylaxis Protonix 40 mg IV 24 hours DVT Prophylaxis -- SCDs Lovenox 40 mg subcutaneous every 24 Lines: right IJ CVL 01/31 --place arterial line Dispo: remain in the ICU. he remains critically ill This patient remains critically ill with one or more organ systems which are or may become a threat to life. I have spent in excess of 42 minutes discontinuously in the care and management of this patient. This time is exclusive of procedures, and includes, but is not limited to, evaluation of the patient, review of the medical record, discussions with family, consultants, nursing staff, or respiratory therapy, and documentation in the medical record. Brett Sofia MD February 01, 2017 11:57
[2017-02-01] MEDS: INSULIN NovoLIN REGULAR SUPPLEMENTAL SCALE SQ SCH ×4 (12:00→23:54)
[2017-02-01] MEDS: SODIUM CHLOR 0.9% 1000 ML INJ 1,000 ML IV SCH (17:09)
--- NOTE | 2017-02-01 19:56 | PD.PROCEDR ---
Procedure Note Procedure Procedure: Arterial Line Placement Left radial arterial line Diagnosis: Septic shock Indications: Need for beat to beat hemodynamic monitoring Consent: Consent is deemed emergent medically necessary Description of the Procedure: The left wrist was prepped and draped sterilely. 1% lidocaine was used for local anesthesia. The pulse was located and a needle was advanced into the artery. A 20 gauge, 3.5 cm catheter was advanced into the artery using a modified Seldinger technique. The catheter was sutured to the skin and a sterile dressing was applied. The catheter was connected to a pressure transducer and an arterial waveform was noted. There were no immediate complications noted. There was minimal EBL. I personally performed the procedure. Brett Sofia MD February 01, 2017 19:56
[2017-02-01] MEDS: VASOPRESSIN INJ 40 UNITS in DEXTROSE 5% IN WATER 100ML INJ 98 ML IV SCH ×2 (23:41)
[2017-02-01] MEDS ORDERED: SODIUM CHLOR 0.9% 1000 ML INJ 3,000 ML IV STA (23:58)
[2017-02-02] VITALS (18 sets, daily range): BP systolic 101–191; BP diastolic 42–83; PULSE 67–143; RESP 16–24; TEMP 96.6–98.3; O2SAT 89–100
[2017-02-02] MEDS: RESP: ALBUTEROL 2.5 MG/IPRATROPIUM 0.5 MG NEB (SCH) INH ×6 (00:27→20:30)
[2017-02-02] MEDS ORDERED: SODIUM CHLOR 0.9% 1000 ML INJ 2,000 ML IV STA (01:40)
[2017-02-02] MEDS: CHLORHEXIDINE GLUCONATE 2 % 1 PACK (2 CLOTHS)(taper/protocol) TOPICAL SCH (04:00)
[2017-02-02] MEDS: CHLORHEXIDINE GLUCONATE 2 % 1 PACK (2 CLOTHS) TOP SCH (04:00)
[2017-02-02] MEDS: CEFEPIME INJ 2,000 MG in SODIUM CHLORIDE 0.9% INJ 100 ML IV SCH ×3 (04:42→20:43)
[2017-02-02] MEDS: AZITHROMYCIN INJ 500 MG in SODIUM CHLOR 0.9% 250 ML INJ 250 ML IV SCH (04:43)
--- NOTE | 2017-02-02 05:05 | RADRPT ---
EXAM DATE/TIME: 02/02/2017 03:49 [facility] COMPARISON: CHEST SINGLE AP, February 01, 2017, 5:01. INDICATIONS : Shortness of breath. MEDICAL HISTORY : None. SURGICAL HISTORY : None. ENCOUNTER: Subsequent ACUITY: 1 week PAIN SCORE: 0/10 LOCATION: Bilateral chest FINDINGS: The cardiac silhouette is enlarged in transverse diameter. There is stable diffuse right-sided opacit y. There is no evidence of pneumothorax. Endotracheal tube is at the christina and could be retracted 2 -3 cm. CONCLUSION: 1. There is no evidence of pneumothorax. There has been no significant change when compared to the p rior exam. 2. Endotracheal tube at the christina as above Aidan Razo MD on February 02, 2017 at 5:02 Board Certified Radiologist. This report was verified electronically.
[2017-02-02] MEDS: INSULIN NovoLIN REGULAR SUPPLEMENTAL SCALE SQ SCH ×5 (05:13→23:52)
[2017-02-02 05:21] LABS: HEMATOCRIT 32.5 % (39.0-51.0); MEAN CELL VOLUME 90.5 FL (80.0-100.0); MEAN CORPUSCULAR HEMOGLOBIN 28.4 PG (27.0-34.0); MEAN CORPUSCULAR HGB CONC 31.4 % (32.0-36.0); PLATELET COUNT 82 TH/MM3 (150-450); RED BLOOD COUNT 3.59 MIL/MM3 (4.50-5.90); WHITE BLOOD COUNT 19.7 TH/MM3 (4.0-11.0)
[2017-02-02 05:29] LABS: REVIEW FLAG FINAL
[2017-02-02 05:57] LABS: BICARBONATE 17.7 MEQ/L (21.0-32.0); POTASSIUM 4.6 MEQ/L (3.5-5.1)
[2017-02-02 06:18] LABS: CALCIUM-PROTEIN CORRECTED 8.4 MG/DL (8.5-10.1)
[2017-02-02] MEDS: SODIUM CHLOR 0.9% 1000 ML INJ 1,000 ML IV SCH (07:39)
[2017-02-02] MEDS ORDERED: METOPROLOL TARTRATE 5 MG/5 ML VIAL ONE (07:57)
[2017-02-02] MEDS ORDERED: METOPROLOL TARTRATE 5 MG/5 ML VIAL IV PUSH ONE (08:15)
[2017-02-02] MEDS ORDERED: LEVOTHYROXINE SODIUM 100 MCG VIAL IV PUSH ONE (08:15)
[2017-02-02 08:18] LABS: OXYGEN DEVICE VENTILATOR
[2017-02-02 08:19] LABS: DRAW SITE LT RADIAL; FIO2 100 %; NUMBER OF ARTERIAL PUNCTURES 1; STAT NO; TEMP CORR TO 98.6; ULNAR PULSE PRESENT; VENT SETTINGS PRVC14/500/5PEEP
[2017-02-02] MEDS ORDERED: DEXTROSE 50% IN WATER 50 ML VIAL(D50) IV PUSH ONE (08:30)
[2017-02-02] MEDS ORDERED: GLUCAGON 1 MG/ML VIAL IM ONE (08:30)
[2017-02-02] MEDS ORDERED: DEXTROSE 50% IN WATER 50 ML VIAL(D50) IV PUSH PRN (08:30)
[2017-02-02] MEDS ORDERED: RESP: ALBUTEROL 2.5 MG/3 ML NEB (PRN) NEB (08:30)
[2017-02-02] MEDS ORDERED: GLUCAGON 1 MG/ML VIAL OTHER PRN (08:30)
[2017-02-02 08:31] LABS: BLOOD GAS BASE EXCESS -15.8 mmol/L (-2-2); BLOOD GAS HCO3 12 mmol/L (22-26); BLOOD GAS O2 HGB SATURATION 98 % (90-100); BLOOD GAS OXYGEN CONTENT 14.8 Vol % (12.0-20.0); BLOOD GAS PCO2 38 mmHg (38-42); BLOOD GAS PO2 304 mmHg (61-120); BLOOD GAS TOTAL HGB 10.2 G/DL (12.0-16.0); CRITICAL VALUE YES; OXYGEN DEVICE VENTILATOR; TEMP CORR TO 98.6
[2017-02-02 08:32] LABS: DRAW SITE ALINE; FIO2 100 %; STAT NO; VENT SETTINGS SEE COMMENTS
--- NOTE | 2017-02-02 08:41 | HHI.CCPN ---
Subjective Remarks/Hospital Course 81yM with history of lung cancer s/p chemo and radiation, the last treatment was well over a year ago, who presents with a slowly progressive shortness of breath and sputum production over the last few weeks. He denies any fever or chills. denies dyspnea on exertion, but endorses significant progressive fatigue. He and his family state that the intent of his cancer treatment was curative and not palliative, and he does not currently know if his cancer is in remission or not. In the emergency department, he was significantly dyspneic and in respiratory distress. He was placed on BiPAP with improvement in his symptoms. he was also found to be in new-onset Atrial fibrillation with rapid ventricular response. He was started on a diltiazem drip for this. His chest xray demonstrates complete opacification of the right lung field with some element of mediastinal shift towards the right. His laboratory data is significant for a wbc 34k, plt 148, Na 132, Cr 0.93, alk phos 369, BNP 175, lactate 2.8. negative troponin. Critical Care medicine is consulted to evaluate and manage his hypoxic respiratory failure. 02/01: central line placed overnight. this morning, on 3 vasopressors. toes with cyanosis. very ill at this time. intubated yesterday afternoon. clinically declining. chest tube with 1100 out yesterday, serous. Even after yesterday's long conversation prior to intubation about code status and the patient will likely not come off the ventilator if intubated and will likely of lung cancer soon, patient's with dementia presents today with minimal if any knowledge of yesterday's conversation, and asks, "can the breathing tube come out today?" palliative following. I share many of the daughter's concerns that Mr. Hoang may not be capacitated to fully understand and make informed medical decisions for him. Subjective: 02/02: Afebrile. Received 5 L normal saline overnight. In sinus tachycardia. Eyes are open. Minimal output of chest tube overnight. Tube feeds not been started yet. Objective Vital Signs Date Time Temp Pulse Resp B/P Pulse Ox O2 Delivery O2 Flow Rate FiO2 02/02/17 06:00 126 02/02/17 04:15 98 45 02/02/17 04:00 96.8 22 135/47 01/31/17 07:20 BiPAP Intake and Output 02/01/17 02/01/17 02/02/17 08:00 16:00 00:00 Intake Total 3553 ml 2683 ml 1304 ml Output Total 650 ml 125 ml 110 ml Balance 2903 ml 2558 ml 1194 ml Result Diagram: 02/02/17 0500 02/02/17 0500 Other Results Microbiology Date/Time Procedure Status Source Growth 02/01/17 02:40 Gram Stain - Final Resulted Sputum Endotracheal 02/01/17 02:40 Sputum Culture Resulted Sputum Endotracheal Pending 01/31/17 18:00 Legionella Antigen - Final Complete Urine Catheterized Urine PRESUMPTIVE NEGATIVE FOR LEGIONELLA P... 01/31/17 18:00 Streptococcus pneumoniae Antigen (M - Final Complete Urine Catheterized Urine PRESUMPTIVE NEGATIVE FOR STREPTOCOCCU... 01/31/17 12:45 Fungal Smear - Final Resulted Fluid Pleural Fluid NO FUNGAL ELEMENTS SEEN. 01/31/17 12:45 Fungal Culture Resulted Fluid Pleural Fluid Pending 01/31/17 12:45 Acid Fast Stain - Final Resulted Fluid Pleural Fluid NO ACID FAST BACILLI SEEN 01/31/17 12:45 Mycobacterial Culture Resulted Fluid Pleural Fluid Pending 01/31/17 05:35 Aerobic Blood Culture - Preliminary Resulted Blood Peripheral NO GROWTH IN 1 DAY 01/31/17 05:35 Anaerobic Blood Culture - Preliminary Resulted Blood Peripheral NO GROWTH IN 1 DAY Imaging Last Impressions Chest X-Ray 02/02/17 0600 Signed Impressions: Service Date/Time: Thursday, February 02, 2017 03:49 - CONCLUSION: 1. There is no evidence of pneumothorax. There has been no significant change when compared to the prior exam. 2. Endotracheal tube at the christina as above Aidan Razo MD CT Angiography 01/31/17 0000 Signed Impressions: Service Date/Time: Tuesday, January 31, 2017 07:34 - CONCLUSION: 1. No evidence for pulmonary embolism. 2. Masslike consolidation right apex and right perihilar region, is consistent with bronchogenic carcinoma. 3. Diffuse sclerotic metastasis. 4. There are metastatic lesions to the liver Jani Gilman MD Objective Remarks GENERAL: 81-year-old male, critically ill currently resting in bed in no acute distress SKIN: Warm and dry. No rash. Cyanotic toes bilaterally HEAD: Atraumatic. Normocephalic. EYES: Pupils equal and round about 2-3 mm bilaterally and reactive. No scleral icterus. No injection or drainage. ENT: No nasal bleeding or discharge. Mucous membranes pink and moist. NECK: Trachea midline. No JVD. CARDIOVASCULAR: Tachycardic, RR. S1, S2 no S4. Without murmur. RESPIRATORY: Coarse crackles appreciated throughout the right lung sol. Diminished. GASTROINTESTINAL: Abdomen soft, non-tender, nondistended. Hypoactive bowel sounds are appreciated MUSCULOSKELETAL: Extremities 1+ peripheral edema. No obvious deformities. NEUROLOGICAL: Arousable on the ventilator. Opens eyes. Doesn't gag. Moves all 4 extremities spontaneous. Not following commands. Urinary Catheter: Yes Assessment to: Continue Walker insert reason: Prolonged Immobilization Vascular Central Line Catheter: Yes Assessment to: Continue Date of Insertion: February 01, 2017 Line: Central Venous Catheter Side: Right Location: Subclavian A/P Assessment and Plan Neuro/Psych: Metabolic Encephalopathy Check ammonia level altered mental status Will order propofol/fentanyl drip at 100 mg an hour for sedation/analgesia while intubated goal RASS -2. Daily sedation vacation Holding Mirtzapine 7.5 mg by mouth at bedtime When stable check CT head rule out metastases Respiratory: Acute hypoxic respiratory failure Community-acquired pneumonia History of lung cancer, recurrent, stage IV = Right pleural effusion History COPD PRVC 16/600/1.3/8/100 Ventilator bundle Duo nebs every 4 hours with albuterol breakthrough 2 every hours when necessary Retract ET tube 2 cm Wean FiO2 to keep saturation greater than equal to 90% CT PE 01/31 right apex/perihilar masslike consolidation. Left upper lobe pulmonary nodule 7 mm. Severe centrilobular emphysema. Metastases to thoracic , lumbar ribs and liver Right pigtail catheter -40 cm H2O - On Anoro/Ellipta 62.5/25 one inhalation daily at home. Cardiovascular: New-onset atrial fibrillation with rapid ventricular response - currently sinus tachycardia Septic Shock Dyslipidemia --Patient is currently on vasopressin 0.04 units per minute/Robert-Synephrine to maintain MAP greater than 65 --Currently normal saline at 84 cc an hour. We'll switch to bicarbonate drip at 150 cc an hour with relative acidosis --2d echo 01/31: Ejection fraction 60%. No regional wall motion abnormality. Small her cardial effusion Holding lovastatin 80 mg by mouth daily/home medication for dyslipidemia. Resume as clinically indicated Currently on Flotrack with sinus tachycardia. Would discontinue if A. fib. Cardiac outputs 7.0. Cardiac index 4.2. SVV 21 Renal: Trend creatinine with daily BMPs -- Strict I/Os FEN/GI: Acute protein calorie malnutritionmoderate Hyponatremia Start Jevity 1.5 goal 50 cc an hour Protonix for GI prophylaxis Colace twice a day/Senokot daily for bowel regimen Replacing lites lites as clinically indicated Follow BMP in a.m. 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 Follow trends. Noted downward trend platelets and white blood cell count See pulmonary. Dr. Benedict/oncology is following. Not a candidate for palliative radiation therapy due to intubation. Palliative care is following ID: Community acquired pneumonia Possible postobstructive pneumonia Continue cefepime and azithromycin day #3 Pertinent cultures 02/01 - sputum - Gram stain negative. 01/31 - blood cultures 2 - no growth 01/31 - urine - no growth to date 01/31 - urine Legionella and pneumococcal antigens negative Endocrine: Hyperglycemia of critical illness Chronic prednisone use -- SSI, medium scale, every 6 hours - On prednisone 100 mg daily. Switch Solu-Medrol 40 IV every 8 hours Prophylaxis: GI Prophylaxis Protonix 40 mg IV 24 hours DVT Prophylaxis -- SCDs Lovenox 40 mg subcutaneous every 24 Lines: right IJ CVL 01/31 --Left radial arterial line 02/01 Critical Care: The total critical care time was 45 minutes. Time to perform other separately billable procedures was not included in the critical care time. Edmund Reyes MD February 02, 2017 08:41
[2017-02-02] MEDS ORDERED: SODIUM BICARBONATE 8.4% INJ 50 MEQ/50 ML SYR IV PUSH ONE (09:00)
[2017-02-02] MEDS ORDERED: DEXMEDETOMIDINE INJ 200 MCG in SODIUM CHLORIDE 0.9% INJ 50 ML IV SCH (09:00)
[2017-02-02] MEDS: SENNOSIDES SYRUP 8.8 MG/5 ML CUP PO SCH (09:23)
[2017-02-02] MEDS: PANTOPRAZOLE SODIUM 40 MG VIAL IV SCH (09:24)
[2017-02-02] MEDS: DOCUSATE SODIUM 100 MG/10 ML UDC PO SCH ×2 (09:24→20:43)
[2017-02-02] MEDS: ENOXAPARIN SODIUM 40 MG/0.4 ML SYRINGE SQ SCH (09:24)
[2017-02-02] MEDS: PROPOFOL 1000 MG/100 ML INJ 100 ML IV SCH ×2 (09:26→16:31)
[2017-02-02] MEDS: NUTRISOURCE FIBER POWDER 1 PACK G-TUBE SCH ×4 (10:00→18:00)
[2017-02-02] MEDS: PHENYLEPHRINE INJ 40 MG in DEXTROSE 5% IN WATE 500 ML INJ 496 ML IV SCH ×4 (10:26→14:15)
--- NOTE | 2017-02-02 10:26 | EKG ---
Date Performed: 02/02/2017 Time Performed: 07:34:06 PTAGE: 81 years EKG: Sinus tachycardia. Lateral T wave changes are nonspecific Generalized low QRS voltages [facility] ECG PREVIOUS TRACING : 01/31/2017 05.13 DOCTOR: Terry Baird Interpretating Date/Time 02/02/2017 10:26:06
[2017-02-02] MEDS: SODIUM BICARBONATE 8.4% INJ 150 MEQ in WATER STERILE FOR INJ 850 ML IV SCH ×3 (10:27→23:49)
--- NOTE | 2017-02-02 10:36 | HHI.HCPN ---
Reason for visit a. To assist with evaluation and management of symptoms including: dyspnea, anxiety, malnutrition b. To assist medical decision maker(s) with: better understanding of current medical conditions; weighing benefits/burdens of medical treatment options; making medical treatment decisions. Subjective/Interval History Pt seen today to follow up on comfort, goals. Patient seen in room , dual visit with Radha FLANAGAN. Patient tachycardic overnight A. fib rate [id number]. CXR today unchanged, continues to have diffuse right-sided opacity. Pigtail chest tube remains in place very little output 60ml. remains on mechanical vent, fentanyl 100 mcs/hr for sedation. fio2 80%. On Levophed, vasopressin. ABGs this am bicarbonate 12 , pH 7.12. Pt seen in room no family present, nsg at bedside. Nonresponsive to exam. feet cool/blue. Fingertips cool/blue. Tachycardic, aflutter rate 150 visible on bedside monitor. D/w Dr Reyes, and Dr Benedict who arrives as I am completing my exam. D/w primary RN. Call to dtr Lata, they will be in hospital about 30 min, plan to meet with them around 1115am. . Family/friend interactions Met w family at length: daugthers Dianne Lata, , brother in law. Reviewed conditions, hospital course, current assessment, prognosis, code status , pt wishes. Family all in agreement pt should be DNR. Dtrs, SMITH, appear to have reasonable understanding of conditions, prognosis. continues to be forgetful, though does seem aware that he is in critical condition and not expected to survive. continues to verbalize that pt would not want to suffer, and would not want life support. Dtrs feel patient agreed to intubation because he was acutely short of breath and frightened. They all agree that at this point patient would want no further escalation of treatments, they are still struggling and do not wish to discontinue any treatments. However they want no further invasive procedures or measures, he requested no additional medications be added for new infections, new diagnoses, no new cardiac medications. Upon review of further up titration of cardiac medicines in place for blood pressure low and worse no further increases if the patient's blood pressure falls they would want to do so and allow him to naturally. The only medications they would want added additionally would be if he needed anything else for comfort, anxiety, pain. Advised that I would still call patient third daughter. ---- Call to daughter Nico, she has been in communication with her uncle, patient brother in law. She does endorse that she has been estranged from the patient and his for a couple years ago. She was aware the patient is in the hospital. I briefly explore conditions, prognosis, treatments in place and previous discussion detailed above with family. She endorses that she agrees with DNR status, she feels her father would not want further heroic measures. She feels he would want to be allowed to pass naturally showed any further issues arise. All questions answered, provided her with palliative contact information, as well as contact information for ICU. Advance Directives Living Will: Completed, but not made available Health Care Surrogate: Completed, but not made available Durable Power of Research Hydrologist: Completed, but not made available Objective Vital Signs Date Time Temp Pulse Resp B/P Pulse Ox O2 Delivery O2 Flow Rate FiO2 02/02/17 08:48 100 80 02/02/17 06:00 126 02/02/17 04:15 98 45 02/02/17 04:00 45 02/02/17 04:00 96.8 132 22 135/47 89 02/02/17 04:00 70 141/42 02/02/17 04:00 132 02/02/17 02:00 130 02/02/17 00:27 100 45 02/02/17 00:00 127 02/02/17 00:00 97.1 127 16 131/46 100 02/02/17 00:00 45 02/02/17 00:00 70 141/42 02/01/17 22:00 135 02/01/17 20:00 70 02/01/17 20:00 97.5 70 16 143/40 100 02/01/17 20:00 70 141/42 02/01/17 20:00 45 02/01/17 19:48 100 45 02/01/17 18:00 90 02/01/17 16:00 84 126/45 02/01/17 16:00 97.9 69 16 126/45 100 62/44 02/01/17 16:00 69 02/01/17 16:00 45 02/01/17 15:20 100 45 02/01/17 14:00 103 02/01/17 12:00 84 122/42 Automatic Cuff 02/01/17 12:00 98.4 91 16 61/43 100 122/42 02/01/17 12:00 45 02/01/17 12:00 91 02/01/17 11:30 100 45 Intake & Output 02/02/17 02/02/17 07:00 19:00 Intake Total 2127 ml Output Total 760 ml Balance 1367 ml Intake Oral 0 ml IV Total 2127 ml Output Urine Total 700 ml Stool Total 0 ml Chest Tube Drainage Total 60 ml Physical Exam CONSTITUTIONAL/GENERAL: This is a thin, chronically ill-appearing patient. sedated on mech vent TUBES/LINES/DRAINS: Peripheral IVs bilateral upper extremities,PIV left ankle, rt SC central line, radial arterial line, ETT, OGT, rt chest tube SKIN: No jaundice, rashes, or lesions. Several scattered areas Ecchymoses on upper extremities. No wounds seen anteriorly. Skin temperature appropriate. Not diaphoretic. CARDIOVASCULAR: Irregular rate and rhythm, atrial flutter 150 at bedside monitor. Difficult to auscultate over noisy breath sounds. +JVD. Unable to palpate pedal pulses, feet cold/blue, finger tips cool/blue. RESPIRATORY/CHEST: Symmetric, unlabored resp on mech vent. Coarse air movement throughout, decreased air to basis.+ small rt chest tube, sm amt drainage. GASTROINTESTINAL: Abdomen soft,flat, nondistended. No palpable masses. No guarding. Bowel sounds hypoactive. OGT clamped NEUROLOGICAL: sedated on mech vent, non responsive to exam. PSYCHIATRIC: sedated, appearing comfortable. Diagnostic Tests Laboratory Laboratory Tests Test 01/31/17 01/31/17 01/31/17 01/31/17 05:10 05:14 06:05 09:00 White Blood Count 34.4 TH/MM3 (4.0-11.0) Red Blood Count 4.82 MIL/MM3 (4.50-5.90) Hemoglobin 14.0 GM/DL (13.0-17.0) Hematocrit 43.0 % (39.0-51.0) Mean Corpuscular Volume 89.1 FL (80.0-100.0) Mean Corpuscular Hemoglobin 29.0 PG (27.0-34.0) Mean Corpuscular Hemoglobin 32.5 % Concent (32.0-36.0) Red Cell Distribution Width 15.9 % (11.6-17.2) Platelet Count 148 TH/MM3 (150-450) Mean Platelet Volume 8.3 FL (7.0-11.0) Neutrophils (%) (Auto) 69.3 % (16.0-70.0) Lymphocytes (%) (Auto) 8.1 % (9.0-44.0) Monocytes (%) (Auto) 7.7 % (0.0-8.0) Eosinophils (%) (Auto) 14.5 % (0.0-4.0) Basophils (%) (Auto) 0.4 % (0.0-2.0) Neutrophils # (Auto) 23.8 TH/MM3 (1.8-7.7) Lymphocytes # (Auto) 2.8 TH/MM3 (1.0-4.8) Monocytes # (Auto) 2.6 TH/MM3 (0-0.9) Eosinophils # (Auto) 5.0 TH/MM3 (0-0.4) Basophils # (Auto) 0.1 TH/MM3 (0-0.2) CBC Comment AUTO DIFF Differential Total Cells 100 Counted Neutrophils % (Manual) 60 % (16-70) Band Neutrophils % 16 % (0-6) Lymphocytes % 6 % (9-44) Monocytes % 4 % (0-8) Eosinophils % 14 % (0-4) Neutrophils # (Manual) 26.1 TH/MM3 (1.8-7.7) Differential Comment FINAL DIFF MANUAL Toxic Vacuolation PRESENT (NONE SEEN) Dohle Bodies PRESENT (NONE SEEN) Platelet Estimate NORMAL (NORMAL) Platelet Morphology Comment NORMAL (NORMAL) Acanthocytes OCC (NORMAL) Prothrombin Time 11.5 SEC (9.8-11.6) Prothromb Time International 1.0 RATIO Ratio Activated Partial 25.4 SEC Thromboplast Time (24.3-30.1) Sodium Level 132 MEQ/L (136-145) Potassium Level 4.3 MEQ/L (3.5-5.1) Chloride Level 99 MEQ/L (98-107) Carbon Dioxide Level 24.9 MEQ/L (21.0-32.0) Anion Gap 8 MEQ/L (5-15) Blood Urea Nitrogen 17 MG/DL (7-18) Creatinine 0.93 MG/DL (0.60-1.30) Estimat Glomerular Filtration 78 ML/MIN (>89) Rate Random Glucose 116 MG/DL (74-106) Calcium Level 8.9 MG/DL (8.5-10.1) Total Bilirubin 0.4 MG/DL (0.2-1.0) Aspartate Amino Transf 15 U/L (15-37) (AST/SGOT) Alanine Aminotransferase 20 U/L (12-78) (ALT/SGPT) Alkaline Phosphatase 369 U/L (45-117) Total Creatine Kinase 64 U/L (39-308) Troponin I LESS THAN 0.02 NG/ML (0.02-0.05) B-Type Natriuretic Peptide 175 PG/ML (0-100) Total Protein 7.2 GM/DL (6.4-8.2) Albumin 3.0 GM/DL (3.4-5.0) Free Thyroxine 0.84 NG/DL (0.76-1.46) Thyroid Stimulating Hormone 23.900 uIU/ML 3rd Gen (0.358-3.740) Lactic Acid Level 2.8 mmol/L (0.4-2.0) Blood Gas Puncture Site LT RADIAL Blood Gas Patient Temperature 98.6 Blood Gas HCO3 21 mmol/L (22-26) Blood Gas Base Excess -2.7 mmol/L (-2-2) Blood Gas Oxygen Saturation 94 % (90-100) Arterial Blood pH 7.39 (7.380-7.420) Arterial Blood Partial 36 mmHg (38-42) Pressure CO2 Arterial Blood Partial 72 mmHG Pressure O2 (61-120) Arterial Blood Oxygen Content 15.3 Vol % (12.0-20.0) Arterial Blood 1.0 % (0-4) Carboxyhemoglobin Arterial Blood Methemoglobin 0.3 % (0-2) Blood Gas Hemoglobin 11.5 G/DL (12.0-16.0) Oxygen Delivery Device BIPAP Blood Gas Ventilator Setting IPAP=12 EPAP=6 Blood Gas Inspired Oxygen 35 % Nasal Screen MRSA (PCR) MRSA NOT DETECTED (NOT DETECT) Test 01/31/17 01/31/17 01/31/17 01/31/17 12:45 15:30 18:08 20:45 Pleural Fluid pH 8.0 Pleural Fluid WBC 84 /MM3 (0-10) Pleural Fluid RBC 8 /MM3 (0-0) Pleural Fluid Neutrophils 8 % Pleural Fluid Lymphocytes 55 % Pleural Fluid Monocytes 12 % Pleural Fluid Eosinophils 12 % Pleural Fluid Histiocytes 5 % Pleural Fluid Mesothelial 8 % Cells Pleural Fluid Total Protein 3.9 GM/DL Pleural Fluid LDH 72 U/L Pleural Fluid Glucose 98 MG/DL Pleural Fluid Amylase 385 U/L Lactic Acid Level 2.1 mmol/L (0.4-2.0) Troponin I 0.02 NG/ML 0.02 NG/ML (0.02-0.05) (0.02-0.05) Blood Gas Puncture Site LT RADIAL Blood Gas Patient Temperature 98.6 Blood Gas HCO3 19 mmol/L (22-26) Blood Gas Base Excess -6.3 mmol/L (-2-2) Blood Gas Oxygen Saturation 97 % (90-100) Arterial Blood pH 7.29 (7.380-7.420) Arterial Blood Partial 41 mmHg (38-42) Pressure CO2 Arterial Blood Partial 176 mmHg Pressure O2 (61-120) Arterial Blood Oxygen Content 17.2 Vol % (12.0-20.0) Arterial Blood 1.0 % (0-4) Carboxyhemoglobin Arterial Blood Methemoglobin 1.1 % (0-2) Blood Gas Hemoglobin 12.4 G/DL (12.0-16.0) Oxygen Delivery Device VENTILATOR Blood Gas Ventilator Setting [id number]/500/[id number] Blood Gas Inspired Oxygen 100 % Test 02/01/17 02/01/17 02/02/17 02/02/17 05:10 05:35 05:00 08:21 White Blood Count 25.8 TH/MM3 19.7 TH/MM3 (4.0-11.0) (4.0-11.0) Red Blood Count 3.76 MIL/MM3 3.59 MIL/MM3 (4.50-5.90) (4.50-5.90) Hemoglobin 10.7 GM/DL 10.2 GM/DL (13.0-17.0) (13.0-17.0) Hematocrit 33.8 % 32.5 % (39.0-51.0) (39.0-51.0) Mean Corpuscular Volume 90.0 FL 90.5 FL (80.0-100.0) (80.0-100.0) Mean Corpuscular Hemoglobin 28.4 PG 28.4 PG (27.0-34.0) (27.0-34.0) Mean Corpuscular Hemoglobin 31.5 % 31.4 % Concent (32.0-36.0) (32.0-36.0) Red Cell Distribution Width 16.0 % 16.0 % (11.6-17.2) (11.6-17.2) Platelet Count 119 TH/MM3 82 TH/MM3 (150-450) (150-450) Mean Platelet Volume 8.5 FL 8.7 FL (7.0-11.0) (7.0-11.0) Sodium Level 128 MEQ/L 131 MEQ/L (136-145) (136-145) Potassium Level 4.0 MEQ/L 4.6 MEQ/L (3.5-5.1) (3.5-5.1) Chloride Level 99 MEQ/L 105 MEQ/L (98-107) (98-107) Carbon Dioxide Level 21.3 MEQ/L 17.7 MEQ/L (21.0-32.0) (21.0-32.0) Anion Gap 8 MEQ/L (5-15) 8 MEQ/L (5-15) Blood Urea Nitrogen 16 MG/DL (7-18) 16 MG/DL (7-18) Creatinine 0.88 MG/DL 0.92 MG/DL (0.60-1.30) (0.60-1.30) Estimat Glomerular Filtration 83 ML/MIN (>89) 79 ML/MIN (>89) Rate Random Glucose 181 MG/DL 108 MG/DL (74-106) (74-106) Calcium Level 7.1 MG/DL 7.0 MG/DL (8.5-10.1) (8.5-10.1) Protein Corrected Calcium 8.5 MG/DL 8.4 MG/DL (8.5-10.1) (8.5-10.1) Troponin I 0.03 NG/ML (0.02-0.05) Total Protein 4.6 GM/DL 4.5 GM/DL (6.4-8.2) (6.4-8.2) Blood Gas Puncture Site LT RADIAL NICA Blood Gas Patient Temperature 98.6 98.6 Blood Gas HCO3 18 mmol/L 12 mmol/L (22-26) (22-26) Blood Gas Base Excess -10.0 mmol/L -15.8 mmol/L (-2-2) (-2-2) Blood Gas Oxygen Saturation 97 % (90-100) 98 % (90-100) Arterial Blood pH 7.13 7.12 (7.380-7.420) (7.380-7.420) Arterial Blood Partial 55 mmHg (38-42) 38 mmHg (38-42) Pressure CO2 Arterial Blood Partial 156 mmHg 304 mmHg Pressure O2 (61-120) (61-120) Arterial Blood Oxygen Content 15.1 Vol % 14.8 Vol % (12.0-20.0) (12.0-20.0) Arterial Blood 1.0 % (0-4) 1.0 % (0-4) Carboxyhemoglobin Arterial Blood Methemoglobin 1.0 % (0-2) 1.0 % (0-2) Blood Gas Hemoglobin 10.8 G/DL 10.2 G/DL (12.0-16.0) (12.0-16.0) Oxygen Delivery Device VENTILATOR VENTILATOR Blood Gas Ventilator Setting PRVC/AC SEE COMMENTS Blood Gas Inspired Oxygen 60 % 100 % Result Diagram: 02/02/17 0500 02/02/17 0500 Microbiology Microbiology Date/Time Procedure Status Source Growth 01/31/17 05:10 Aerobic Blood Culture - Preliminary Resulted Blood Peripheral NO GROWTH IN 1 DAY 01/31/17 05:10 Anaerobic Blood Culture - Preliminary Resulted Blood Peripheral NO GROWTH IN 1 DAY 01/31/17 05:35 Aerobic Blood Culture - Preliminary Resulted Blood Peripheral NO GROWTH IN 1 DAY 01/31/17 05:35 Anaerobic Blood Culture - Preliminary Resulted Blood Peripheral NO GROWTH IN 1 DAY 01/31/17 12:45 Gram Stain - Final Resulted Fluid Pleural Fluid 01/31/17 12:45 Body Fluid Culture - Preliminary Resulted Fluid Pleural Fluid NO GROWTH IN 48 HOURS. 01/31/17 12:45 Acid Fast Stain - Final Resulted Fluid Pleural Fluid NO ACID FAST BACILLI SEEN 01/31/17 12:45 Mycobacterial Culture Resulted Fluid Pleural Fluid Pending 01/31/17 12:45 Fungal Smear - Final Resulted Fluid Pleural Fluid NO FUNGAL ELEMENTS SEEN. 01/31/17 12:45 Fungal Culture Resulted Fluid Pleural Fluid Pending 01/31/17 18:00 Legionella Antigen - Final Complete Urine Catheterized Urine PRESUMPTIVE NEGATIVE FOR LEGIONELLA P... 01/31/17 18:00 Streptococcus pneumoniae Antigen (M - Final Complete Urine Catheterized Urine PRESUMPTIVE NEGATIVE FOR STREPTOCOCCU... 02/01/17 02:40 Gram Stain - Final Resulted Sputum Endotracheal 02/01/17 02:40 Sputum Culture Resulted Sputum Endotracheal Pending Imaging Last Impressions Chest X-Ray 02/02/17 0600 Signed Impressions: Service Date/Time: Thursday, February 02, 2017 03:49 - CONCLUSION: 1. There is no evidence of pneumothorax. There has been no significant change when compared to the prior exam. 2. Endotracheal tube at the christina as above Aidan Razo MD CT Angiography 01/31/17 0000 Signed Impressions: Service Date/Time: Tuesday, January 31, 2017 07:34 - CONCLUSION: 1. No evidence for pulmonary embolism. 2. Masslike consolidation right apex and right perihilar region, is consistent with bronchogenic carcinoma. 3. Diffuse sclerotic metastasis. 4. There are metastatic lesions to the liver Jani Gilman MD Procedures 01/31/17thoracentesis, pigtail catheter, intubation, central line Assessment and Plan Disease Oriented Problem List: (1) Leukocytosis (2) Community acquired pneumonia (3) Acute respiratory failure with hypoxia (4) Lung malignancy (5) Atrial fibrillation, new onset Symptom Scale: (1) Dyspnea Pertinent Non-Medical Issues Psychosocial:Patient lives at home with spouse, x 61 years. Has 1 brother, 2 sisters. Originally from [place], lived in [place] since 1997. 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 Has 3 children, 3 girls. Spiritual: Legal:Patient is currently able to participate in decision-making. Indicates has advanced directive or possible DPOA document naming his , jennifer Guido as secondary. Requested copies of this documentation. Daughter Lata expresses concern that patient has had mental status deterioration, she suspects dementia process and patient does not remember information from one day to the other, she is concerned about the patient's ability to make informed decisions. Ethical issues impacting care: Important Contacts Spouse Keren Hoang [phone] Lata Yanez dtr [phone] Dianne Martinez dtr [phone] Nico Mann dtr (estranged) [phone] . Prognosis This patient was admitted for acute hypoxic respiratory failure. He has known history of COPD, as well as non-small cell lung cancer, diagnosed in 2013. He has completed chemotherapy, radiation. Appears to have new disease progression with liver metastasis, based on new imaging though I would defer to oncology for full prognosis relating to his disease progression (oncology consult pending ). He is currently being treated with BiPAP, antibiotics. Remains high-risk for further clinical deterioration, and complications. Code Status: Full Code Plan * Legal decision maker:Patient is now unable to participate in decision-making due to clinical condition. Had previously indicated has advanced directive or possible DPOA document naming his , jennifer Guido as secondary. Requested copies of this documentation--we have been unable to obtain copies at this point. Not clear that this POA includes healthcare decision making. Daughter Lata expressed concern that patient has had mental status deterioration, she suspects dementia process and patient does not remember information from one day to the other, she is concerned about the patient's ability to make informed decisions. Nursing, other staff members have witnessed 's repetitiveness, agitated behavior and forgetting conversations that took place. Palliative care has also noted the same behaviors, does not appear that would be able to make informed decision making. Per [place] statutes legally decision-making would fall to the spouse however given concern for her mental status, would then fall to majority of the patient's 3 adult daughters.Would be best to have shared decision making, SUPPORTED by majority of adult children. 5/3 All daughters have been spoken to by palliative, all 3 are in agreement with DNR, no further escalation of treatment. * Goals: Family meeting planned for 1115 am today. 1130 Met w 2 daughters, , bro in law @ length. still somewhat forgetful / some limited insight. Shared decision making - 2 daughters, + . They all elect DNR status, request NO FURTHER ESCALATION OF TX - NO additional invasive procedures, no additional cardiac meds,no increase in current pressors , no additional abx etc. They are NOT ready to discontinue tx or withdrawal however request no additional heroic or prolonging measures. In the coming days they may be open to ongoing discussions regarding withdrawal of artificial measures and comfort focus only. * CODE STATUS: DNR * SYMPTOMS: --Dyspnea-underlying COPD, lung cancer diagnosed 2014baseline shortness of breath, chronic cough. Presented for worsening shortness of breath . s/P thoracentesis, pigtail catheter 02/01. Intubated 02/01, on sedation, breathing comfortably. Would be difficult to wean off of mechanical vent due to multiple conditions --Malnutrition-poor appetite for the past couple weeks. Patient indicates had recently been put on an appetite stimulant which seem to be helping a little. For the most part though eating very small portions of a few meals a day. Per EMR weights appear relatively stable. Now with OG tube in place status post intubation --Anxiety-high risk for given pulmonary diagnoses; dyspnea. intubated. Currently breathing comfortably on mechanical vent, sedated with fentanyl appears comfortable at time of exam. * Palliative care will continue to follow during hospital course as condition evolves, to assist patient/decision-maker with understanding of medical conditions, weighing benefits/burdens of treatment options, for clarification of goals of treatment. Additionally will assist with any symptoms of palliative concern Time Spent Total Floor Time (mins): 65 Face to Face Time (mins): 40 >50% Counseling/Coord of Care: Yes (d/w RN, Dr Reyes) Attestation To help prompt me to consider important information that might be impacting today's encounter and assessment, information from prior notes written by myself or my colleagues may have been "brought forward" into today's note. My signature on this note, however, is an attestation that I personally performed the exam, history, and/or decision-making noted today, and, unless otherwise indicated, the interactions with patient, family, and staff as well as the review of records all occurred today. I also attest that the listed assessment and stated plan reflect my best clinical judgment today based on the combination of historical information, prior notes, and today's exam/ interactions. When time spent is documented, it refers only to time spent today by the signer, or if indicated, combined time spent today by collaborating physician/nurse practitioner. Reina Biggs February 02, 2017 10:36
[2017-02-02] MEDS ORDERED: SODIUM BICARBONATE 8.4% INJ 50 MEQ/50 ML SYR IV ONE (10:45)
[2017-02-02] MEDS: RESP: BUDESONIDE 0.5 MG/2 ML NEB NEB SCH ×2 (11:37→20:30)
[2017-02-02 12:07] LABS: BLOOD GAS BASE EXCESS -9.9 mmol/L (-2-2); BLOOD GAS CARBOXYHEMOGLOBIN 1.4 % (0-4); BLOOD GAS HCO3 15 mmol/L (22-26); BLOOD GAS METHEMOGLOBIN 0.9 % (0-2); BLOOD GAS O2 HGB SATURATION 98 % (90-100); BLOOD GAS OXYGEN CONTENT 13.9 Vol % (12.0-20.0); BLOOD GAS PCO2 27 mmHg (38-42); BLOOD GAS PO2 310 mmHg (61-120); BLOOD GAS TOTAL HGB 9.6 G/DL (12.0-16.0); TEMP CORR TO 98.6
[2017-02-02 12:08] LABS: CRITICAL VALUE YES; DRAW SITE ART LINE; FIO2 80 %; OXYGEN DEVICE VENTILATOR; STAT NO
--- NOTE | 2017-02-02 12:08 | PD.ONC.PN ---
Subjective Subjective Remarks On vent, sedated. Remains on multiple pressors. Objective Data Date Time Temp Pulse Resp B/P Pulse Ox O2 Delivery O2 Flow Rate FiO2 02/02/17 11:39 100 80 02/02/17 08:48 100 80 02/02/17 06:00 126 02/02/17 04:15 98 45 02/02/17 04:00 45 02/02/17 04:00 96.8 132 22 135/47 89 02/02/17 04:00 70 141/42 02/02/17 04:00 132 02/02/17 02:00 130 02/02/17 00:27 100 45 02/02/17 00:00 127 02/02/17 00:00 97.1 127 16 131/46 100 02/02/17 00:00 45 02/02/17 00:00 70 141/42 02/01/17 22:00 135 02/01/17 20:00 70 02/01/17 20:00 97.5 70 16 143/40 100 02/01/17 20:00 70 141/42 02/01/17 20:00 45 02/01/17 19:48 100 45 02/01/17 18:00 90 02/01/17 16:00 84 126/45 02/01/17 16:00 97.9 69 16 126/45 100 62/44 02/01/17 16:00 69 02/01/17 16:00 45 02/01/17 15:20 100 45 02/01/17 14:00 103 02/02/17 02/02/17 02/02/17 07:00 15:00 23:00 Intake Total 823 ml Output Total 650 ml Balance 173 ml Result Diagram: 02/02/17 0500 02/02/17 0500 Laboratory Results Laboratory Tests Test 02/02/17 02/02/17 05:00 08:21 White Blood Count 19.7 TH/MM3 Red Blood Count 3.59 MIL/MM3 Hemoglobin 10.2 GM/DL Hematocrit 32.5 % Mean Corpuscular Volume 90.5 FL Mean Corpuscular Hemoglobin 28.4 PG Mean Corpuscular Hemoglobin 31.4 % Concent Red Cell Distribution Width 16.0 % Platelet Count 82 TH/MM3 Mean Platelet Volume 8.7 FL Sodium Level 131 MEQ/L Potassium Level 4.6 MEQ/L Chloride Level 105 MEQ/L Carbon Dioxide Level 17.7 MEQ/L Anion Gap 8 MEQ/L Blood Urea Nitrogen 16 MG/DL Creatinine 0.92 MG/DL Estimat Glomerular Filtration 79 ML/MIN Rate Random Glucose 108 MG/DL Calcium Level 7.0 MG/DL Protein Corrected Calcium 8.4 MG/DL Total Protein 4.5 GM/DL Blood Gas Puncture Site NICA Blood Gas Patient Temperature 98.6 Blood Gas HCO3 12 mmol/L Blood Gas Base Excess -15.8 mmol/L Blood Gas Oxygen Saturation 98 % Arterial Blood pH 7.12 Arterial Blood Partial 38 mmHg Pressure CO2 Arterial Blood Partial 304 mmHg Pressure O2 Arterial Blood Oxygen Content 14.8 Vol % Arterial Blood 1.0 % Carboxyhemoglobin Arterial Blood Methemoglobin 1.0 % Blood Gas Hemoglobin 10.2 G/DL Oxygen Delivery Device VENTILATOR Blood Gas Ventilator Setting SEE COMMENTS Blood Gas Inspired Oxygen 100 % Culture Results Microbiology Date/Time Procedure Status Source Growth 01/31/17 05:10 Aerobic Blood Culture - Preliminary Resulted Blood Peripheral NO GROWTH IN 2 DAYS 01/31/17 05:10 Anaerobic Blood Culture - Preliminary Resulted Blood Peripheral NO GROWTH IN 2 DAYS 01/31/17 05:35 Aerobic Blood Culture - Preliminary Resulted Blood Peripheral NO GROWTH IN 2 DAYS 01/31/17 05:35 Anaerobic Blood Culture - Preliminary Resulted Blood Peripheral NO GROWTH IN 2 DAYS 01/31/17 12:45 Gram Stain - Final Resulted Fluid Pleural Fluid 01/31/17 12:45 Body Fluid Culture - Preliminary Resulted Fluid Pleural Fluid NO GROWTH IN 48 HOURS. 01/31/17 12:45 Acid Fast Stain - Final Resulted Fluid Pleural Fluid NO ACID FAST BACILLI SEEN 01/31/17 12:45 Mycobacterial Culture Resulted Fluid Pleural Fluid Pending 01/31/17 12:45 Fungal Smear - Final Resulted Fluid Pleural Fluid NO FUNGAL ELEMENTS SEEN. 01/31/17 12:45 Fungal Culture Resulted Fluid Pleural Fluid Pending 01/31/17 18:00 Legionella Antigen - Final Complete Urine Catheterized Urine PRESUMPTIVE NEGATIVE FOR LEGIONELLA P... 01/31/17 18:00 Streptococcus pneumoniae Antigen (M - Final Complete Urine Catheterized Urine PRESUMPTIVE NEGATIVE FOR STREPTOCOCCU... 02/01/17 02:40 Gram Stain - Final Resulted Sputum Endotracheal 02/01/17 02:40 Sputum Culture - Preliminary Resulted Sputum Endotracheal LIGHT GROWTH NORMAL RESPIRATORY CARLITA... Imaging Studies Last 24 hours Impressions Chest X-Ray 02/02/17 0600 Signed Impressions: Service Date/Time: Thursday, February 02, 2017 03:49 - CONCLUSION: 1. There is no evidence of pneumothorax. There has been no significant change when compared to the prior exam. 2. Endotracheal tube at the [facility] as above Aidan Razo MD Administered Medications Medications (Trade) Dose Ordered Sig/Garcia Route PRN Reason Start Time Stop Time Status Last Admin Dose Admin Diltiazem HCl/ Sodium Chloride (Cardizem Inj/NS Inj) 125 ml @ 0 mls/hr TITRATE IV 01/31/17 05:30 01/31/17 05:44 Pantoprazole Sodium (Protonix Inj) 40 mg DAILY IV 01/31/17 09:00 02/02/17 09:24 Enoxaparin Sodium 40 mg 40 mg Q24H SQ 01/31/17 08:00 02/02/17 09:24 Cefepime HCl 2000 mg/Sodium Chloride 100 ml @ 200 mls/hr Q8H IV 01/31/17 14:00 02/02/17 04:42 Azithromycin 500 mg/Sodium Chloride 250 ml @ 250 mls/hr Q24H IV 02/01/17 05:00 02/02/17 04:43 Phenylephrine HCl/ Dextrose (Neosynephrine Inj/D5W 500 ml Inj) 500 ml @ 0 mls/hr TITRATE IV 01/31/17 12:00 02/02/17 10:26 Chlorhexidine Gluconate 3 pack 3 pack DAILY@04 TOPICAL 02/01/17 04:00 02/05/17 04:01 02/02/17 04:00 Fentanyl Citrate 250 ml @ 0 mls/hr TITRATE IV 01/31/17 18:15 02/01/17 09:06 Vasopressin/ Dextrose (Pitressin Inj/ D5W 100 ml Inj) 100 ml @ 1.5 mls/hr Q24H IV 01/31/17 21:36 02/01/17 23:41 Docusate Sodium (Colace Liq) 100 mg Q12HR PO 02/02/17 09:00 02/02/17 09:24 Sennosides 8.8 mg 8.8 mg DAILY PO 02/02/17 09:00 02/02/17 09:23 Sodium Bicarbonate 150 meq/Sterile Water 1,000 ml @ 150 mls/hr Q6H40M IV 02/02/17 10:00 02/02/17 10:27 Propofol (Diprivan 1000 Mg/100ml Inj) 100 ml @ 0 mls/hr TITRATE IV 02/02/17 09:00 02/02/17 09:26 Objective Remarks GENERAL: Sedated. SKIN: Warm and dry. HEAD: Normocephalic. EYES: No scleral icterus. No injection or drainage. NECK: Supple, trachea midline. No JVD or lymphadenopathy. LYMPHATIC: No adenopathy. CARDIOVASCULAR: Regular rate and rhythm without murmurs. RESPIRATORY: Breath sounds decreased right lung. GASTROINTESTINAL: Abdomen soft, +BS EXTREMITIES: No cyanosis, + edema. MUSCULOSKELETAL: Adequate muscle tone. NEUROLOGICAL: Sedated Assessment/Plan Assessment 1. Non-small cell lung carcinoma, now appears to have metastatic disease. He first presented in January 2014 with a lung mass in the right upper lobe. He received stereotactic radiation to the lung mass. He later developed mediastinal adenopathy and was treated with radiation with concurrent chemotherapy followed by consolidation chemotherapy which he completed in October 2014. He had a good response. He was supposed to follow-up in the oncology clinic after he came back from [place] last Fall, but he did not make the appointment. He now presents in respiratory failure. CT angiogram did not show any pulmonary embolism; however, there is mass-like consolidation at the right apex and right perihilar region consistent with recurrent bronchogenic carcinoma. There is diffuse bone lesion in the ribs and thoracic spine. There are also metastatic lesions in the liver. This is most consistent with metastatic lung cancer. His prognosis is very poor. He had received full radiation to the thorax and I do not think he could receive anymore radiation to the chest. Treatment will be palliative in nature. However, he is currently on the ventilator and he is not a candidate for palliative chemotherapy. Cytology form thoracentesis is pending. 2. Respiratory failure due to progression of lung cancer as above. 3. Leukocytosis consistent with leukemoid reaction. 4. Anemia and thrombocytopenia possibly due to his acute illness and marrow suppression. He may also have a consumptive process like DIC. 5. Atrial fibrillation with rapid ventricular rate. 6. Sepsis, currently on antibiotics. Plan Plan: 1. The patient has now developed metastatic cancer and he is not a candidate for palliative chemotherapy at this time. I would recommend considering hospice care. Discussed with palliative care meds. Prognosis is very poor. 2. Await cytology result from the pleural fluid. Jeff Benedict MD February 02, 2017 12:08
[2017-02-02] MEDS: methylPREDNISolone SOD SUCC 40 MG/1 ML VIAL IV PUSH SCH ×2 (14:15→20:43)
[2017-02-02] MEDS: ARTIFICIAL TEARS OPTH SOLN 15 ML BTL EACH EYE SCH ×2 (15:36→20:43)
[2017-02-02] MEDS: VASOPRESSIN INJ 40 UNITS in DEXTROSE 5% IN WATER 100ML INJ 98 ML IV SCH ×2 (16:45)
[2017-02-02] MEDS: CHLORHEXIDINE 0.12% (ORAL KIT) 15 ML CUP MT SCH (20:44)
[2017-02-03] VITALS (23 sets, daily range): BP systolic 103–160; BP diastolic 38–68; PULSE 49–71; RESP 16–24; TEMP 96.9–97.9; O2SAT 97–100
[2017-02-03] MEDS: RESP: ALBUTEROL 2.5 MG/IPRATROPIUM 0.5 MG NEB (SCH) INH ×7 (00:15→23:21)
[2017-02-03] MEDS: AZITHROMYCIN INJ 500 MG in SODIUM CHLOR 0.9% 250 ML INJ 250 ML IV SCH (03:15)
[2017-02-03] MEDS: INSULIN NovoLIN REGULAR SUPPLEMENTAL SCALE SQ SCH ×3 (03:15→12:00)
[2017-02-03] MEDS: CHLORHEXIDINE GLUCONATE 2 % 1 PACK (2 CLOTHS)(taper/protocol) TOPICAL SCH (04:00)
[2017-02-03] MEDS: CEFEPIME INJ 2,000 MG in SODIUM CHLORIDE 0.9% INJ 100 ML IV SCH (05:35)
[2017-02-03] MEDS: methylPREDNISolone SOD SUCC 40 MG/1 ML VIAL IV PUSH SCH (05:36)
[2017-02-03] MEDS: ARTIFICIAL TEARS OPTH SOLN 15 ML BTL EACH EYE SCH ×3 (05:36→20:40)
[2017-02-03 05:40] LABS: AUTOMATED NEUTROPHIL # 10.2 TH/MM3 (1.8-7.7); BASOPHIL % 0.1 % (0.0-2.0); EOSINOPHIL # 0.1 TH/MM3 (0-0.4); EOSINOPHIL % 0.7 % (0.0-4.0); HEMATOCRIT 25.4 % (39.0-51.0); LYMPH % 1.8 % (9.0-44.0); LYMPHOCYTE # 0.2 TH/MM3 (1.0-4.8); MEAN CELL VOLUME 86.1 FL (80.0-100.0); MEAN CORPUSCULAR HEMOGLOBIN 29.4 PG (27.0-34.0); MEAN CORPUSCULAR HGB CONC 34.1 % (32.0-36.0); MONO % 2.7 % (0.0-8.0); NEUT % 94.7 % (16.0-70.0); PLATELET COUNT 80 TH/MM3 (150-450); RED BLOOD COUNT 2.94 MIL/MM3 (4.50-5.90); RED CELL DISTRIBUTION WIDTH 15.8 % (11.6-17.2); WHITE BLOOD COUNT 10.8 TH/MM3 (4.0-11.0)
[2017-02-03] MEDS: fentaNYL 2,500 MCG/NS 250 ML IV SCH ×2 (05:40→20:40)
[2017-02-03] MEDS: PHENYLEPHRINE INJ 40 MG in DEXTROSE 5% IN WATE 500 ML INJ 496 ML IV SCH ×4 (05:42→08:54)
[2017-02-03 05:48] LABS: HEMO FLAGS AUTO DIFF
[2017-02-03 05:54] LABS: INTERNATIONAL NORMALIZED RATIO 1.1 RATIO
[2017-02-03 05:59] LABS: BICARBONATE 23.3 MEQ/L (21.0-32.0); MAGNESIUM 1.3 MG/DL (1.5-2.5); POTASSIUM 3.3 MEQ/L (3.5-5.1)
[2017-02-03] MEDS ORDERED: LEVOTHYROXINE SODIUM 100 MCG VIAL IV PUSH SCH (06:00)
[2017-02-03 06:01] LABS: CALCIUM-PROTEIN CORRECTED 8.2 MG/DL (8.5-10.1); TOTAL BILIRUBIN ADULT 0.4 MG/DL (0.2-1.0)
[2017-02-03 07:32] LABS: BANDS 13 % (0-6); BASOPHILS 1 % (0-2); NEUTROPHIL # MANUAL DIFF 10.3 TH/MM3 (1.8-7.7); POLYS (SEG NEUTROPHILS) 82 % (16-70); WBC DIFF SAMPLE 100
[2017-02-03 07:33] LABS: ACANTHOCYTES OCC (NORMAL); KERATOCYTES OCC (NORMAL); OVALOCYTES 1+ (NORMAL); PLATELET ESTIMATE SMEAR LOW (NORMAL); PLATELET MORPHOLOGY NORMAL (NORMAL); SCAN/DIFF FINAL DIFF MANUAL
[2017-02-03] MEDS: RESP: BUDESONIDE 0.5 MG/2 ML NEB NEB SCH ×2 (07:47→20:18)
--- NOTE | 2017-02-03 07:57 | HHI.CCPN ---
Subjective Remarks/Hospital Course 81yM with history of lung cancer s/p chemo and radiation, the last treatment was well over a year ago, who presents with a slowly progressive shortness of breath and sputum production over the last few weeks. He denies any fever or chills. denies dyspnea on exertion, but endorses significant progressive fatigue. He and his family state that the intent of his cancer treatment was curative and not palliative, and he does not currently know if his cancer is in remission or not. In the emergency department, he was significantly dyspneic and in respiratory distress. He was placed on BiPAP with improvement in his symptoms. he was also found to be in new-onset Atrial fibrillation with rapid ventricular response. He was started on a diltiazem drip for this. His chest xray demonstrates complete opacification of the right lung field with some element of mediastinal shift towards the right. His laboratory data is significant for a wbc 34k, plt 148, Na 132, Cr 0.93, alk phos 369, BNP 175, lactate 2.8. negative troponin. Critical Care medicine is consulted to evaluate and manage his hypoxic respiratory failure. 5: central line placed overnight. this morning, on 3 vasopressors. toes with cyanosis. very ill at this time. intubated yesterday afternoon. clinically declining. chest tube with 1100 out yesterday, serous. Even after yesterday's long conversation prior to intubation about code status and the patient will likely not come off the ventilator if intubated and will likely of lung cancer soon, patient's with dementia presents today with minimal if any knowledge of yesterday's conversation, and asks, "can the breathing tube come out today?" palliative following. I share many of the daughter's concerns that Mr. Hoang may not be capacitated to fully understand and make informed medical decisions for him. 02/02: Afebrile. Received 5 L normal saline overnight. In sinus tachycardia. Eyes are open. Minimal output of chest tube overnight. Tube feeds not been started yet. Subjective: 02/03: Afebrile. Noted change to DNR status yesterday. Currently normal sinus rhythm. Eyes are open. Objective Vital Signs Date Time Temp Pulse Resp B/P Pulse Ox O2 Delivery O2 Flow Rate FiO2 02/03/17 06:00 69 02/03/17 04:51 100 45 02/03/17 00:00 96.9 24 157/68 01/31/17 07:20 BiPAP Intake and Output 02/02/17 02/02/17 02/03/17 08:00 16:00 00:00 Intake Total 823 ml 2015 ml 1863 ml Output Total 650 ml 255 ml 150 ml Balance 173 ml 1760 ml 1713 ml Result Diagram: 02/03/17 0526 02/03/17 0526 Other Results Microbiology Date/Time Procedure Status Source Growth 02/01/17 02:40 Gram Stain - Final Resulted Sputum Endotracheal 02/01/17 02:40 Sputum Culture - Preliminary Resulted Sputum Endotracheal LIGHT GROWTH NORMAL RESPIRATORY CARLITA... 01/31/17 18:00 Legionella Antigen - Final Complete Urine Catheterized Urine PRESUMPTIVE NEGATIVE FOR LEGIONELLA P... 01/31/17 18:00 Streptococcus pneumoniae Antigen (M - Final Complete Urine Catheterized Urine PRESUMPTIVE NEGATIVE FOR STREPTOCOCCU... 01/31/17 12:45 Fungal Smear - Final Resulted Fluid Pleural Fluid NO FUNGAL ELEMENTS SEEN. 01/31/17 12:45 Fungal Culture Resulted Fluid Pleural Fluid Pending 01/31/17 12:45 Acid Fast Stain - Final Resulted Fluid Pleural Fluid NO ACID FAST BACILLI SEEN 01/31/17 12:45 Mycobacterial Culture Resulted Fluid Pleural Fluid Pending 01/31/17 05:35 Aerobic Blood Culture - Preliminary Resulted Blood Peripheral NO GROWTH IN 2 DAYS 01/31/17 05:35 Anaerobic Blood Culture - Preliminary Resulted Blood Peripheral NO GROWTH IN 2 DAYS Imaging Last Impressions Chest X-Ray 02/02/17 0600 Signed Impressions: Service Date/Time: Thursday, February 02, 2017 03:49 - CONCLUSION: 1. There is no evidence of pneumothorax. There has been no significant change when compared to the prior exam. 2. Endotracheal tube at the christina as above Aidan Razo MD CT Angiography 01/31/17 0000 Signed Impressions: Service Date/Time: Tuesday, January 31, 2017 07:34 - CONCLUSION: 1. No evidence for pulmonary embolism. 2. Masslike consolidation right apex and right perihilar region, is consistent with bronchogenic carcinoma. 3. Diffuse sclerotic metastasis. 4. There are metastatic lesions to the liver Jani Gilman MD Objective Remarks GENERAL: 81-year-old male, critically ill currently resting in bed in no acute distress SKIN: Warm and dry. No rash. Cyanotic toes bilaterally HEAD: Atraumatic. Normocephalic. EYES: Pupils equal and round about 2-3 mm bilaterally and reactive. No scleral icterus. No injection or drainage. ENT: No nasal bleeding or discharge. Mucous membranes pink and moist. NECK: Trachea midline. No JVD. CARDIOVASCULAR: Tachycardic, RR. S1, S2 no S4. Without murmur. RESPIRATORY: Coarse crackles appreciated throughout the right lung sol. Diminished. GASTROINTESTINAL: Abdomen soft, non-tender, nondistended. Hypoactive bowel sounds are appreciated MUSCULOSKELETAL: Extremities 1+ peripheral edema. No obvious deformities. NEUROLOGICAL: Arousable on the ventilator. Opens eyes. Minimal gag. Moves all 4 extremities spontaneous. Not following commands. Date of Insertion: February 01, 2017 Line: Central Venous Catheter Side: Right Location: Subclavian A/P Assessment and Plan Neuro/Psych: Metabolic Encephalopathy Check ammonia level altered mental status Currently on propofol drip at 30 mg/kg/m/fentanyl drip at 100 mg an hour for sedation/analgesia while intubated goal RASS -2. Daily sedation vacation Holding Mirtzapine 7.5 mg by mouth at bedtime When stable consider check CT head rule out metastases Respiratory: Acute hypoxic respiratory failure Community-acquired pneumonia History of lung cancer, recurrent, stage IV = Right pleural effusion History COPD [facility] 16550/1.3/50 Ventilator bundle Duo nebs every 4 hours with albuterol breakthrough 2 every hours when necessary Wean FiO2 to keep saturation greater than equal to 92% CT PE 01/31 right apex/perihilar masslike consolidation. Left upper lobe pulmonary nodule 7 mm. Severe centrilobular emphysema. 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 CHEST x-ray in a.m. Cardiovascular: New-onset atrial fibrillation with rapid ventricular response - currently sinus tachycardia Septic Shock Dyslipidemia --Patient is currently on vasopressin 0.04 units per minute/Robert-Synephrine to maintain MAP greater than 65 --Currently bicarbonate drip at 150 cc an hour with relative acidosis. Discontinued today --2d echo 01/31: Ejection fraction 60%. No regional wall motion abnormality. Small pericardial effusion Holding lovastatin 80 mg by mouth daily/home medication for dyslipidemia. Resume as clinically indicated Currently on Flotrack with normal sinus rhythm with adequate cardiac output and SVV Renal: Trend creatinine with daily BMPs -- Strict I/Os FEN/GI: Acute protein calorie malnutritionmoderate Hyponatremia Hypo-magnesium Hypopotassemia Start Jevity 1.5 goal 50 cc an hour Protonix for GI prophylaxis Colace twice a day/Senokot daily for bowel regimen Replacing electrolytes as clinically indicated Follow BMP in a.m. 3 g mag sulfate IV, potassium chloride 40 mEq IV 1 Heme: Normocytic anemia Thrombocytopenia Non-small cell carcinoma lung- right upper lobe with metastases to bone/ribs Monitor CBC daily. Follow trends. Noted downward trend platelets and white blood cell count See pulmonary. Dr. Benedict/oncology is following. Not a candidate for palliative radiation therapy due to intubation. Regimens palliative care. Cytology from pleural fluid pending Palliative care is following ID: Community acquired pneumonia Possible postobstructive pneumonia Continue cefepime and azithromycin day #4 Pertinent cultures 02/01 - sputum - Gram stain negative. 01/31 - blood cultures 2 - no growth 01/31 - urine - no growth to date 01/31 - urine Legionella and pneumococcal antigens negative Endocrine: Hyperglycemia of critical illness Chronic prednisone use -- SSI, medium scale, every 6 hours - On prednisone 100 mg daily at home. Switch Solu-Medrol 40 IV every 8 hours Prophylaxis: GI Prophylaxis Protonix 40 mg IV 24 hours DVT Prophylaxis -- SCDs Lovenox 40 mg subcutaneous every 24 Lines: right IJ CVL 01/31 --Left radial arterial line 02/01 Critical Care: The total critical care time was 45 minutes. Time to perform other separately billable procedures was not included in the critical care time. Edmund Reyes MD February 03, 2017 07:57
--- NOTE | 2017-02-03 07:57 | PD.ONC.PN ---
Subjective Subjective Remarks Sedated on vent. Objective Data Date Time Temp Pulse Resp B/P Pulse Ox O2 Delivery O2 Flow Rate FiO2 02/03/17 07:47 100 35 02/03/17 06:00 69 02/03/17 04:51 100 45 02/03/17 04:00 71 02/03/17 04:00 50 02/03/17 02:00 67 02/03/17 00:15 100 45 02/03/17 00:00 66 02/03/17 00:00 50 02/03/17 00:00 96.9 67 24 157/68 100 02/02/17 22:00 67 02/02/17 20:26 100 50 02/02/17 20:00 68 02/02/17 20:00 96.6 67 24 191/83 100 02/02/17 20:00 50 02/02/17 18:00 68 02/02/17 17:01 100 50 02/02/17 16:00 69 02/02/17 16:00 97.9 69 24 169/70 100 02/02/17 16:00 50 02/02/17 14:00 72 02/02/17 12:00 98.1 67 24 152/59 100 02/02/17 12:00 50 02/02/17 12:00 67 02/02/17 11:39 100 80 02/02/17 10:00 134 02/02/17 08:48 100 80 02/02/17 08:00 143 02/02/17 08:00 100 02/02/17 08:00 98.3 143 16 101/46 93 Automatic Cuff 02/02/17 08:00 84 101/46 Automatic Cuff 02/03/17 02/03/17 02/03/17 07:00 15:00 23:00 Intake Total 1807 ml Output Total 100 ml Balance 1707 ml Result Diagram: 02/03/17 0526 02/03/17 0526 Laboratory Results Laboratory Tests Test 02/02/17 02/02/17 02/03/17 08:21 11:56 05:26 Blood Gas Puncture Site NICA ART LINE Blood Gas Patient Temperature 98.6 98.6 Blood Gas HCO3 12 mmol/L 15 mmol/L Blood Gas Base Excess -15.8 mmol/L -9.9 mmol/L Blood Gas Oxygen Saturation 98 % 98 % Arterial Blood pH 7.12 7.36 Arterial Blood Partial 38 mmHg 27 mmHg Pressure CO2 Arterial Blood Partial 304 mmHg 310 mmHg Pressure O2 Arterial Blood Oxygen Content 14.8 Vol % 13.9 Vol % Arterial Blood 1.0 % 1.4 % Carboxyhemoglobin Arterial Blood Methemoglobin 1.0 % 0.9 % Blood Gas Hemoglobin 10.2 G/DL 9.6 G/DL Oxygen Delivery Device VENTILATOR VENTILATOR Blood Gas Ventilator Setting SEE COMMENTS Blood Gas Inspired Oxygen 100 % 80 % White Blood Count 10.8 TH/MM3 Red Blood Count 2.94 MIL/MM3 Hemoglobin 8.7 GM/DL Hematocrit 25.4 % Mean Corpuscular Volume 86.1 FL Mean Corpuscular Hemoglobin 29.4 PG Mean Corpuscular Hemoglobin 34.1 % Concent Red Cell Distribution Width 15.8 % Platelet Count 80 TH/MM3 Mean Platelet Volume 9.2 FL Neutrophils (%) (Auto) 94.7 % Lymphocytes (%) (Auto) 1.8 % Monocytes (%) (Auto) 2.7 % Eosinophils (%) (Auto) 0.7 % Basophils (%) (Auto) 0.1 % Neutrophils # (Auto) 10.2 TH/MM3 Lymphocytes # (Auto) 0.2 TH/MM3 Monocytes # (Auto) 0.3 TH/MM3 Eosinophils # (Auto) 0.1 TH/MM3 Basophils # (Auto) 0.0 TH/MM3 CBC Comment AUTO DIFF Differential Total Cells 100 Counted Neutrophils % (Manual) 82 % Band Neutrophils % 13 % Lymphocytes % 3 % Monocytes % 1 % Basophils % 1 % Neutrophils # (Manual) 10.3 TH/MM3 Differential Comment FINAL DIFF MANUAL Platelet Estimate LOW Platelet Morphology Comment NORMAL Ovalocytes 1+ Acanthocytes OCC Keratocytes OCC Prothrombin Time 12.0 SEC Prothromb Time International 1.1 RATIO Ratio Activated Partial 52.0 SEC Thromboplast Time Fibrinogen 473 mg/dL Sodium Level 129 MEQ/L Potassium Level 3.3 MEQ/L Chloride Level 94 MEQ/L Carbon Dioxide Level 23.3 MEQ/L Anion Gap 12 MEQ/L Blood Urea Nitrogen 29 MG/DL Creatinine 1.27 MG/DL Estimat Glomerular Filtration 54 ML/MIN Rate Random Glucose 226 MG/DL Lactic Acid Level 2.9 mmol/L Calcium Level 6.7 MG/DL Protein Corrected Calcium 8.2 MG/DL Phosphorus Level 2.8 MG/DL Magnesium Level 1.3 MG/DL Total Bilirubin 0.4 MG/DL Aspartate Amino Transf 15 U/L (AST/SGOT) Alanine Aminotransferase 11 U/L (ALT/SGPT) Alkaline Phosphatase 177 U/L Total Creatine Kinase 122 U/L Total Protein 4.2 GM/DL Albumin 1.5 GM/DL Culture Results Microbiology Date/Time Procedure Status Source Growth 01/31/17 12:45 Gram Stain - Final Resulted Fluid Pleural Fluid 01/31/17 12:45 Body Fluid Culture - Preliminary Resulted Fluid Pleural Fluid NO GROWTH IN 48 HOURS. 01/31/17 12:45 Acid Fast Stain - Final Resulted Fluid Pleural Fluid NO ACID FAST BACILLI SEEN 01/31/17 12:45 Mycobacterial Culture Resulted Fluid Pleural Fluid Pending 01/31/17 12:45 Fungal Smear - Final Resulted Fluid Pleural Fluid NO FUNGAL ELEMENTS SEEN. 01/31/17 12:45 Fungal Culture Resulted Fluid Pleural Fluid Pending 01/31/17 18:00 Legionella Antigen - Final Complete Urine Catheterized Urine PRESUMPTIVE NEGATIVE FOR LEGIONELLA P... 01/31/17 18:00 Streptococcus pneumoniae Antigen (M - Final Complete Urine Catheterized Urine PRESUMPTIVE NEGATIVE FOR STREPTOCOCCU... 02/01/17 02:40 Gram Stain - Final Resulted Sputum Endotracheal 02/01/17 02:40 Sputum Culture - Preliminary Resulted Sputum Endotracheal LIGHT GROWTH NORMAL RESPIRATORY CARLITA... Administered Medications Medications (Trade) Dose Ordered Sig/Garcia Route PRN Reason Start Time Stop Time Status Last Admin Dose Admin Diltiazem HCl/ Sodium Chloride (Cardizem Inj/NS Inj) 125 ml @ 0 mls/hr TITRATE IV 01/31/17 05:30 01/31/17 05:44 Pantoprazole Sodium (Protonix Inj) 40 mg DAILY IV 01/31/17 09:00 02/02/17 09:24 Enoxaparin Sodium 40 mg 40 mg Q24H SQ 01/31/17 08:00 02/02/17 09:24 Cefepime HCl 2000 mg/Sodium Chloride 100 ml @ 200 mls/hr Q8H IV 01/31/17 14:00 02/03/17 05:35 Azithromycin 500 mg/Sodium Chloride 250 ml @ 250 mls/hr Q24H IV 02/01/17 05:00 02/03/17 03:15 Phenylephrine HCl/ Dextrose (Neosynephrine Inj/D5W 500 ml Inj) 500 ml @ 0 mls/hr TITRATE IV 01/31/17 12:00 02/03/17 05:42 Chlorhexidine Gluconate 3 pack 3 pack DAILY@04 TOPICAL 02/01/17 04:00 02/05/17 04:01 02/03/17 04:00 Fentanyl Citrate 250 ml @ 0 mls/hr TITRATE IV 01/31/17 18:15 02/03/17 05:40 Vasopressin/ Dextrose (Pitressin Inj/ D5W 100 ml Inj) 100 ml @ 1.5 mls/hr Q24H IV 01/31/17 21:36 02/02/17 16:45 Levothyroxine Sodium (Synthroid Inj) 25 mcg DAILY@06 IV PUSH 02/03/17 06:00 02/03/17 05:35 Insulin Human Regular (NovoLIN R SUPPLEMENTAL SCALE) 1 Q4HR SQ 02/02/17 12:00 02/03/17 03:15 Docusate Sodium (Colace Liq) 100 mg Q12HR PO 02/02/17 09:00 02/02/17 20:43 Sennosides (Senna Liq) 8.8 mg DAILY PO 02/02/17 09:00 02/02/17 09:23 Methylprednisolone Sodium Succinate 40 mg 40 mg Q8HR IV PUSH 02/02/17 14:00 02/03/17 05:36 Sodium Bicarbonate/ Sterile Water (Sodium Bicarbonate 8.4% Inj/Sterile Water For Inj) 1,000 ml @ 150 mls/hr Q6H40M IV 02/02/17 10:00 02/03/17 15:00 02/02/17 23:49 Chlorhexidine Gluconate 15 ml 15 ml BID@08,20 MT 02/02/17 20:00 02/02/17 20:44 Propofol (Diprivan 1000 Mg/100ml Inj) 100 ml @ 0 mls/hr TITRATE IV 02/02/17 09:00 02/02/17 16:31 Artificial Tears (Tears Naturale Opth Soln) 1 drop Q8HR EACH EYE 02/02/17 14:00 02/03/17 05:36 Objective Remarks GENERAL: Sedated. SKIN: Warm and dry. HEAD: Normocephalic. EYES: No scleral icterus. No injection or drainage. NECK: Supple, trachea midline. No JVD or lymphadenopathy. LYMPHATIC: No adenopathy. CARDIOVASCULAR: Regular rate and rhythm without murmurs. RESPIRATORY: Breath sounds decreased right lung. Vent assisted. GASTROINTESTINAL: Abdomen soft, non-tender, nondistended. EXTREMITIES: No cyanosis, or edema. MUSCULOSKELETAL: Adequate muscle tone. NEUROLOGICAL: Sedated. Assessment/Plan Assessment 1. Non-small cell lung carcinoma, now appears to have metastatic disease. He first presented in January 2014 with a lung mass in the right upper lobe. He received stereotactic radiation to the lung mass. He later developed mediastinal adenopathy and was treated with radiation with concurrent chemotherapy followed by consolidation chemotherapy which he completed in October 2014. He had a good response. He was supposed to follow-up in the oncology clinic after he came back from [place] last Fall, but he did not make the appointment. He now presents in respiratory failure. CT angiogram did not show any pulmonary embolism; however, there is mass-like consolidation at the right apex and right perihilar region consistent with recurrent bronchogenic carcinoma. There is diffuse bone lesion in the ribs and thoracic spine. There are also metastatic lesions in the liver. This is most consistent with metastatic lung cancer. His prognosis is very poor. He had received full radiation to the thorax and I do not think he could receive anymore radiation to the chest. Treatment will be palliative in nature. However, he is currently on the ventilator and he is not a candidate for palliative chemotherapy. Cytology form thoracentesis is pending. 2. Respiratory failure due to progression of lung cancer as above. 3. Leukocytosis consistent with leukemoid reaction. 5/4 WBC trended down to normal. 4. Anemia and thrombocytopenia possibly due to his acute illness and marrow suppression. He may also have a consumptive process like DIC. 5/4 platelet stabilized. Fibrinogen elevated. 5. Atrial fibrillation with rapid ventricular rate. 6. Sepsis, currently on antibiotics. Plan Plan: 1. The patient has now developed metastatic cancer and he is not a candidate for palliative chemotherapy at this time. I would recommend considering hospice care. Palliative care has been talking to the family. Prognosis is very poor. 2. Await cytology result from the pleural fluid. Jeff Benedict MD February 03, 2017 07:57
[2017-02-03] MEDS: SODIUM BICARBONATE 8.4% INJ 150 MEQ in WATER STERILE FOR INJ 850 ML IV SCH ×2 (08:51→12:40)
[2017-02-03] MEDS: MAGNESIUM SULFATE 1 GM PREMIX 100 ML IV SCH ×3 (08:52→10:54)
[2017-02-03] MEDS: NUTRISOURCE FIBER POWDER 1 PACK G-TUBE SCH (08:53)
[2017-02-03] MEDS: PANTOPRAZOLE SODIUM 40 MG VIAL IV SCH (08:53)
[2017-02-03] MEDS: ENOXAPARIN SODIUM 40 MG/0.4 ML SYRINGE SQ SCH (08:54)
[2017-02-03] MEDS: CHLORHEXIDINE 0.12% (ORAL KIT) 15 ML CUP MT SCH (08:54)
[2017-02-03] MEDS: PROPOFOL 1000 MG/100 ML INJ 100 ML IV SCH ×2 (08:56→20:40)
[2017-02-03] MEDS: DOCUSATE SODIUM 100 MG/10 ML UDC PO SCH (08:56)
[2017-02-03] MEDS: SENNOSIDES SYRUP 8.8 MG/5 ML CUP PO SCH (08:57)
[2017-02-03] MEDS ORDERED: POTASSIUM CHLOR 40 MEQ PREMIX 100 ML IV ONE (09:00)
[2017-02-03] MEDS ORDERED: SODIUM CHLORIDE 1 GRAM TAB PO ONE (09:00)
[2017-02-03] MEDS: VASOPRESSIN INJ 40 UNITS in DEXTROSE 5% IN WATER 100ML INJ 98 ML IV SCH ×2 (10:48)
--- NOTE | 2017-02-03 12:06 | HHI.HCPN ---
Reason for visit a. To assist with evaluation and management of symptoms including: dyspnea, anxiety, malnutrition b. To assist medical decision maker(s) with: better understanding of current medical conditions; weighing benefits/burdens of medical treatment options; making medical treatment decisions. (Aparna Louise) Subjective/Interval History Patient seen today to f/u on comfort, dyspnea, goals. I did receive a phone call from his daughter, Ladi, who is out of state and unable to travel here, requesting an update on her father. Discussed his intubation, pain control, sedation and current lab studies, but arranged a call for later today after physical assessment done. Though estranged from her family, she did give permission for me to inform her family that we were in contact with her. I did relay this information to the daughter, Lata, and the patient's [id number] , Zachary, who then re-established phone contact with her sister, Ladi. He remains intubated, sedated with no signs of dyspnea or discomfort. His tachycardia has resolved. Oxygen weaned to 35%, taking daily sedation vacations. Goals were discussed with Dr. Reyes that the family wanted no escalation of care to include no tube feeding and they wished comfort measures only, with continuation of mechanical ventilator. Spontaneous hand movement noted in right hand but no response to noxious stimuli. Investigations show light growth of normal respiratory philly in the sputum and presumptive negative for legionella and streptococcus in the urine culture. Labs show a PT of 12.0, APTT 52.0 and fibrinogen of 473, Hgb has decreased from 10.2 to 8.7 since yesterday with normalization of WBC from 19.7 to 10.8, and continued decrease in platelets from 148 on 01/31 to 80 today. Sodium remains low at 129 and potassium of 3.3 is being repleted. His renal function has declined with BUN increasing from 16 to 29 overnight and Cr from 0.92 to 1.27. Lactic acid remains elevated at 2.9. Magnesium is low at 1.3, total protein 4.2 and albumin 1.5. CCM managing medical care. Oncology, Dr. Benedict, following for blood dyscrasias and metastatic NSCLC, now s/ p stereotactic radiation to the lung mass with diffuse bone lesions in rib and T -spine as well as liver lesions. As he is on the ventilator, no palliative chemo can be used and he has received full radiation. Cytology is pending, pleural fluid shows no growth in 72 hrs, no fungal elements or acid fast bacilli seen seen. Blood dyscrasia differentials include leukemoid reaction vs. acute illness and marrow suppression vs. consumptive process like DIC. . (Aparna Louise) Family/friend interactions Met with daughter, Lata and other family. Also present PANCHITO Bailey. Family desires continued mechanical ventilation with comfort focused care. They desire to stop tube feeding, antibiotics. They desire continued Vaso and Robert at current doses without escalation of dosing. They desire continued Fentanyl and Propofol for comfort. Family hopes for peaceful on mech vent given spouse underlying dementia and confusion, inability to understand/remember conversations regarding medical condition, treatments and overall poor prognosis. All family in agreement patient would not want the process of dying artificially prolonged, however they are concerned about his spouse if mech ventilation and other obvious current treatments are withdrawn. Discussed with nurse, Avila and Dr. Reyes. Please DO NOT discuss in room with and Dianne ( daughter) at bedside. . (ELVIS ANGULO) Advance Directives Living Will: Completed, but not made available Health Care Surrogate: Completed, but not made available Durable Power of Pharmacy Buyer: Completed, but not made available (Aparna Louise) Objective Vital Signs Date Time Temp Pulse Resp B/P Pulse Ox O2 Delivery O2 Flow Rate FiO2 02/03/17 07:47 100 35 02/03/17 06:00 69 02/03/17 04:51 100 45 02/03/17 04:00 71 02/03/17 04:00 50 02/03/17 02:00 67 02/03/17 00:15 100 45 02/03/17 00:00 66 02/03/17 00:00 50 02/03/17 00:00 96.9 67 24 157/68 100 02/02/17 22:00 67 02/02/17 20:26 100 50 02/02/17 20:00 68 02/02/17 20:00 96.6 67 24 191/83 100 02/02/17 20:00 50 02/02/17 18:00 68 02/02/17 17:01 100 50 02/02/17 16:00 69 02/02/17 16:00 97.9 69 24 169/70 100 02/02/17 16:00 50 02/02/17 14:00 72 02/02/17 12:00 98.1 67 24 152/59 100 02/02/17 12:00 50 02/02/17 12:00 67 02/02/17 11:39 100 80 Intake & Output 02/03/17 02/03/17 07:00 19:00 Intake Total 3670 ml Output Total 250 ml Balance 3420 ml IV Total 3107 ml Tube Feeding 363 ml Other 200 ml Output Urine Total 250 ml # Bowel Movements 0 Physical Exam CONSTITUTIONAL/GENERAL: This is a thin, chronically ill-appearing patient. sedated on mech vent TUBES/LINES/DRAINS: Peripheral IVs LACF ,PIV left ankle, RIJ , Left radial arterial line, ETT, OGT, rt chest tube SKIN: No jaundice, rashes, or lesions. Several scattered areas Ecchymoses on upper extremities. No wounds seen anteriorly. Skin temperature appropriate. Not diaphoretic. CARDIOVASCULAR: Regular rhythm, controlled rate, NSR 60-70's. +JVD. Unable to palpate pedal pulses, feet cold/blue, finger tips cool/blue. RESPIRATORY/CHEST: Symmetric, unlabored resp on mech vent. Coarse air movement throughout, decreased air to basis.+ small rt chest tube, sm amt drainage. GASTROINTESTINAL: Abdomen soft,flat, nondistended. No palpable masses. No guarding. Bowel sounds hypoactive. OGT infusing Jevity 1.5 @ 50 ml/hr. NEUROLOGICAL: sedated on mech vent, non responsive to exam. PSYCHIATRIC: sedated, appearing comfortable. (Aparna Louise) Diagnostic Tests Laboratory Laboratory Tests Test 01/31/17 01/31/17 01/31/17 01/31/17 12:45 15:30 18:08 20:45 Pleural Fluid pH 8.0 Pleural Fluid WBC 84 /MM3 (0-10) Pleural Fluid RBC 8 /MM3 (0-0) Pleural Fluid Neutrophils 8 % Pleural Fluid Lymphocytes 55 % Pleural Fluid Monocytes 12 % Pleural Fluid Eosinophils 12 % Pleural Fluid Histiocytes 5 % Pleural Fluid Mesothelial 8 % Cells Pleural Fluid Total Protein 3.9 GM/DL Pleural Fluid LDH 72 U/L Pleural Fluid Glucose 98 MG/DL Pleural Fluid Amylase 385 U/L Lactic Acid Level 2.1 mmol/L (0.4-2.0) Troponin I 0.02 NG/ML 0.02 NG/ML (0.02-0.05) (0.02-0.05) Blood Gas Puncture Site LT RADIAL Blood Gas Patient Temperature 98.6 Blood Gas HCO3 19 mmol/L (22-26) Blood Gas Base Excess -6.3 mmol/L (-2-2) Blood Gas Oxygen Saturation 97 % (90-100) Arterial Blood pH 7.29 (7.380-7.420) Arterial Blood Partial 41 mmHg (38-42) Pressure CO2 Arterial Blood Partial 176 mmHg Pressure O2 (61-120) Arterial Blood Oxygen Content 17.2 Vol % (12.0-20.0) Arterial Blood 1.0 % (0-4) Carboxyhemoglobin Arterial Blood Methemoglobin 1.1 % (0-2) Blood Gas Hemoglobin 12.4 G/DL (12.0-16.0) Oxygen Delivery Device VENTILATOR Blood Gas Ventilator Setting [id number]/[id number]/[id number] Blood Gas Inspired Oxygen 100 % Test 02/01/17 02/01/17 02/02/17 02/02/17 05:10 05:35 05:00 08:21 White Blood Count 25.8 TH/MM3 19.7 TH/MM3 (4.0-11.0) (4.0-11.0) Red Blood Count 3.76 MIL/MM3 3.59 MIL/MM3 (4.50-5.90) (4.50-5.90) Hemoglobin 10.7 GM/DL 10.2 GM/DL (13.0-17.0) (13.0-17.0) Hematocrit 33.8 % 32.5 % (39.0-51.0) (39.0-51.0) Mean Corpuscular Volume 90.0 FL 90.5 FL (80.0-100.0) (80.0-100.0) Mean Corpuscular Hemoglobin 28.4 PG 28.4 PG (27.0-34.0) (27.0-34.0) Mean Corpuscular Hemoglobin 31.5 % 31.4 % Concent (32.0-36.0) (32.0-36.0) Red Cell Distribution Width 16.0 % 16.0 % (11.6-17.2) (11.6-17.2) Platelet Count 119 TH/MM3 82 TH/MM3 (150-450) (150-450) Mean Platelet Volume 8.5 FL 8.7 FL (7.0-11.0) (7.0-11.0) Sodium Level 128 MEQ/L 131 MEQ/L (136-145) (136-145) Potassium Level 4.0 MEQ/L 4.6 MEQ/L (3.5-5.1) (3.5-5.1) Chloride Level 99 MEQ/L 105 MEQ/L (98-107) (98-107) Carbon Dioxide Level 21.3 MEQ/L 17.7 MEQ/L (21.0-32.0) (21.0-32.0) Anion Gap 8 MEQ/L (5-15) 8 MEQ/L (5-15) Blood Urea Nitrogen 16 MG/DL (7-18) 16 MG/DL (7-18) Creatinine 0.88 MG/DL 0.92 MG/DL (0.60-1.30) (0.60-1.30) Estimat Glomerular Filtration 83 ML/MIN (>89) 79 ML/MIN (>89) Rate Random Glucose 181 MG/DL 108 MG/DL (74-106) (74-106) Calcium Level 7.1 MG/DL 7.0 MG/DL (8.5-10.1) (8.5-10.1) Protein Corrected Calcium 8.5 MG/DL 8.4 MG/DL (8.5-10.1) (8.5-10.1) Troponin I 0.03 NG/ML (0.02-0.05) Total Protein 4.6 GM/DL 4.5 GM/DL (6.4-8.2) (6.4-8.2) Blood Gas Puncture Site LT RADIAL NICA Blood Gas Patient Temperature 98.6 98.6 Blood Gas HCO3 18 mmol/L 12 mmol/L (22-26) (22-26) Blood Gas Base Excess -10.0 mmol/L -15.8 mmol/L (-2-2) (-2-2) Blood Gas Oxygen Saturation 97 % (90-100) 98 % (90-100) Arterial Blood pH 7.13 7.12 (7.380-7.420) (7.380-7.420) Arterial Blood Partial 55 mmHg (38-42) 38 mmHg (38-42) Pressure CO2 Arterial Blood Partial 156 mmHg 304 mmHg Pressure O2 (61-120) (61-120) Arterial Blood Oxygen Content 15.1 Vol % 14.8 Vol % (12.0-20.0) (12.0-20.0) Arterial Blood 1.0 % (0-4) 1.0 % (0-4) Carboxyhemoglobin Arterial Blood Methemoglobin 1.0 % (0-2) 1.0 % (0-2) Blood Gas Hemoglobin 10.8 G/DL 10.2 G/DL (12.0-16.0) (12.0-16.0) Oxygen Delivery Device VENTILATOR VENTILATOR Blood Gas Ventilator Setting PRVC/AC SEE COMMENTS Blood Gas Inspired Oxygen 60 % 100 % Test 02/02/17 02/03/17 11:56 05:26 Blood Gas Puncture Site ART LINE Blood Gas Patient Temperature 98.6 Blood Gas HCO3 15 mmol/L (22-26) Blood Gas Base Excess -9.9 mmol/L (-2-2) Blood Gas Oxygen Saturation 98 % (90-100) Arterial Blood pH 7.36 (7.380-7.420) Arterial Blood Partial 27 mmHg (38-42) Pressure CO2 Arterial Blood Partial 310 mmHg Pressure O2 (61-120) Arterial Blood Oxygen Content 13.9 Vol % (12.0-20.0) Arterial Blood 1.4 % (0-4) Carboxyhemoglobin Arterial Blood Methemoglobin 0.9 % (0-2) Blood Gas Hemoglobin 9.6 G/DL (12.0-16.0) Oxygen Delivery Device VENTILATOR Blood Gas Ventilator Setting Blood Gas Inspired Oxygen 80 % White Blood Count 10.8 TH/MM3 (4.0-11.0) Red Blood Count 2.94 MIL/MM3 (4.50-5.90) Hemoglobin 8.7 GM/DL (13.0-17.0) Hematocrit 25.4 % (39.0-51.0) Mean Corpuscular Volume 86.1 FL (80.0-100.0) Mean Corpuscular Hemoglobin 29.4 PG (27.0-34.0) Mean Corpuscular Hemoglobin 34.1 % Concent (32.0-36.0) Red Cell Distribution Width 15.8 % (11.6-17.2) Platelet Count 80 TH/MM3 (150-450) Mean Platelet Volume 9.2 FL (7.0-11.0) Neutrophils (%) (Auto) 94.7 % (16.0-70.0) Lymphocytes (%) (Auto) 1.8 % (9.0-44.0) Monocytes (%) (Auto) 2.7 % (0.0-8.0) Eosinophils (%) (Auto) 0.7 % (0.0-4.0) Basophils (%) (Auto) 0.1 % (0.0-2.0) Neutrophils # (Auto) 10.2 TH/MM3 (1.8-7.7) Lymphocytes # (Auto) 0.2 TH/MM3 (1.0-4.8) Monocytes # (Auto) 0.3 TH/MM3 (0-0.9) Eosinophils # (Auto) 0.1 TH/MM3 (0-0.4) Basophils # (Auto) 0.0 TH/MM3 (0-0.2) CBC Comment AUTO DIFF Differential Total Cells 100 Counted Neutrophils % (Manual) 82 % (16-70) Band Neutrophils % 13 % (0-6) Lymphocytes % 3 % (9-44) Monocytes % 1 % (0-8) Basophils % 1 % (0-2) Neutrophils # (Manual) 10.3 TH/MM3 (1.8-7.7) Differential Comment FINAL DIFF MANUAL Platelet Estimate LOW (NORMAL) Platelet Morphology Comment NORMAL (NORMAL) Ovalocytes 1+ (NORMAL) Acanthocytes OCC (NORMAL) Keratocytes OCC (NORMAL) Prothrombin Time 12.0 SEC (9.8-11.6) Prothromb Time International 1.1 RATIO Ratio Activated Partial 52.0 SEC Thromboplast Time (24.3-30.1) Fibrinogen 473 mg/dL (227-377) Sodium Level 129 MEQ/L (136-145) Potassium Level 3.3 MEQ/L (3.5-5.1) Chloride Level 94 MEQ/L (98-107) Carbon Dioxide Level 23.3 MEQ/L (21.0-32.0) Anion Gap 12 MEQ/L (5-15) Blood Urea Nitrogen 29 MG/DL (7-18) Creatinine 1.27 MG/DL (0.60-1.30) Estimat Glomerular Filtration 54 ML/MIN (>89) Rate Random Glucose 226 MG/DL (74-106) Lactic Acid Level 2.9 mmol/L (0.4-2.0) Calcium Level 6.7 MG/DL (8.5-10.1) Protein Corrected Calcium 8.2 MG/DL (8.5-10.1) Phosphorus Level 2.8 MG/DL (2.5-4.9) Magnesium Level 1.3 MG/DL (1.5-2.5) Total Bilirubin 0.4 MG/DL (0.2-1.0) Aspartate Amino Transf 15 U/L (15-37) (AST/SGOT) Alanine Aminotransferase 11 U/L (12-78) (ALT/SGPT) Alkaline Phosphatase 177 U/L (45-117) Total Creatine Kinase 122 U/L (39-308) Total Protein 4.2 GM/DL (6.4-8.2) Albumin 1.5 GM/DL (3.4-5.0) (Aparna Louise) Result Diagram: 02/03/1752502/03/17525 Microbiology Microbiology Date/Time Procedure Status Source Growth 01/31/17 12:45 Gram Stain - Final Complete Fluid Pleural Fluid 01/31/17 12:45 Body Fluid Culture - Final Complete Fluid Pleural Fluid NO GROWTH IN 72 HRS.--AEROBICALLY OR ... 01/31/17 12:45 Acid Fast Stain - Final Resulted Fluid Pleural Fluid NO ACID FAST BACILLI SEEN 01/31/17 12:45 Mycobacterial Culture Resulted Fluid Pleural Fluid Pending 01/31/17 12:45 Fungal Smear - Final Resulted Fluid Pleural Fluid NO FUNGAL ELEMENTS SEEN. 01/31/17 12:45 Fungal Culture Resulted Fluid Pleural Fluid Pending 01/31/17 18:00 Legionella Antigen - Final Complete Urine Catheterized Urine PRESUMPTIVE NEGATIVE FOR LEGIONELLA P... 01/31/17 18:00 Streptococcus pneumoniae Antigen (M - Final Complete Urine Catheterized Urine PRESUMPTIVE NEGATIVE FOR STREPTOCOCCU... 02/01/17 02:40 Gram Stain - Final Complete Sputum Endotracheal 02/01/17 02:40 Sputum Culture - Final Complete Sputum Endotracheal LIGHT GROWTH NORMAL RESPIRATORY PHILLY Procedures 01/31/17thoracentesis, pigtail catheter, intubation, central line (Aparna Louise) Assessment and Plan Disease Oriented Problem List: (1) Leukocytosis (2) Community acquired pneumonia (3) Acute respiratory failure with hypoxia (4) Lung malignancy (5) Atrial fibrillation, new onset Symptom Scale: (1) Dyspnea 0-10 Scale: Unable to quantify (None seen, stable on mechanical ventilation) Pertinent Non-Medical Issues Psychosocial:Patient lives at home with spouse, x 61 years. Has 1 brother, 2 sisters. Originally from [place], lived [place]. 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 Has 3 children, 3 girls. Spiritual: Legal:Patient is currently able to participate in decision-making. Indicates has advanced directive or possible DPOA document naming his , jennifer Guido as secondary. Requested copies of this documentation. Daughter Lata expresses concern that patient has had mental status deterioration, she suspects dementia process and patient does not remember information from one day to the other, she is concerned about the patient's ability to make informed decisions. Ethical issues impacting care: Important Contacts Spouse Keren Hoang [phone] Lata Yanez dtr [phone] Dianne Martinez dtr [phone] Nico Mann dtr (estranged) [phone] . Prognosis This patient was admitted for acute hypoxic respiratory failure. He has known history of COPD, as well as non-small cell lung cancer, diagnosed in 2013. He has completed chemotherapy, radiation. Appears to have new disease progression with liver metastasis, based on new imaging though I would defer to oncology for full prognosis relating to his disease progression (oncology following). He is currently ventilated receiving sedation, pain medication, antibiotics. Remains high-risk for further clinical deterioration, and complications. Code Status: No Code (Family requests no escalation of care.) Plan * Legal decision maker: Patient is now unable to participate in decision-making due to clinical condition. Had previously indicated has advanced directive or possible DPOA document naming his , jennifer Guido as secondary. Requested copies of this documentation--we have been unable to obtain copies at this point. Not clear that this POA includes healthcare decision making. Daughter Lata expressed concern that patient has had mental status deterioration, she suspects dementia process and patient does not remember information from one day to the other, she is concerned about the patient's ability to make informed decisions. Nursing, other staff members have witnessed 's repetitiveness, agitated behavior and forgetting conversations that took place. Palliative care has also noted the same behaviors, does not appear that would be able to make informed decision making. Per [place] statutes legally decision-making would fall to the spouse however given concern for her mental status, would then fall to majority of the patient's 3 adult daughters.Would be best to have shared decision making, SUPPORTED by majority of adult children. 02/02 All daughters have been spoken to by palliative, all 3 are in agreement with DNR, no further escalation of treatment. * Goals: Family meeting done 11:15 02/02. Met w 2 daughters, Lata and Meme, , bro in law, Zachary, @ length. still somewhat forgetful/some limited insight. Shared decision making - 2 daughters, + . They all elect DNR status, request NO FURTHER ESCALATION OF TX - NO additional invasive procedures, no additional cardiac meds,no increase in current pressors, no additional abx etc. They are NOT ready to discontinue tx or withdrawal however request no additional heroic or prolonging measures. In the coming days they may be open to ongoing discussions regarding withdrawal of artificial measures and comfort focus only. * CODE STATUS: DNR * SYMPTOMS: --Dyspnea-underlying COPD, lung cancer diagnosed 2014baseline shortness of breath, chronic cough. Presented for worsening shortness of breath. S/P thoracentesis, pigtail catheter 02/01. Intubated 02/01, on sedation, breathing comfortably. Would be difficult to wean off of mechanical vent due to multiple conditions --Malnutrition-poor appetite for the past couple weeks. Now with OG tube in place status post intubation. Family declining TF, requesting comfort measures with continued ventilator support. --Anxiety-high risk for given pulmonary diagnoses; dyspnea. intubated. Currently breathing comfortably on mechanical vent, sedated with fentanyl and propofol, appears comfortable at time of exam. * Palliative care will continue to follow during hospital course as condition evolves, to assist patient/decision-maker with understanding of medical conditions, weighing benefits/burdens of treatment options, for clarification of goals of treatment. Additionally will assist with any symptoms of palliative concern (Aparna Louise) Plan 02/03/17 2pm: Met with daughterLata and other family. Also present PANCHITO Bailey. Family desires continued mechanical ventilation with comfort focused care. They desire to stop tube feeding, antibiotics. They desire continued Vaso and Robert at current doses without escalation of dosing. They desire continued Fentanyl and Propofol for comfort. Family hopes for peaceful on mech vent given spouse underlying dementia and confusion, inability to understand/ remember conversations regarding medical condition, treatments and overall poor prognosis. All family in agreement patient would not want the process of dying artificially prolonged, however they are concerned about his spouse if mech ventilation and other obvious current treatments are withdrawn. Discussed with nurse, Avila and Dr. Reyes. Please DO NOT discuss in room with and Noemi ( daughter) at bedside. . (ELVIS ANGULO) Attestation To help prompt me to consider important information that might be impacting today's encounter and assessment, information from prior notes written by myself or my colleagues may have been "brought forward" into today's note. My signature on this note, however, is an attestation that I personally performed the exam, history, and/or decision-making noted today, and, unless otherwise indicated, the interactions with patient, family, and staff as well as the review of records all occurred today. I also attest that the listed assessment and stated plan reflect my best clinical judgment today based on the combination of historical information, prior notes, and today's exam/ interactions. When time spent is documented, it refers only to time spent today by the signer, or if indicated, combined time spent today by collaborating physician/nurse practitioner. (Aparna Louise) Collaborating MD Comments Patient seen with PANCHITO Bailey. Agree with her assessment and plan. Met with family who desires comfort focused care with mech vent, no further escalation of care. They request conversation regarding goals be discussed with Lata outside the room. (ELVIS ANGULO) Aparna Louise February 03, 2017 12:06 pm ELVIS ANGULO February 03, 2017 2:10 pm
[2017-02-04] VITALS (25 sets, daily range): BP systolic 105–152; BP diastolic 47–111; PULSE 59–72; RESP 16; TEMP 97.2–98; O2SAT 87–100
[2017-02-04] MEDS: PHENYLEPHRINE INJ 40 MG in DEXTROSE 5% IN WATE 500 ML INJ 496 ML IV SCH ×2 (02:17)
[2017-02-04] MEDS: fentaNYL 2,500 MCG/NS 250 ML IV SCH (02:18)
[2017-02-04] MEDS: CHLORHEXIDINE GLUCONATE 2 % 1 PACK (2 CLOTHS)(taper/protocol) TOPICAL SCH (02:18)
--- NOTE | 2017-02-04 04:49 | RADRPT ---
EXAM DATE/TIME: 02/04/2017 03:25 [facility] COMPARISON: CHEST SINGLE AP, February 02, 2017, 3:49. INDICATIONS : Evalaute for respiratory failure. MEDICAL HISTORY : None. SURGICAL HISTORY : None. ENCOUNTER: Subsequent ACUITY: 4 - 6 days PAIN SCORE: Non-responsive. LOCATION: chest FINDINGS: A single view of the chest demonstrates improving minimal left basal density. Diffuse pleural-parench ymal density throughout the right lung. Endotracheal tube seen with tip 4 cm above the christina. Nasoga stric tube and right subclavian central line in stable position. Osseous structures are intact. CONCLUSION: Diffuse pleural-parenchymal density throughout the right lung, unchanged. Minimal left basilar densit y with improvement on current study. Jani Gilman MD on February 04, 2017 at 4:46 Board Certified Radiologist. This report was verified electronically.
[2017-02-04] MEDS: RESP: ALBUTEROL 2.5 MG/IPRATROPIUM 0.5 MG NEB (SCH) INH (04:56)
[2017-02-04] MEDS: VASOPRESSIN INJ 40 UNITS in DEXTROSE 5% IN WATER 100ML INJ 98 ML IV SCH ×2 (05:36)
[2017-02-04] MEDS: ARTIFICIAL TEARS OPTH SOLN 15 ML BTL EACH EYE SCH (05:38)
[2017-02-04] MEDS: PROPOFOL 1000 MG/100 ML INJ 100 ML IV SCH (05:40)
--- NOTE | 2017-02-04 08:29 | PD.ONC.PN ---
Subjective Subjective Remarks Sedated on vent. Family has decided on no escalating care. Objective Data Date Time Temp Pulse Resp B/P Pulse Ox O2 Delivery O2 Flow Rate FiO2 02/04/17 06:00 65 02/04/17 04:57 100 35 02/04/17 04:00 35 02/04/17 04:00 97.2 63 16 143/66 100 02/04/17 04:00 62 02/04/17 02:00 62 02/04/17 01:41 100 35 02/04/17 00:00 35 02/04/17 00:00 64 02/04/17 00:00 97.5 64 16 152/56 100 02/03/17 22:14 100 35 02/03/17 22:00 66 02/03/17 20:18 100 35 02/03/17 20:00 66 02/03/17 20:00 97.4 66 16 160/59 100 02/03/17 20:00 35 02/03/17 18:00 69 02/03/17 17:06 100 35 02/03/17 16:00 50 02/03/17 16:00 62 02/03/17 16:00 62 16 139/50 100 02/03/17 16:00 97.5 02/03/17 15:00 56 17 112/40 100 02/03/17 14:00 57 02/03/17 14:00 57 16 127/44 97 02/03/17 13:50 99 35 02/03/17 13:00 49 16 103/38 100 02/03/17 12:00 57 16 120/47 100 02/03/17 12:00 57 02/03/17 12:00 50 02/03/17 12:00 97.9 02/03/17 11:00 57 16 124/46 100 02/03/17 10:00 62 02/03/17 10:00 62 16 132/48 100 02/03/17 09:00 65 16 148/53 100 02/04/17 02/04/17 02/04/17 07:00 15:00 23:00 Intake Total 425 ml Output Total 210 ml Balance 215 ml Result Diagram: 02/03/17 0502/03/17525 Imaging Studies Last 24 hours Impressions Chest X-Ray 02/04/17599 Signed Impressions: Service Date/Time: Saturday, February 04, 2017 03:25 - CONCLUSION: Diffuse pleural-parenchymal density throughout the right lung, unchanged. Minimal left basilar density with improvement on current study. Jani Gilman MD Administered Medications Medications (Trade) Dose Ordered Sig/Garcia Route PRN Reason Start Time Stop Time Status Last Admin Dose Admin Phenylephrine HCl/ Dextrose (Neosynephrine Inj/D5W 500 ml Inj) 500 ml @ 0 mls/hr TITRATE IV 01/31/17 12:00 02/04/17 02:17 Chlorhexidine Gluconate 3 pack 3 pack DAILY@04 TOPICAL 02/01/17 04:00 02/05/17 04:01 02/04/17 02:18 Fentanyl Citrate 250 ml @ 0 mls/hr TITRATE IV 01/31/17 18:15 02/04/17 02:18 Vasopressin 40 units/Dextrose 100 ml @ 1.5 mls/hr Q24H IV 01/31/17 21:36 02/04/17 05:36 Propofol (Diprivan 1000 Mg/100ml Inj) 100 ml @ 0 mls/hr TITRATE IV 02/02/17 09:00 02/04/17 05:40 Artificial Tears (Tears Naturale Opth Soln) 1 drop Q8HR EACH EYE 02/02/17 14:00 02/04/17 05:38 Objective Remarks GENERAL: Sedated. SKIN: Warm and dry. HEAD: Normocephalic. EYES: No scleral icterus. No injection or drainage. NECK: Supple, trachea midline. No JVD or lymphadenopathy. LYMPHATIC: No adenopathy. CARDIOVASCULAR: Regular rate and rhythm without murmurs. RESPIRATORY: Breath sounds equal bilaterally. Vent assisted. GASTROINTESTINAL: Abdomen soft, non-tender, nondistended. EXTREMITIES: No cyanosis, or edema. MUSCULOSKELETAL: Adequate muscle tone. NEUROLOGICAL: Sedated Assessment/Plan Assessment 1. Non-small cell lung carcinoma, now appears to have metastatic disease. He first presented in January 2014 with a lung mass in the right upper lobe. He received stereotactic radiation to the lung mass. He later developed mediastinal adenopathy and was treated with radiation with concurrent chemotherapy followed by consolidation chemotherapy which he completed in October 2014. He had a good response. He was supposed to follow-up in the oncology clinic after he came back from [place] last Fall, but he did not make the appointment. He now presents in respiratory failure. CT angiogram did not show any pulmonary embolism; however, there is mass-like consolidation at the right apex and right perihilar region consistent with recurrent bronchogenic carcinoma. There is diffuse bone lesion in the ribs and thoracic spine. There are also metastatic lesions in the liver. This is most consistent with metastatic lung cancer. His prognosis is very poor. He had received full radiation to the thorax and I do not think he could receive anymore radiation to the chest. Treatment will be palliative in nature. However, he is currently on the ventilator and he is not a candidate for palliative chemotherapy. Cytology form thoracentesis is pending. 5/5 Pleural fluid cytology +non small cell carcinoma c/w malignant pleural effusion. 2. Respiratory failure due to progression of lung cancer as above. 3. Leukocytosis consistent with leukemoid reaction. 5/ WBC trended down to normal. 4. Anemia and thrombocytopenia possibly due to his acute illness and marrow suppression. He may also have a consumptive process like DIC. 5/4 platelet stabilized. Fibrinogen elevated. 5. Atrial fibrillation with rapid ventricular rate. 6. Septic shock, currently on antibiotics and pressors. Plan Plan: 1. The patient has metastatic cancer with malignant pleural effusion. He is not a candidate for palliative chemotherapy. Family has decided on DNR and not escalating care. I would recommend hospice care. Palliative care is following. Prognosis is very poor. Jeff Benedict MD February 04, 2017 08:29
[2017-02-04] MEDS: RESP: BUDESONIDE 0.5 MG/2 ML NEB NEB SCH (08:48)
[2017-02-04] MEDS ORDERED: RESP: ALBUTEROL 2.5 MG/IPRATROPIUM 0.5 MG NEB (SCH) NEB (10:00)
--- NOTE | 2017-02-04 10:17 | HHI.CCPN ---
Subjective Remarks/Hospital Course 81yM with history of lung cancer s/p chemo and radiation, the last treatment was well over a year ago, who presents with a slowly progressive shortness of breath and sputum production over the last few weeks. He denies any fever or chills. denies dyspnea on exertion, but endorses significant progressive fatigue. He and his family state that the intent of his cancer treatment was curative and not palliative, and he does not currently know if his cancer is in remission or not. In the emergency department, he was significantly dyspneic and in respiratory distress. He was placed on BiPAP with improvement in his symptoms. he was also found to be in new-onset Atrial fibrillation with rapid ventricular response. He was started on a diltiazem drip for this. His chest xray demonstrates complete opacification of the right lung field with some element of mediastinal shift towards the right. His laboratory data is significant for a wbc 34k, plt 148, Na 132, Cr 0.93, alk phos 369, BNP 175, lactate 2.8. negative troponin. Critical Care medicine is consulted to evaluate and manage his hypoxic respiratory failure. 02/01: central line placed overnight. this morning, on 3 vasopressors. toes with cyanosis. very ill at this time. intubated yesterday afternoon. clinically declining. chest tube with 1100 out yesterday, serous. Even after yesterday's long conversation prior to intubation about code status and the patient will likely not come off the ventilator if intubated and will likely of lung cancer soon, patient's with dementia presents today with minimal if any knowledge of yesterday's conversation, and asks, "can the breathing tube come out today?" palliative following. I share many of the daughter's concerns that Mr. Hoang may not be capacitated to fully understand and make informed medical decisions for him. 02/02: Afebrile. Received 5 L normal saline overnight. In sinus tachycardia. Eyes are open. Minimal output of chest tube overnight. Tube feeds not been started yet. Subjective: 02/03: Afebrile. Noted change to DNR status yesterday. Currently normal sinus rhythm. Eyes are open. 02/04 Patient remains sedated with Diprivan, fentanyl and intubated. On Neosyn 30 mics and Vasopressin. Objective Vital Signs Date Time Temp Pulse Resp B/P Pulse Ox O2 Delivery O2 Flow Rate FiO2 02/04/17 09:30 64 16 130/58 99 134/79 02/04/17 08:49 35 02/04/17 08:00 98.0 01/31/17 07:20 BiPAP Intake and Output 02/03/17 02/03/17 02/04/17 08:00 16:00 00:00 Intake Total 1807 ml 1752 ml 351 ml Output Total 100 ml 150 ml 160 ml Balance 1707 ml 1602 ml 191 ml Result Diagram: 02/03/17 0526 02/03/17 0526 Imaging Last Impressions Chest X-Ray 02/04/17 0600 Signed Impressions: Service Date/Time: Saturday, February 04, 2017 03:25 - CONCLUSION: Diffuse pleural-parenchymal density throughout the right lung, unchanged. Minimal left basilar density with improvement on current study. Jani Gilman MD CT Angiography 01/31/17 0000 Signed Impressions: Service Date/Time: Tuesday, January 31, 2017 07:34 - CONCLUSION: 1. No evidence for pulmonary embolism. 2. Masslike consolidation right apex and right perihilar region, is consistent with bronchogenic carcinoma. 3. Diffuse sclerotic metastasis. 4. There are metastatic lesions to the liver Jani Gilman MD Objective Remarks GENERAL: 81-year-old male, critically ill intubated and sedated SKIN: Warm and dry. No rash. Cyanotic toes bilaterally HEAD: Atraumatic. Normocephalic. EYES: Pupils equal and round about 2-3 mm bilaterally and reactive. No scleral icterus. No injection or drainage. ENT: No nasal bleeding or discharge. Mucous membranes pink and moist. NECK: Trachea midline. No JVD. CARDIOVASCULAR: Tachycardic, RR. S1, S2 no S4. Without murmur. RESPIRATORY: Coarse crackles appreciated throughout the right lung sol. Diminished. GASTROINTESTINAL: Abdomen soft, non-tender, nondistended. Hypoactive bowel sounds are appreciated MUSCULOSKELETAL: Extremities 1+ peripheral edema. No obvious deformities. NEUROLOGICAL: Arousable on the ventilator. Opens eyes. Minimal gag. Moves all 4 extremities spontaneous. Not following commands. Date of Insertion: February 01, 2017 Line: Central Venous Catheter Side: Right Location: Subclavian A/P Assessment and Plan Neuro/Psych: Metabolic Encephalopathy Monitor neuro status Currently on propofol drip at 30 mg/kg/m/fentanyl drip at 100 mg an hour for sedation/analgesia while intubated goal RASS -2. Daily sedation vacation Respiratory: Acute hypoxic respiratory failure Community-acquired pneumonia History of lung cancer, recurrent, stage IV = Right pleural effusion History [facility] 16/550/1.0/ Ventilator bundle Duo nebs every 4 hours with albuterol breakthrough 2 every hours when necessary CT chest: No PE, right apex/perihilar masslike consolidation. Left upper lobe pulmonary nodule 7 mm. Severe centrilobular emphysema. Metastases to thoracic , lumbar ribs and liver Right pigtail catheter -40 cm H2O - monitor CT drainage Pleural fluid showed malignant cells suspicious for non-small cell ca Cardiovascular: New-onset atrial fibrillation with rapid ventricular response - currently sinus tachycardia Septic Shock Dyslipidemia --Wean off pressors ( On Neosyn 30 mics, Vasopressin) monitor HR and BP keep MAP >65mmHg --2d echo 01/31: Ejection fraction 60%. No regional wall motion abnormality. Small pericardial effusion Renal: Monitor renal function, I/O's, electrolytes replacement as needed FEN/GI: Acute protein calorie malnutritionmoderate Hyponatremia Hypo-magnesium Hypopotassemia Start Jevity 1.5 goal 50 cc an hour Protonix for GI prophylaxis Colace twice a day/Senokot daily for bowel regimen Replacing electrolytes as clinically indicated Heme: Normocytic anemia Thrombocytopenia Non-small cell carcinoma lung- right upper lobe with metastases to bone/ribs Monitor CBC daily. Follow trends. Dr. Benedict/oncology is following. Not a candidate for palliative radiation therapy due to intubation. Cytology from pleural fluid showed malignant cells suspicious for non small cell ca. Palliative care is following ID: Community acquired pneumonia Possible postobstructive pneumonia Continue cefepime and azithromycin day #4 Pertinent cultures 02/01 - sputum - Gram stain negative. 01/31 - blood cultures 2 - no growth 01/31 - urine - no growth to date 01/31 - urine Legionella and pneumococcal antigens negative Endocrine: Hyperglycemia of critical illness Chronic prednisone use -- SSI, medium scale, every 6 hours - On Solu-Medrol 40 IV every 8 hours Prophylaxis: GI Prophylaxis Protonix 40 mg IV 24 hours DVT Prophylaxis -- SCDs Lovenox 40 mg subcutaneous every 24 Lines: right IJ CVL 01/31 Palliative care is following patient is comfort measures only with no escalation of care per palliative care. Level 2 Wayne Diaz MD February 04, 2017 10:17
[2017-02-04 12:57] LABS: BASOPHIL % 0.1 % (0.0-2.0); EOSINOPHIL # 1.2 TH/MM3 (0-0.4); EOSINOPHIL % 7.1 % (0.0-4.0); HEMATOCRIT 23.6 % (39.0-51.0); LYMPH % 3.5 % (9.0-44.0); LYMPHOCYTE # 0.6 TH/MM3 (1.0-4.8); MEAN CELL VOLUME 86.1 FL (80.0-100.0); MEAN CORPUSCULAR HEMOGLOBIN 28.5 PG (27.0-34.0); MEAN CORPUSCULAR HGB CONC 33.1 % (32.0-36.0); MONO % 6.5 % (0.0-8.0); NEUT % 82.8 % (16.0-70.0); PLATELET COUNT 98 TH/MM3 (150-450); RED BLOOD COUNT 2.74 MIL/MM3 (4.50-5.90); WHITE BLOOD COUNT 16.9 TH/MM3 (4.0-11.0)
[2017-02-04 13:01] LABS: HEMO FLAGS AUTO DIFF
[2017-02-04 13:17] LABS: BICARBONATE 27.7 MEQ/L (21.0-32.0); MAGNESIUM 2.1 MG/DL (1.5-2.5); POTASSIUM 3.9 MEQ/L (3.5-5.1)
[2017-02-04 13:30] LABS: CALCIUM-PROTEIN CORRECTED 9.1 MG/DL (8.5-10.1)
[2017-02-04 13:38] LABS: BANDS 8 % (0-6); EOSINOPHILS 10 % (0-4); OVALOCYTES 1+ (NORMAL); PLATELET ESTIMATE SMEAR LOW (NORMAL); PLATELET MORPHOLOGY NORMAL (NORMAL); POLYS (SEG NEUTROPHILS) 75 % (16-70); SCAN/DIFF FINAL DIFF MANUAL; WBC DIFF SAMPLE 100
--- NOTE | 2017-02-04 13:40 | HHI.HCPN ---
Reason for visit a. To assist with evaluation and management of symptoms including: dyspnea, anxiety, malnutrition, pain b. To assist medical decision maker(s) with: better understanding of current medical conditions; weighing benefits/burdens of medical treatment options; making medical treatment decisions. (Aparna Louise) Subjective/Interval History Remains intubated sedated requiring pressors for hemodynamic support. No escalation of care had been requested by the family. Family is discussing the possibility of transitioning to comfort care. He is being followed by oncology who is recommending hospice care as there are no further interventions for palliation. He remains afebrile. His vital signs are stable with support of vasopressin and phenylephrine. His laboratory studies indicate an elevated white blood cell count of 16.9 and progressive anemia with hemoglobin decreasing from 8.7 to 7.8 and hematocrit decreasing from 25.4 to 23.6. Pleural fluid cytology indicates malignant cells suspicious for non-small cell carcinoma are present. Chest x-ray shows diffuse pleural parenchymal density throughout the right lung unchanged. Minimal left basilar density with improvement on current study . Family/friend interactions Patient seen today to evaluate comfort, dyspnea, family goals. Family requested a family meeting to change care goals to extubation and allow for a natural passing. This was discussed at length with Keren (spouse), Kendra ( daughter), Meme (daughter) and Zachary (brother of Keren). They expressed understanding that his prognosis was very poor and that his condition was terminal. The stressed that Mr. Hoang would not want these artificial interventions and that he had spoken with all members of his family at multiple times that he did not want artificial support and wanted to be allowed to naturally. This was discussed with Dr. Hector and Dr. Camejo who agreed that this was appropriate in light of his condition and terminal diagnosis. Telephone conversation with the daughter who is in [place], Ladi, was held and update given. She stated that she agrees with this course of treatment and reiterated that her father had spoken to her many times regarding his wishes for a natural . Withdrawal procedures were discussed and anticipatory guidance given. Exhibits B and C were signed and witnessed. All questions were answered. (Aparna Louise) Advance Directives Living Will: Completed, but not made available Health Care Surrogate: Completed, but not made available Durable Power of Medical Clerk: Completed, but not made available (Aparna Louise) Objective Vital Signs Date Time Temp Pulse Resp B/P Pulse Ox O2 Delivery O2 Flow Rate FiO2 02/04/17 11:39 92 35 02/04/17 10:00 59 02/04/17 09:30 64 16 130/58 99 134/79 02/04/17 09:00 70 16 105/53 96 106/54 02/04/17 08:50 65 16 124/59 98 02/04/17 08:49 100 35 02/04/17 08:30 67 16 121/57 98 119/57 02/04/17 08:00 35 02/04/17 08:00 72 02/04/17 08:00 98.0 64 16 123/60 99 136/111 02/04/17 07:50 65 16 99 02/04/17 07:30 65 16 120/58 99 02/04/17 07:00 66 16 109/53 98 02/04/17 06:50 65 16 98 02/04/17 06:00 65 02/04/17 04:57 100 35 02/04/17 04:00 35 02/04/17 04:00 97.2 63 16 143/66 100 02/04/17 04:00 62 02/04/17 02:00 62 02/04/17 01:41 100 35 02/04/17 00:00 35 02/04/17 00:00 64 02/04/17 00:00 97.5 64 16 152/56 100 02/03/17 22:14 100 35 02/03/17 22:00 66 02/03/17 20:18 100 35 02/03/17 20:00 66 02/03/17 20:00 97.4 66 16 160/59 100 02/03/17 20:00 35 02/03/17 18:00 69 02/03/17 17:06 100 35 02/03/17 16:00 50 02/03/17 16:00 62 02/03/17 16:00 62 16 139/50 100 02/03/17 16:00 97.5 02/03/17 15:00 56 17 112/40 100 02/03/17 14:00 57 02/03/17 14:00 57 16 127/44 97 02/03/17 13:50 99 35 Intake & Output 02/04/17 02/04/17 07:00 19:00 Intake Total 776 ml Output Total 370 ml Balance 406 ml IV Total 776 ml Tube Feeding 0 ml Output Urine Total 350 ml Chest Tube Drainage Total 20 ml # Bowel Movements 1 Physical Exam CONSTITUTIONAL/GENERAL: This is a thin, chronically ill-appearing patient. sedated on mech vent TUBES/LINES/DRAINS: Peripheral IVs LACF , RIJ , Left radial arterial line, ETT , OGT, rt chest tube SKIN: No jaundice, rashes, or lesions. Several scattered areas Ecchymoses on upper extremities. No wounds seen anteriorly. Skin temperature appropriate. Not diaphoretic. CARDIOVASCULAR: Regular rhythm, controlled rate, NSR 60-70's. +JVD. Unable to palpate pedal pulses, feet warm with 3-5 sec cap refill.. RESPIRATORY/CHEST: Symmetric, unlabored resp on mech vent. Coarse air movement throughout, decreased air to basis.+ small rt chest tube, sm amt drainage. GASTROINTESTINAL: Abdomen soft,flat, nondistended. No palpable masses. No guarding. Bowel sounds hypoactive. OGT clamped. NEUROLOGICAL: sedated on mech vent, non responsive to exam. PSYCHIATRIC: sedated, appearing comfortable. (Aparna Louise) Diagnostic Tests Laboratory Laboratory Tests Test 02/02/17 02/02/17 02/02/17 02/03/17 05:00 08:21 11:56 05:26 White Blood Count 19.7 TH/MM3 10.8 TH/MM3 (4.0-11.0) (4.0-11.0) Red Blood Count 3.59 MIL/MM3 2.94 MIL/MM3 (4.50-5.90) (4.50-5.90) Hemoglobin 10.2 GM/DL 8.7 GM/DL (13.0-17.0) (13.0-17.0) Hematocrit 32.5 % 25.4 % (39.0-51.0) (39.0-51.0) Mean Corpuscular Volume 90.5 FL 86.1 FL (80.0-100.0) (80.0-100.0) Mean Corpuscular Hemoglobin 28.4 PG 29.4 PG (27.0-34.0) (27.0-34.0) Mean Corpuscular Hemoglobin 31.4 % 34.1 % Concent (32.0-36.0) (32.0-36.0) Red Cell Distribution Width 16.0 % 15.8 % (11.6-17.2) (11.6-17.2) Platelet Count 82 TH/MM3 80 TH/MM3 (150-450) (150-450) Mean Platelet Volume 8.7 FL 9.2 FL (7.0-11.0) (7.0-11.0) Sodium Level 131 MEQ/L 129 MEQ/L (136-145) (136-145) Potassium Level 4.6 MEQ/L 3.3 MEQ/L (3.5-5.1) (3.5-5.1) Chloride Level 105 MEQ/L 94 MEQ/L (98-107) (98-107) Carbon Dioxide Level 17.7 MEQ/L 23.3 MEQ/L (21.0-32.0) (21.0-32.0) Anion Gap 8 MEQ/L (5-15) 12 MEQ/L (5-15) Blood Urea Nitrogen 16 MG/DL (7-18) 29 MG/DL (7-18) Creatinine 0.92 MG/DL 1.27 MG/DL (0.60-1.30) (0.60-1.30) Estimat Glomerular Filtration 79 ML/MIN (>89) 54 ML/MIN (>89) Rate Random Glucose 108 MG/DL 226 MG/DL (74-106) (74-106) Calcium Level 7.0 MG/DL 6.7 MG/DL (8.5-10.1) (8.5-10.1) Protein Corrected Calcium 8.4 MG/DL 8.2 MG/DL (8.5-10.1) (8.5-10.1) Total Protein 4.5 GM/DL 4.2 GM/DL (6.4-8.2) (6.4-8.2) Blood Gas Puncture Site NICA ART LINE Blood Gas Patient Temperature 98.6 98.6 Blood Gas HCO3 12 mmol/L 15 mmol/L (22-26) (22-26) Blood Gas Base Excess -15.8 mmol/L -9.9 mmol/L (-2-2) (-2-2) Blood Gas Oxygen Saturation 98 % (90-100) 98 % (90-100) Arterial Blood pH 7.12 7.36 (7.380-7.420) (7.380-7.420) Arterial Blood Partial 38 mmHg (38-42) 27 mmHg (38-42) Pressure CO2 Arterial Blood Partial 304 mmHg 310 mmHg Pressure O2 (61-120) (61-120) Arterial Blood Oxygen Content 14.8 Vol % 13.9 Vol % (12.0-20.0) (12.0-20.0) Arterial Blood 1.0 % (0-4) 1.4 % (0-4) Carboxyhemoglobin Arterial Blood Methemoglobin 1.0 % (0-2) 0.9 % (0-2) Blood Gas Hemoglobin 10.2 G/DL 9.6 G/DL (12.0-16.0) (12.0-16.0) Oxygen Delivery Device VENTILATOR VENTILATOR Blood Gas Ventilator Setting SEE COMMENTS Blood Gas Inspired Oxygen 100 % 80 % Neutrophils (%) (Auto) 94.7 % (16.0-70.0) Lymphocytes (%) (Auto) 1.8 % (9.0-44.0) Monocytes (%) (Auto) 2.7 % (0.0-8.0) Eosinophils (%) (Auto) 0.7 % (0.0-4.0) Basophils (%) (Auto) 0.1 % (0.0-2.0) Neutrophils # (Auto) 10.2 TH/MM3 (1.8-7.7) Lymphocytes # (Auto) 0.2 TH/MM3 (1.0-4.8) Monocytes # (Auto) 0.3 TH/MM3 (0-0.9) Eosinophils # (Auto) 0.1 TH/MM3 (0-0.4) Basophils # (Auto) 0.0 TH/MM3 (0-0.2) CBC Comment AUTO DIFF Differential Total Cells 100 Counted Neutrophils % (Manual) 82 % (16-70) Band Neutrophils % 13 % (0-6) Lymphocytes % 3 % (9-44) Monocytes % 1 % (0-8) Basophils % 1 % (0-2) Neutrophils # (Manual) 10.3 TH/MM3 (1.8-7.7) Differential Comment FINAL DIFF MANUAL Platelet Estimate LOW (NORMAL) Platelet Morphology Comment NORMAL (NORMAL) Ovalocytes 1+ (NORMAL) Acanthocytes OCC (NORMAL) Keratocytes OCC (NORMAL) Prothrombin Time 12.0 SEC (9.8-11.6) Prothromb Time International 1.1 RATIO Ratio Activated Partial 52.0 SEC Thromboplast Time (24.3-30.1) Fibrinogen 473 mg/dL (227-377) Lactic Acid Level 2.9 mmol/L (0.4-2.0) Phosphorus Level 2.8 MG/DL (2.5-4.9) Magnesium Level 1.3 MG/DL (1.5-2.5) Total Bilirubin 0.4 MG/DL (0.2-1.0) Aspartate Amino Transf 15 U/L (15-37) (AST/SGOT) Alanine Aminotransferase 11 U/L (12-78) (ALT/SGPT) Alkaline Phosphatase 177 U/L (45-117) Total Creatine Kinase 122 U/L (39-308) Albumin 1.5 GM/DL (3.4-5.0) Test 02/04/17 12:02 White Blood Count 16.9 TH/MM3 (4.0-11.0) Red Blood Count 2.74 MIL/MM3 (4.50-5.90) Hemoglobin 7.8 GM/DL (13.0-17.0) Hematocrit 23.6 % (39.0-51.0) Mean Corpuscular Volume 86.1 FL (80.0-100.0) Mean Corpuscular Hemoglobin 28.5 PG (27.0-34.0) Mean Corpuscular Hemoglobin 33.1 % Concent (32.0-36.0) Red Cell Distribution Width 16.0 % (11.6-17.2) Platelet Count 98 TH/MM3 (150-450) Mean Platelet Volume 9.1 FL (7.0-11.0) Neutrophils (%) (Auto) 82.8 % (16.0-70.0) Lymphocytes (%) (Auto) 3.5 % (9.0-44.0) Monocytes (%) (Auto) 6.5 % (0.0-8.0) Eosinophils (%) (Auto) 7.1 % (0.0-4.0) Basophils (%) (Auto) 0.1 % (0.0-2.0) Neutrophils # (Auto) 14.0 TH/MM3 (1.8-7.7) Lymphocytes # (Auto) 0.6 TH/MM3 (1.0-4.8) Monocytes # (Auto) 1.1 TH/MM3 (0-0.9) Eosinophils # (Auto) 1.2 TH/MM3 (0-0.4) Basophils # (Auto) 0.0 TH/MM3 (0-0.2) CBC Comment AUTO DIFF Sodium Level 129 MEQ/L (136-145) Potassium Level 3.9 MEQ/L (3.5-5.1) Chloride Level 92 MEQ/L (98-107) Carbon Dioxide Level 27.7 MEQ/L (21.0-32.0) Anion Gap 9 MEQ/L (5-15) Blood Urea Nitrogen 31 MG/DL (7-18) Creatinine 1.06 MG/DL (0.60-1.30) Estimat Glomerular Filtration 67 ML/MIN (>89) Rate Random Glucose 94 MG/DL (74-106) Calcium Level 7.3 MG/DL (8.5-10.1) Phosphorus Level 2.0 MG/DL (2.5-4.9) Magnesium Level 2.1 MG/DL (1.5-2.5) (Aparna Louise) Result Diagram: 02/04/17 1202 02/04/17 1202 Microbiology Laboratory Tests Test 02/04/17 12:02 White Blood Count 16.9 Red Blood Count 2.74 Hemoglobin 7.8 Hematocrit 23.6 Mean Corpuscular Volume 86.1 Mean Corpuscular Hemoglobin 28.5 Mean Corpuscular Hemoglobin 33.1 Concent Red Cell Distribution Width 16.0 Platelet Count 98 Mean Platelet Volume 9.1 Neutrophils (%) (Auto) 82.8 Lymphocytes (%) (Auto) 3.5 Monocytes (%) (Auto) 6.5 Eosinophils (%) (Auto) 7.1 Basophils (%) (Auto) 0.1 Neutrophils # (Auto) 14.0 Lymphocytes # (Auto) 0.6 Monocytes # (Auto) 1.1 Eosinophils # (Auto) 1.2 Basophils # (Auto) 0.0 CBC Comment AUTO DIFF Differential Total Cells 100 Counted Neutrophils % (Manual) 75 Band Neutrophils % 8 Lymphocytes % 2 Monocytes % 5 Eosinophils % 10 Neutrophils # (Manual) 14.0 Differential Comment FINAL DIFF MANUAL Platelet Estimate LOW Platelet Morphology Comment NORMAL Ovalocytes 1+ Sodium Level 129 Potassium Level 3.9 Chloride Level 92 Carbon Dioxide Level 27.7 Anion Gap 9 Blood Urea Nitrogen 31 Creatinine 1.06 Estimat Glomerular Filtration 67 Rate Random Glucose 94 Calcium Level 7.3 Protein Corrected Calcium 9.1 Phosphorus Level 2.0 Magnesium Level 2.1 Total Protein 4.1 Date/Time Procedure Status Source Growth 02/01/17 02:40 Gram Stain - Final Complete Sputum Endotracheal 02/01/17 02:40 Sputum Culture - Final Complete Sputum Endotracheal LIGHT GROWTH NORMAL RESPIRATORY CARLITA 01/31/17 18:00 Legionella Antigen - Final Complete Urine Catheterized Urine PRESUMPTIVE NEGATIVE FOR LEGIONELLA P... 01/31/17 18:00 Streptococcus pneumoniae Antigen (M - Final Complete Urine Catheterized Urine PRESUMPTIVE NEGATIVE FOR STREPTOCOCCU... 01/31/17 12:45 Fungal Smear - Final Resulted Fluid Pleural Fluid NO FUNGAL ELEMENTS SEEN. 01/31/17 12:45 Fungal Culture Resulted Fluid Pleural Fluid Pending 01/31/17 12:45 Acid Fast Stain - Final Resulted Fluid Pleural Fluid NO ACID FAST BACILLI SEEN 01/31/17 12:45 Mycobacterial Culture Resulted Fluid Pleural Fluid Pending 01/31/17 05:35 Aerobic Blood Culture - Preliminary Resulted Blood Peripheral NO GROWTH IN 4 DAYS 01/31/17 05:35 Anaerobic Blood Culture - Preliminary Resulted Blood Peripheral NO GROWTH IN 4 DAYS Imaging Last 24 hours Impressions Chest X-Ray 02/04/17 0600 Signed Impressions: Service Date/Time: Saturday, February 04, 2017 03:25 - CONCLUSION: Diffuse pleural-parenchymal density throughout the right lung, unchanged. Minimal left basilar density with improvement on current study. Jani Gilman MD Procedures 01/31/17thoracentesis, pigtail catheter, intubation, central line (Aparna Louise) Assessment and Plan Disease Oriented Problem List: (1) Leukocytosis (2) Community acquired pneumonia (3) Acute respiratory failure with hypoxia (4) Lung malignancy (5) Atrial fibrillation, new onset Symptom Scale: (1) Dyspnea 0-10 Scale: Unable to quantify (None seen, stable on mechanical ventilation) Pertinent Non-Medical Issues Psychosocial:Patient lives at home with spouse, x 61 years. Has 1 brother, 2 sisters. Originally from [place], lived in [place] since 1997. 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 Has 3 children, 3 girls. Spiritual: Legal:Patient is currently able to participate in decision-making. Indicates has advanced directive or possible DPOA document naming his , jennifer Guido as secondary. Requested copies of this documentation. Daughter Lata expresses concern that patient has had mental status deterioration, she suspects dementia process and patient does not remember information from one day to the other, she is concerned about the patient's ability to make informed decisions. Ethical issues impacting care: Important Contacts Spouse Keren Hoang [phone] Lata Yanez dtr [phone] Dianne Martinez dtr [phone] Niloaviva Mackenzie dtr (estranged) [phone] . Prognosis This patient was admitted for acute hypoxic respiratory failure. He has known history of COPD, as well as non-small cell lung cancer, diagnosed in 2013. He has completed chemotherapy, radiation. Appears to have new disease progression with liver metastasis, based on new imaging though I would defer to oncology for full prognosis relating to his disease progression (oncology following). He is currently ventilated receiving sedation, pain medication, antibiotics. Remains high-risk for further clinical deterioration, and complications. Code Status: No Code (Family requests no escalation of care.) Plan * Legal decision maker: Patient is now unable to participate in decision-making due to clinical condition. Had previously indicated has advanced directive or possible DPOA document naming his , jennifer Guido as secondary. Requested copies of this documentation--we have been unable to obtain copies at this point. Not clear that this POA includes healthcare decision making. Daughter Lata expressed concern that patient has had mental status deterioration, she suspects dementia process and patient does not remember information from one day to the other, she is concerned about the patient's ability to make informed decisions. Nursing, other staff members have witnessed 's repetitiveness, agitated behavior and forgetting conversations that took place. Palliative care has also noted the same behaviors, does not appear that would be able to make informed decision making. Per [place] statutes legally decision-making would fall to the spouse however given concern for her mental status, would then fall to majority of the patient's 3 adult daughters.Would be best to have shared decision making, SUPPORTED by majority of adult children. 02/02 All daughters have been spoken to by palliative, all 3 are in agreement with DNR, no further escalation of treatment. In family meeting on 02/04/2017 all family members agreed to transition to comfort measures only. * Goals: Family meeting done 11:15 02/04. Met w 2 daughters, Lata and Meme, , bro in law, Zachary, at their request to discuss transition to comfort measures only. * CODE STATUS: DNR * SYMPTOMS: Orders for pre-withdrawal, time of withdrawal and post withdrawal have been entered by palliative care MBenjamin. --Dyspnea-underlying COPD, lung cancer diagnosed 2014baseline shortness of breath, chronic cough. Presented for worsening shortness of breath. S/P thoracentesis, pigtail catheter 02/01. Intubated 02/01, on sedation, breathing comfortably. Would be difficult to wean off of mechanical vent due to multiple conditions. At this time family has chosen comfort measures. --Malnutrition-poor appetite for the past couple weeks. Now with OG tube in place status post intubation. Family declining TF, requesting comfort measures with continued ventilator support. --Anxiety-high risk for given pulmonary diagnoses; dyspnea. intubated. Currently breathing comfortably on mechanical vent, sedated with fentanyl, appears comfortable at time of exam. * Palliative care will continue to follow during hospital course as condition evolves, to assist patient/decision-maker with understanding of medical conditions, weighing benefits/burdens of treatment options, for clarification of goals of treatment. Additionally will assist with any symptoms of palliative concern (Aparna Louise) Attestation To help prompt me to consider important information that might be impacting today's encounter and assessment, information from prior notes written by myself or my colleagues may have been "brought forward" into today's note. My signature on this note, however, is an attestation that I personally performed the exam, history, and/or decision-making noted today, and, unless otherwise indicated, the interactions with patient, family, and staff as well as the review of records all occurred today. I also attest that the listed assessment and stated plan reflect my best clinical judgment today based on the combination of historical information, prior notes, and today's exam/ interactions. When time spent is documented, it refers only to time spent today by the signer, or if indicated, combined time spent today by collaborating physician/nurse practitioner. (Aparna Louise) Collaborating MD Comments Dual visit w RadhaToma Aspen FLANAGAN Concur with above documentation. Pt with no improvement, remains in ICU on mech vent. Mult prior meetings with family. Today met w family at length- all express that he would not want to cont artificial measures. tearful, verbalizes he is going to from this and that he would not want to on machines. repetitive at times. 2 adult daughters, request transition to comfort and removal of lifesupport today as consistent w pt known wishes. Following fam meeting,call from Dtr Annmarie in [place]. updated, she is in agreement with withdrawal based on pt known wishes. PE: CONSTITUTIONAL/GENERAL: This is a thin, chronically ill-appearing patient. sedated on mech vent TUBES/LINES/DRAINS: Peripheral IVs LACF , RIJ , ETT, OGT, rt chest tube SKIN: No jaundice, rashes, or lesions.+ mult Ecchymoses on upper extremities. Skin warm. CARDIOVASCULAR: Regular rhythm, NSR 60s vis bedside monitor. +JVD. Unable to palpate pedal pulses, feet warm RESPIRATORY/CHEST: Symmetric, unlabored resp on mech vent. Coarse air movement throughout, decreased air to basis.+ small rt chest tube, sm amt drainage in pleuevac. GASTROINTESTINAL: Abdomen soft,flat, nondistended. No palpable masses. No guarding. Bowel sounds hypoactive. OGT clamped. NEUROLOGICAL: sedated on mech vent, non responsive to exam. PSYCHIATRIC: sedated, appearing comfortable. (Reina Biggs) Collaborating Comments . Chart reviewed. Cased discussed with palliative care DRY GOODS INSPECTOR. Above DRY GOODS INSPECTOR note reviewed and I concur. . (Cisco Camejo MD) Aparna Louise February 04, 2017 13:39 Reina Biggs February 04, 2017 15:20 Cisco Camejo MD February 28, 2017 15:42
[2017-02-04] MEDS ORDERED: LORazepam 2 MG/ML VIAL IV ONE ×2 (13:45→14:00)
[2017-02-04] MEDS ORDERED: fentaNYL DRIP 250 ML IV SCH (14:00)
[2017-02-04] MEDS ORDERED: LORazepam 2 MG/ML VIAL IV PRN ×2 (14:15)
[2017-02-04] MEDS ORDERED: FUROSEMIDE 20 MG/2 ML VIAL IV PRN (14:15)
[2017-02-04] MEDS ORDERED: MORPHINE SULFATE 4 MG/ML INJ IV PRN (14:15)
[2017-02-04] MEDS ORDERED: BISACODYL 10 MG SUPP RECTAL PRN (14:15)
[2017-02-04] MEDS ORDERED: MORPHINE SULFATE 8 MG/ML INJ IV PUSH PRN (14:15)
[2017-02-04] MEDS ORDERED: LORazepam 2 MG/ML VIAL IVS PRN (14:15)
[2017-02-04] MEDS ORDERED: ACETAMINOPHEN 650 MG SUPP RECTAL PRN (14:15)
[2017-02-04] MEDS ORDERED: LORazepam 2 MG/ML VIAL IV SCH (16:00)
--- NOTE | 2017-03-11 10:35 | HHI.DS ---
Summary Note Date of : February 04, 2017 Time Of : 1525 Admission Date January 31, 2017 at 05:58 Admitting Diagnosis pneumonia/right pleural effusion/severe sepsis/A. fib with rapid cornelia Diagnosis at Time of : (1) Community acquired pneumonia ICD Code: J18.9 Diagnosis: Secondary (2) Acute respiratory failure with hypoxia ICD Code: J96.01 Diagnosis: Secondary (3) Lung malignancy ICD Code: C34.90 Diagnosis: Principal (4) Atrial fibrillation, new onset ICD Code: I48.91 Diagnosis: Secondary (5) Leukocytosis ICD Code: D72.829 Diagnosis: Secondary Procedures 01/31/17thoracentesis, pigtail catheter, intubation, central line Brief History Mr. Hoang is an 81 yr old man presented to the ED on 01/31/17, with c/o worsening SOB. He has known hx of COPD, and lung cancer currently undergoing radiation/ chemotherapy. He indicated it was the same as his prior issues w/ lung cancer, however daughter indicated it was worse. Denied fever, CP, other sx. Worsened w exertion, EMS provided albuterol which apparently made sx worse. * He was noted to be a and O at ED presentation. EKG noted atrial fibrillation rate 160. No acute ST changes. He received Cardizem, IV fluids. Hypotensive. CXR= right-sided atelectasis versus pneumonia with large right effusion. Known malignancy. Was placed on BiPAP. + Leukocytosis, WBC 34. Smith cultures obtained, started on IV antibiotics cefepime, azithromycin. He is admitted to ICU for further evaluation and management. * Order for CT angiogram rule out pulmonary emboli, further evaluate lung parenchyma. Tensive's notes discussion with patient, family. 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 Palliative care consulted to assist with clarification of goals of treatment. * CT angiogram with no evidence for PE. Masslike consolidation right apex and right perihilar region consistent with bronchogenic carcinoma. Diffuse sclerotic metastasis. Metastatic lesions to liver. Patient was admitted with pneumonia, respiratory failure found to have recurrent mets lung cancer to liver and bone. He underwent thoracentesis, pleural fluid positive malignant cells. Additional oncology history: ==Patient first diagnosed with lung cancer in 01/2014he fell in the shower injuring his right ribs resulting in pneumothorax. He required a chest tube, incidental findings of right lung mass 2.8 cm right upper lobe, + findings of severe emphysema. bx= Non-small cell lung carcinoma. Pulmonology, thoracic surgery were consulted patient was not felt to be candidate for surgery because of poor home in very function. == Completed stereotactic radiotherapy x 8 treatments 05/2014. ==06/2014 right apical lesion smaller pretracheal node present on the right/ consistent with disease progression == 07/2014 started carbo/Taxol plus XRT through 09/2014 == 05/2015 weight 56 kg == 2015 weight 57 kg //oncology follow-up note chronic cough with shortness of breath. A sling dyspnea on exertion and cough. Apical mass felt to be stable. Subcarinal mediastinal adenopathy stable. No clear progression of disease at this time. Continue close monitoring. == 02/2016 seen by oncology for follow-up, noted to be doing well. Maintaining active lifestyle. Weight 55 kg. Patient planning on traveling out of state, oncology planning for follow-up CT when he returns. == pt/family inform NO ONCOLOGY follow up since 02/2016. Had recently called Primary MD ANDRA dyspnea, abx ordered, doxycycline. . Significant Findings 01/31/17: Pathology: Pleural fluid, positive malignant cells, suspicious for non- small cell carcinoma. 02/04/17 1202 02/04/17 1202 Imaging Last Impressions Chest X-Ray 02/04/17 0600 Signed Impressions: Service Date/Time: Saturday, February 04, 2017 03:25 - CONCLUSION: Diffuse pleural-parenchymal density throughout the right lung, unchanged. Minimal left basilar density with improvement on current study. Jani Gilman MD CT Angiography 01/31/17 0000 Signed Impressions: Service Date/Time: Tuesday, January 31, 2017 07:34 - CONCLUSION: 1. No evidence for pulmonary embolism. 2. Masslike consolidation right apex and right perihilar region, is consistent with bronchogenic carcinoma. 3. Diffuse sclerotic metastasis. 4. There are metastatic lesions to the liver Jani Gilman MD . Hospital Course Patient remained intubated, sedated, requiring pressors for hemodynamic support. No escalation of care had been requested by the family. He was being followed by oncology who recommended hospice care, as there are no further interventions for palliation. On 02/04/17: He remained afebrile. His vital signs stable with support of vasopressin and phenylephrine. His laboratory studies indicated an elevated white blood cell count of 16.9 and progressive anemia with hemoglobin decreasing from 8.7 to 7.8 and hematocrit decreasing from 25.4 to 23.6. Pleural fluid cytology indicates malignant cells suspicious for non-small cell carcinoma are present. Chest x-ray shows diffuse pleural parenchymal density throughout the right lung unchanged. Minimal left basilar density with improvement on current study . Family/friend interactions 02/04/17: Patient seen today to evaluate comfort, dyspnea, family goals. Family requested a family meeting to change care goals to extubation and allow for a natural passing. This was discussed at length with Keren (spouse), Kendra ( daughter), Meme (daughter) and Zachary (brother of Keren). They expressed understanding that his prognosis was very poor and that his condition was terminal. The stressed that Mr. Hoang would not want these artificial interventions and that he had spoken with all members of his family at multiple times that he did not want artificial support and wanted to be allowed to naturally. This was discussed with Dr. Hector and Dr. Camejo who agreed that this was appropriate in light of his condition and terminal diagnosis. Telephone conversation with the daughter who is in [place], [place], was held and update given. She stated that she agreed, reiterated that her father had spoken to her many times regarding his wishes for a natural . Withdrawal procedures were discussed and anticipatory guidance given. Exhibits B and C were signed and witnessed. All questions were answered. . ELVIS ANGULO Mar 11, 2017 10:35
== END 2017-02-04 15:25 | disposition expired | DRG 871 ==
LOC: NEPC 05:03 → NEDA 05:58 → HIMW 07:55
PROVIDERS: ADMIT Surgery Surgical Critical Care; ATTEND Surgery Surgical Critical Care
PROC: 5A1945Z Respiratory Ventilation, 24-96 Consecutive Hours (ICD-10-PCS; principal; 2017-01-31)
PROC: 0W993ZZ Drainage of Right Pleural Cavity, Percutaneous Approach (ICD-10-PCS; 2017-01-31)
PROC: 0W9930Z Drainage of Right Pleural Cavity with Drainage Device, Percutaneous Approach (ICD-10-PCS; 2017-01-31)
PROC: 0BH17EZ Insertion of Endotracheal Airway into Trachea, Via Natural or Artificial Opening (ICD-10-PCS; 2017-01-31)
PROC: 03HY32Z Insertion of Monitoring Device into Upper Artery, Percutaneous Approach (ICD-10-PCS; 2017-02-01)
PROC: 02HV33Z Insertion of Infusion Device into Superior Vena Cava, Percutaneous Approach (ICD-10-PCS; 2017-02-01)
DX: A41.9 Sepsis, unspecified organism (principal); R65.21 Severe sepsis with septic shock; J96.01 Acute respiratory failure with hypoxia; J18.9 Pneumonia, unspecified organism; G93.41 Metabolic encephalopathy; Z51.5 Encounter for palliative care; J91.0 Malignant pleural effusion; J44.0 Chronic obstructive pulmonary disease with (acute) lower respiratory infection; C78.7 Secondary malignant neoplasm of liver and intrahepatic bile duct; C77.9 Secondary and unspecified malignant neoplasm of lymph node, unspecified; C79.51 Secondary malignant neoplasm of bone; E44.0 Moderate protein-calorie malnutrition; Z68.1 Body mass index [BMI] 19.9 or less, adult; J98.19 Other pulmonary collapse; E87.2 Acidosis; E87.1 Hypo-osmolality and hyponatremia; C34.10 Malignant neoplasm of upper lobe, unspecified bronchus or lung; I48.92 Unspecified atrial flutter; I31.3 Pericardial effusion (noninflammatory); J95.811 Postprocedural pneumothorax; D69.6 Thrombocytopenia, unspecified; D64.9 Anemia, unspecified; D72.823 Leukemoid reaction; I48.91 Unspecified atrial fibrillation; R73.9 Hyperglycemia, unspecified; E78.5 Hyperlipidemia, unspecified; E83.42 Hypomagnesemia; F41.9 Anxiety disorder, unspecified; E87.6 Hypokalemia; Z66 Do not resuscitate; Z68.23 Body mass index [BMI] 23.0-23.9, adult; Z79.52 Long term (current) use of systemic steroids; Z87.891 Personal history of nicotine dependence; Z92.21 Personal history of antineoplastic chemotherapy; Z92.3 Personal history of irradiation
CPT/HCPCS: 31500; 32551; 32554; 36556; 36600; 71010; 71275; 76937; 80048; 80053; 82150; 82550; 82805; 82945; 82948; 83605; 83615; 83735; 83880; 83986; 84100; 84155; 84157; 84439; 84443; 84484; 85007; 85027; 85384; 85610; 85730; 87015; 87040; 87070; 87102; 87116; 87205; 87206; 87449; 87641; 88112; 89051; 93005; 93306; 94002; 94003; 94640; 94664; 94667; 96374; 96375; C9113; J0330; J0456; J0692; J1650; J2060; J2250; J2270; J2370; J2920; J3010; J3475; J3480; J7030; J7040; J7050; J7060; J7626; P9047; Q9967